=== PATIENT | male | born 1980 | race Caucasian/White ===

== ENCOUNTER 2023-10-10 07:24 | Outpatient (RCR) | payer OTHER, SELFPAY | END 2023-10-19 09:00 | disposition home or self-care (01) | LOC: PT 07:24 | DX: Z98.890 Other specified postprocedural states (principal) | CPT/HCPCS: 97010; 97014; 97140; 97161; 97535 ==

== ENCOUNTER 2023-10-20 10:28 | Outpatient (RCR) | payer OTHER, SELFPAY | END 2024-04-14 15:44 | disposition home or self-care (01) | LOC: PT 10:28 | DX: Z98.890 Other specified postprocedural states (principal) | CPT/HCPCS: 97010; 97014; 97110; 97112; 97140 ==

== ENCOUNTER 2023-10-24 11:40 | Emergency (ER) | payer OTHER, SELFPAY ==
[2023-10-24] VITALS (13 sets, daily range): BP systolic 140–162; BP diastolic 82–97; PULSE 76–91; RESP 13–26; TEMP 37–37.1; O2SAT 97–100; BMI 24.6; BMI 22.3
--- OUTSIDE RECORDS SUMMARY | 2023-10-24 11:59 | XMS_ITS | CCD ---
Author Name Unknown Address [address] [place] [address] Organization [facility] Care Team Providers Care Commission Broker Name Role Phone Yaritza Dowling MD Primary Care Provider SCHILLING, OSMAN Attending Unavailable SCHILLING, OSMAN Referring Unavailable DOWLING, YARITZA Primary Care Unavailable SCHILLING, OSMAN Attending Unavailable SCHILLING, OSMAN Referring Unavailable DOWLING, YARITZA Primary Care Unavailable SCHILLING, OSMAN Attending Unavailable SCHILLING, OSMAN Referring Unavailable DOWLING, YARITZA Primary Care Unavailable SELF, SELF Referring Unavailable SCHILLING, OSMAN Attending Unavailable DOWLING, YARITZA Primary Care Unavailable SCHILLING, OSMAN Referring Unavailable SCHILLING, OSMAN Attending Unavailable DOWLING, YARITZA Primary Care Unavailable DOWLING, YARITZA Primary Care Unavailable SCHILLING, OSMAN Referring Unavailable SCHILLING, OSMAN Attending Unavailable DOWLING, YARITZA Primary Care Unavailable SCHILLING, OSMAN Referring Unavailable SCHILLING, OSMAN Attending Unavailable DOWLING, YARITZA Primary Care Unavailable SCHILLING, OSMAN Attending Unavailable SELF, SELF Referring Unavailable DOWLING, YARITZA Primary Care Unavailable SCHILLING, OSMAN Attending Unavailable SCHILLING, OSMAN Referring Unavailable Yaritza Dowling MD Primary Care Provider [phone] [address] ., DR YARITZA Patel Primary Care Unavailable MISC, DR ALFORD Admitting Unavailable MISC, DR ALFORD Attending Unavailable Yaritza Dowling MD Primary Care Provider [phone] SUSIE, IRINA L Referring Unavailable DOWLING, YARITZA Primary Care Unavailable SUSIE, IRINA L Admitting Unavailable SUSIE, IRINA L Attending Unavailable DOWLING, YARITZA Primary Care Unavailable SUSIE, IRINA L Referring Unavailable DANIEL HICKMAN Attending Unavailable SUSIE, IRINA L Referring Unavailable SUSIE, IRINA L Attending Unavailable DOWLING, YARITZA Primary Care Unavailable SUSIE, IRINA L Referring Unavailable SUSIE, IRINA L Attending Unavailable DOWLING, YARITZA Primary Care Unavailable SUSIE, IRINA L Referring Unavailable SUSIE, IRINA L Attending Unavailable DOWLING, YARITZA Primary Care Unavailable DOWLING, YARITZA Primary Care Unavailable SCHILLING, OSMAN S Referring Unavailable SUSIE, IRINA L Attending Unavailable DOWLING, YARITZA Primary Care Unavailable SUSIE, IRINA L Referring Unavailable IRINA RICHARDS Attending Unavailable YARITZA DOWLING Primary Care Unavailable DANIEL HICKMAN Attending Unavailable SELF, SELF Referring Unavailable YARITZA DOWLING Attending Unavailable Medications Current Medications Medication Drug Class(es) Dates Sig (Normalized) Sig (Original) acetaminophen 325 mg / oxyCODONE hydrochloride 5 mg oral tablet (3 sources) Opioid Agonist Start: 10-17-2023 take 1-2 tablets by mouth every four to six hours as needed for pain oxyCODONE-acetami nophen 5-325 MG per tablet Indications: S/P rotator cuff repair 1-2 tabs PO every 4-6 hrs as needed for pain 60 tablet 0 10/17/2023 Active Start: 10-09-2023 End: 10-14-2023 take 1-2 tablets by mouth every four to six hours as needed for pain oxyCODONE-acetaminophen 5-325 MG per tablet Indications: S/P rotator cuff repair 1-2 tabs PO every 4-6 hrs as needed for pain 60 tablet 0 10/09/2023 10/14/2023 Active Start: 10-09-2023 End: 10-09-2023 take 1-2 tablets by mouth every four hours as needed oxyCODONE-acetaminophen (PERCOCET) 5-325 MG per tablet 1-2 tablet diazePAM 10 mg oral tablet (8 sources) Benzodiazepine Start: 09-20-2022 take 1 tablet by mouth every six hours as needed for anxiety diazepam 10 MG tablet Indications: Claustrophobia Take 1 tablet by mouth every 6 hours as needed for Anxiety for up to 1 day. 1 tablet 0 09/20/2022 Active Multiple Vitamin (multivitamin) tablet (1 source) take 1 tablet by mouth once daily Multiple Vitamin (multivitamin) tablet Take 1 tablet by mouth daily. 0 Active Completed/Discontinued Medications Medication Drug Class(es) Dates Sig (Normalized) Sig (Original) bupivacaine hydrochloride 5 mg/ml injectable solution (14 sources) Amide Local Anesthetic Start: 05-26-2023 End: 05-26-2023 bupivacaine (MARCAINE) 0.5 % injection 2 mL Start: 02-18-2023 End: 02-18-2023 bupivacaine (MARCAINE) 0.5 % injection 2 mL Start: 12-30-2022 End: 12-30-2022 bupivacaine (MARCAINE) 0.5 % injection 2 mL Start: 09-20-2022 End: 09-20-2022 bupivacaine (MARCAINE) 0.5 % injection 1 mL Start: 06-17-2022 End: 06-17-2022 bupivacaine (MARCAINE) 0.5 % injection 1 mL Start: 04-17-2022 End: 04-17-2022 bupivacaine (MARCAINE) 0.5 % injection 1 mL Start: 03-14-2022 End: 03-14-2022 bupivacaine (MARCAINE) 0.5 % injection 1 mL calcium chloride 0.0014 meq/ml / potassium chloride 0.004 meq/ml / sodium chloride 0.103 meq/ml / sodium lactate 0.028 meq/ml injectable solution (1 source) Start: 10-09-2023 End: 10-09-2023 Lactated ringers IV solution ceFAZolin 2000 mg injection (1 source) Cephalosporin Antibacterial Start: 10-09-2023 End: 10-09-2023 ceFAZolin (ANCEF) 2 g in dextrose 100 mL premix IVPB 1 ml dexamethasone phosphate 4 mg/ml injection (6 sources) Corticosteroid Start: 09-20-2022 End: 09-20-2022 dexAMETHasone (DECADRON) injection 4 mg Start: 06-17-2022 End: 06-17-2022 dexAMETHasone (DECADRON) inj ection 4 mg Start: 03-14-2022 End: 03-14-2022 dexAMETHasone (DECADRON) inj ection 4 mg Gadobenate (1 source) Start: 10-04-2022 End: 10-04-2022 Gadobenate dimeglumine (MULTIHANCE) 15 mL Iohexol (OMNIPAQUE) 300 MG/ML vial 50 mL (1 source) Start: 10-04-2022 End: 10-04-2022 Iohexol (OMNIPAQUE) 300 MG/ML vial 50 mL 10 ml lidocaine hydrochloride 10 mg/ml injection (15 sources) Antiarrhythmic, Amide Local Anesthetic Start: 05-26-2023 End: 05-26-2023 Lidocaine (XYLOCAINE) 10 mg/mL injection 4 mL Start: 02-18-2023 End: 02-18-2023 Lidocaine (XYLOCAINE) 10 mg/ mL injection 4 mL Start: 12-30-2022 End: 03-13-2023 Lidocaine (XYLOCAINE) 10 mg/ mL injection 4 mL Start: 10-04-2022 End: 10-04-2022 Lidocaine (XYLOCAINE) 10 mg/ mL injection 100 mg Start: 09-20-2022 End: 09-20-2022 Lidocaine (XYLOCAINE) 10 mg/ mL injection 1 mL Start: 06-17-2022 End: 06-17-2022 lidocaine (XYLOCAINE) 10 mg/ mL injection 1 mL Start: 04-17-2022 End: 04-17-2022 lidocaine (XYLOCAINE) 10 mg/ mL injection 4 mL Start: 03-14-2022 End: 03-14-2022 lidocaine (XYLOCAINE) 10 mg/ mL injection 1 mL 1 ml methylPREDNISolone acetate 40 mg/ml injection (6 sources) Corticosteroid Start: 05-26-2023 End: 05-26-2023 methylPREDNISolone acetate (DEPO-MEDROL) injection 40 mg Start: 02-18-2023 End: 02-18-2023 methylPREDNISolone acetate ( DEPO-MEDROL) injection 40 mg Start: 12-30-2022 End: 12-30-2022 methylPREDNISolone acetate ( DEPO-MEDROL) injection 40 mg 2 ml ondansetron 2 mg/ml injection (1 source) Serotonin-3 Receptor Antagonist Start: 10-09-2023 End: 10-09-2023 take 4 mg intravenously every four hours as needed Ondansetron 4mg/2ml (ZOFRAN) injection 4 mg ROPivacaine (NAROPIN) 0.2% 1,500 mg, On-Q Pump 1 Each (1 source) Start: 10-09-2023 End: 10-09-2023 ROPivacaine (NAROPIN) 0.2% 1,500 mg, On-Q Pump 1 Each 10 ml sodium chloride 9 mg/ml injection (2 sources) Start: 04-17-2022 End: 04-17-2022 sodium chloride (PF) 0.9 % injection 5 mL 1 ml triamcinolone acetonide 40 mg/ml prefilled syringe (6 sources) Corticosteroid Start: 09-20-2022 End: 09-20-2022 triamcinolone (KENALOG-40) injection 2 mL Start: 06-17-2022 End: 06-17-2022 triamcinolone (KENALOG-40) i njection 2 mL Start: 03-14-2022 End: 03-14-2022 triamcinolone (KENALOG-40) i njection 2 mL Problems Active Problems Problem Classification Problem Date Documented Date Episodic/Chronic Anxiety disorders (1 source) Claustrophobia; Translations: [Claustrophobia] Chronic Osteoarthritis (6 sources) Arthritis of left acromioclavicular joint; Translations: [Primary osteoarthritis, left shoulder] Onset: 11-21-2022 Chronic Other connective tissue disease (4 sources) Infraspinatus tendinitis; Translations: [Other shoulder lesions, left shoulder] Episodic Other connective tissue disease (5 sources) Biceps tendinitis; Translations: [Bicipital tendinitis, left shoulder] Episodic Other connective tissue disease (2 sources) Tear of left rotator cuff; Translations: [Unspecified rotator cuff tear or rupture of left shoulder, not specified as traumatic] 07-28-2023 Episodic Residual codes; unclassified (2 sources) Other specified postprocedural states; Translations: [Other specified postprocedural states] Onset: 10-09-2023 Episodic Residual codes; unclassified (1 source) History of operative procedure on shoulder; Translations: [Other specified postprocedural states] 10-23-2023 Episodic Unclassified (2 sources) MRI Results; Translations: [MRI Results] Onset: 03-14-2022 Past or Other Problems Problem Classification Problem Date Documented Da te Episodic/Chronic Other connective tissue disease (2 sources) Other shoulder lesions, left shoulder; Translations: [Other shoulder lesions, left shoulder] Onset: 06-17-2022 Episodic Other connective tissue disease (6 sources) Impingement syndrome of left shoulder region; Translations: [Impingement syndrome of left shoulder] Onset: 11-21-2022 Episodic Other connective tissue disease (1 source) Impingement syndrome of left shoulder; Translations: [Impingement syndrome of left shoulder] Onset: 11-21-2022 Episodic Other connective tissue disease (2 sources) Bicipital tendinitis, left shoulder; Translations: [Bicipital tendinitis, left shoulder] Onset: 11-21-2022 Episodic Sprains and strains (15 sources) Anterior to posterior tear of superior glenoid labrum of left shoulder; Translations: [Superior glenoid labrum lesion of left shoulder, initial encounter] Onset: 10-10-2022 Episodic Results Test Name Value Interpretation Reference Range Facility Operative Reporton 12-28-202 3 Operative Report [id number] 0TIFF [facility] Operative Reporton 3 Operative Report [id number]#1.0 0TIFF [facility] Consultation Noteon 10-01-20 Consultation Note [id number] 0TIFF [facility] Consultation Noteon 08-12-20 Consultation Note [id number] 0TIFF [facility] Consultation Noteon 05-27-20 Consultation Note [id number] 0CD:127 [facility] LARGE JOINT/BURSA INJECTION AND/OR ASPIRATION: L subacromial bursaon 05-26-2023 ARMAND Conley 05/26/2023 8:21 AM LARGE JOINT/BURSA INJECTION AND/OR ASPIRATION: L subacromial bursa Date/Time: 05/26/2023 8:00 AM Performed by: ARMAND Conley Authorized by: ARMAND Conley Supporting Documentation Indications: pain Procedure Details: Location: shoulder - L subacromial bursa Local Anesthetic: ethyl chloride (cold spray) Needle size: 22 G Approach: posterior Medication Verification: I have personally verified and performed the final check of the medication(s) used in this procedure prior to administration. The following items were included during the verification process for medication(s) administered: drug name, strength, volume, expiration, physical integrity and appearance of the medication(s). Medications administered: 2 mL bupivacaine 0.5 %; 4 mL lidocaine 10 mg/mL; 40 mg methylPREDNISolone acetate 40 MG/ML Patient tolerance: patient tolerated the procedure well with no immediate complications Consent: Consent was obtained prior to the procedure after discussion of the risks, benefits and alternatives, and expected outcomes were discussed with the patient. The possibilities of reaction to medication, bleeding, infection, the need for additional procedures, failure to diagnosis a condition, and creating a complication requiring operation were discussed with the patient. The patient concurred with the proposed plan, giving consent. Preparation: Patient was prepped in the usual sterile fashion. The patient was prepped with alcohol. [facility] Radiology Study observation (narrative) [facility] Consultation Noteon 02-20-20 Consultation Note [id number] 0CD:127 [facility] LARGE JOINT/BURSA INJECTION AND/OR ASPIRATION: L subacromial bursaon 02-18-2023 ARMAND Conley 02/18/2023 9:18 AM LARGE JOINT/BURSA INJECTION AND/OR ASPIRATION: L subacromial bursa Date/Time: 02/18/2023 8:40 AM Performed by: ARMAND Conley Authorized by: ARMAND Conley Supporting Documentation Indications: pain Procedure Details: Location: shoulder - L subacromial bursa Local Anesthetic: ethyl chloride (cold spray) Needle size: 22 G Approach: posterior Medication Verification: I have personally verified and performed the final check of the medication(s) used in this procedure prior to administration. The following items were included during the verification process for medication(s) administered: drug name, strength, volume, expiration, physical integrity and appearance of the medication(s). Medications administered: 2 mL bupivacaine 0.5 %; 4 mL lidocaine 10 mg/mL; 40 mg methylPREDNISolone acetate 40 MG/ML Patient tolerance: patient tolerated the procedure well with no immediate complications Consent: Consent was obtained prior to the procedure after discussion of the risks, benefits and alternatives, and expected outcomes were discussed with the patient. The possibilities of reaction to medication, bleeding, infection, the need for additional procedures, failure to diagnosis a condition, and creating a complication requiring operation were discussed with the patient. The patient concurred with the proposed plan, giving consent. Preparation: Patient was prepped in the usual sterile fashion. The patient was prepped with alcohol. [facility] Radiology Study observation (narrative) [facility] Consultation Noteon 01-02-20 Consultation Note [id number] CD:127 [facility] LARGE JOINT/BURSA INJECTION AND/OR ASPIRATION: L glenohumeralon 01-01-2023 Radiology Study observation (narrative) [facility] LARGE JOINT/BURSA INJECTION AND/OR ASPIRATION: L glenohumeralon 12-30-2022 Mu Little, ATC 01/01/2023 11:09 AM LARGE JOINT/BURSA INJECTION AND/OR ASPIRATION: L glenohumeral Date/Time: 12/30/2022 10:00 AM Supporting Documentation Indications: pain Procedure Details: Location: shoulder - L glenohumeral Local Anesthetic: ethyl chloride (cold spray) and lidocaine 1% Total Local Anesthetic: 3 mLs Needle size: 22 G (22 spinal gauge ) Approach: posterior Medication Verification: I have personally verified and performed the final check of the medication(s) used in this procedure prior to administration. The following items were included during the verification process for medication(s) administered: drug name, strength, volume, expiration, physical integrity and appearance of the medication(s). Medications administered: 2 mL bupivacaine 0.5 %; 4 mL lidocaine 10 mg/mL; 40 mg methylPREDNISolone acetate 40 MG/ML Patient tolerance: patient tolerated the procedure well with no immediate complications Consent: Consent was obtained prior to the procedure after discussion of the risks, benefits and alternatives, and expected outcomes were discussed with the patient. The possibilities of reaction to medication, bleeding, infection, the need for additional procedures, failure to diagnosis a condition, and creating a complication requiring operation were discussed with the patient. The patient concurred with the proposed plan, giving consent. Preparation: Patient was prepped in the usual sterile fashion. The patient was prepped with alcohol. [facility] LARGE JOINT/BURSA INJECTION AND/OR ASPIRATION: L subacromial bursaon 10-08-2022 Radiology Study observation (narrative) [facility] MR Shoulder - left W rogerio Salas 10-07-2022 IMPRESSION: 1. Mild rotator cuff tendinosis without tear. 2. Intact biceps tendon. 3. SLAP tear extending from the biceps anchor posteriorly to the 9:00 position. 4. Tear of the inferior glenohumeral ligament. 5. Normal variant anatomy the anterior superior labrum. 6. Low to intermediate grade glenohumeral chondrosis. 7. Mild AC joint osteoarthritis. RADIOLOGY EXAM: MRI SHOULDER LEFT WITH CONTRAST REASON FOR EXAM: Left shoulder pain. TECHNIQUE: Multiplanar, multisequence imaging of the left shoulder was performed following the uneventful intra-articular administration of contrast. See separate arthrogram report for procedure description. COMPARISON: Prior MRI 02/22/2022. FINDINGS: The acromioclavicular joint is congruent with mild joint space narrowing capsular hypertrophy. No significant narrowing of the supraspinatus outlet. Trace amount of fluid is present in the subacromial subdeltoid bursa. This is not contrast equivalent in signal and could reflect mild bursitis. Mild thickening and intermediate signal involving the supraspinatus tendon and infraspinatus tendon consistent with tendinosis. No tear. The teres minor tendon is intact. Subscapularis tendon is intact. The extracapsular biceps tendon is within the bicipital groove. Intracapsular biceps tendon is unremarkable. The rotator cuff musculature demonstrates symmetric bulk and signal. The humerus is centered on the glenoid. There is low to intermediate grade chondrosis of the glenohumeral cartilage. Diminutive appearance of the anterior superior labrum with thickening of the middle glenohumeral ligament suggests underlying normal variant anatomy. Contrast equivalent signal extends into the substance of the labrum at the level of the biceps anchor extending posteriorly to the 9:00 position consistent with a SLAP tear. No other detached labral tear identified. No intra-articular body identified. There is also contrast signal extending along the proximal medial margin of the humerus consistent with a tear of the inferior glenohumeral ligament (series 6, image 8). The bone marrow signal is normal. Quadrilateral space is patent. No axillary lymphadenopathy identified. RADIOLOGY Drew Sy M D - 10/07/2022 EXAM: MRI SHOULDER LEFT WITH CONTRAST REASON FOR EXAM: Left shoulder pain. TECHNIQUE: Multiplanar, multisequence imaging of the left shoulder was performed following the uneventful intra-articular administration of contrast. See separate arthrogram report for procedure description. COMPARISON: Prior MRI 02/22/2022. FINDINGS: The acromioclavicular joint is congruent with mild joint space narrowing capsular hypertrophy. No significant narrowing of the supraspinatus outlet. Trace amount of fluid is present in the subacromial subdeltoid bursa. This is not contrast equivalent in signal and could reflect mild bursitis. Mild thickening and intermediate signal involving the supraspinatus tendon and infraspinatus tendon consistent with tendinosis. No tear. The teres minor tendon is intact. Subscapularis tendon is intact. The extracapsular biceps tendon is within the bicipital groove. Intracapsular biceps tendon is unremarkable. The rotator cuff musculature demonstrates symmetric bulk and signal. The humerus is centered on the glenoid. There is low to intermediate grade chondrosis of the glenohumeral cartilage. Diminutive appearance of the anterior superior labrum with thickening of the middle glenohumeral ligament suggests underlying normal variant anatomy. Contrast equivalent signal extends into the substance of the labrum at the level of the biceps anchor extending posteriorly to the 9:00 position consistent with a SLAP tear. No other detached labral tear identified. No intra-articular body identified. There is also contrast signal extending along the proximal medial margin of the humerus consistent with a tear of the inferior glenohumeral ligament (series 6, image 8). The bone marrow signal is normal. Quadrilateral space is patent. No axillary lymphadenopathy identified. IMPRESSION IMPRESSION: 1. Mild rotator cuff tendinosis without tear. 2. Intact biceps tendon. 3. SLAP tear extending from the biceps anchor posteriorly to the 9:00 position. 4. Tear of the inferior glenohumeral ligament. 5. Normal variant anatomy the anterior superior labrum. 6. Low to intermediate grade glenohumeral chondrosis. 7. Mild AC joint osteoarthritis. [facility] MR Shoulder - left W contras t IVOrdered By: Drew Sy on 10-07-2022 [facility] Work Phone: MRI SHOULDER LEFT WITH CONTR Corey 10-07-2022 MRI SHOULDER LEFT WITH CONTRAST EXAM: MRI SHOULDER LEFT WITH CONTRAST REASON FOR EXAM: Left shoulder pain. TECHNIQUE: Multiplanar, multisequence imaging of the left shoulder was performed following the uneventful intra-articular administration of contrast. See separate arthrogram report for procedure description. COMPARISON: Prior MRI 02/22/2022. FINDINGS: The acromioclavicular joint is congruent with mild joint space narrowing capsular hypertrophy. No significant narrowing of the supraspinatus outlet. Trace amount of fluid is present in the subacromial subdeltoid bursa. This is not contrast equivalent in signal and could reflect mild bursitis. Mild thickening and intermediate signal involving the supraspinatus tendon and infraspinatus tendon consistent with tendinosis. No tear. The teres minor tendon is intact. Subscapularis tendon is intact. The extracapsular biceps tendon is within the bicipital groove. Intracapsular biceps tendon is unremarkable. The rotator cuff musculature demonstrates symmetric bulk and signal. The humerus is centered on the glenoid. There is low to intermediate grade chondrosis of the glenohumeral cartilage. Diminutive appearance of the anterior superior labrum with thickening of the middle glenohumeral ligament suggests underlying normal variant anatomy. Contrast equivalent signal extends into the substance of the labrum at the level of the biceps anchor extending posteriorly to the 9:00 position consistent with a SLAP tear. No other detached labral tear identified. No intra-articular body identified. There is also contrast signal extending along the proximal medial margin of the humerus consistent with a tear of the inferior glenohumeral ligament (series 6, image 8). The bone marrow signal is normal. Quadrilateral space is patent. No axillary lymphadenopathy identified. IMPRESSION: 1. Mild rotator cuff tendinosis without tear. 2. Intact biceps tendon. 3. SLAP tear extending from the biceps anchor posteriorly to the 9:00 position. 4. Tear of the inferior glenohumeral ligament. 5. Normal variant anatomy the anterior superior labrum. 6. Low to intermediate grade glenohumeral chondrosis. 7. Mild AC joint osteoarthritis. Normal [facility] MR Shoulder - left W bhargavas simon Salas 10-04-2022 Radiology Study observation (narrative) [facility] RF Shoulder - left Arthrogra [facility] 10-04-2022 IMPRESSION: Uncomplicated intraarticular right shoulder arthrogram injection of 14 mL dilute gadolinium-based solution. RADIOLOGY FLUOROSCOPIC-GUIDED RIGHT SHOULDER ARTHROGRAM INJECTION EXAM DATE AND TIME: 10/04/2022, 9:44 AM EST INDICATION: 42 year old Male with right shoulder pain. Concern for SLAP tear OPERATORS: Radha Mcduffie DO INFORMED CONSENT: Informed consent was obtained with the patient acknowledging and understanding potential risks including but not limited to pain, infection, bleeding, and damage to surrounding structures. The patient agreed to proceed. PROCEDURE AND FINDINGS: Prior to the start of the procedure, a time-out was performed.. The patient was positioned in the supine position on the fluoroscopic table with the right arm in external rotation. The anterior aspect of the shoulder was prepped and draped in usual sterile fashion. Under fluoroscopic guidance following local anesthesia with 1% lidocaine, a 20-gauge spinal needle was directed into the shoulder joint via a rotator interval approach. Intraarticular location of the needle tip was confirmed under fluoroscopy via injection of approximately 2 mL Omnipaque 300 contrast. Subsequently, a total of 14 mL dilute gadolinium-based solution (1:200) containing 0.1 mL of MultiHance and 20 mL of sterile saline was administered into the shoulder joint. The needle was removed and hemostasis achieved. A sterile dressing was applied. There were no immediate complications. RADIOLOGY Radha Mcdufife MD - 10/04/2022 FLUOROSCOPIC-GUIDED RIGHT SHOULDER ARTHROGRAM INJECTION EXAM DATE AND TIME: 10/04/2022, 9:44 AM EST INDICATION: 42 year old Male with right shoulder pain. Concern for SLAP tear OPERATORS: Radha Mcduffie DO INFORMED CONSENT: Informed consent was obtained with the patient acknowledging and understanding potential risks including but not limited to pain, infection, bleeding, and damage to surrounding structures. The patient agreed to proceed. PROCEDURE AND FINDINGS: Prior to the start of the procedure, a time-out was performed.. The patient was positioned in the supine position on the fluoroscopic table with the right arm in external rotation. The anterior aspect of the shoulder was prepped and draped in usual sterile fashion. Under fluoroscopic guidance following local anesthesia with 1% lidocaine, a 20-gauge spinal needle was directed into the shoulder joint via a rotator interval approach. Intraarticular location of the needle tip was confirmed under fluoroscopy via injection of approximately 2 mL Omnipaque 300 contrast. Subsequently, a total of 14 mL dilute gadolinium-based solution (1:200) containing 0.1 mL of MultiHance and 20 mL of sterile saline was administered into the shoulder joint. The needle was removed and hemostasis achieved. A sterile dressing was applied. There were no immediate complications. IMPRESSION IMPRESSION: Uncomplicated intraarticular right shoulder arthrogram injection of 14 mL dilute gadolinium-based solution. [employer] Radiology Study observation (narrative) [employer] [facility] RF Shoulder - left Arthrogra mOrdered By: Radha Mcduffie on 10-04-2022 [facility] Work Phone: XR FLUORO ARTHROGRAM CAREY Epps 10-04-2022 XR FLUORO ARTHROGRAM SHOULDER LEFT FLUOROSCOPIC-GUIDED RIGHT SHOULDER ARTHROGRAM INJECTION EXAM DATE AND TIME: 10/04/2022, 9:44 AM EST INDICATION: 42 year old Male with right shoulder pain. Concern for SLAP tear OPERATORS: Radha Mcduffie DO INFORMED CONSENT: Informed consent was obtained with the patient acknowledging and understanding potential risks including but not limited to pain, infection, bleeding, and damage to surrounding structures. The patient agreed to proceed. PROCEDURE AND FINDINGS: Prior to the start of the procedure, a time-out was performed.. The patient was positioned in the supine position on the fluoroscopic table with the right arm in external rotation. The anterior aspect of the shoulder was prepped and draped in usual sterile fashion. Under fluoroscopic guidance following local anesthesia with 1% lidocaine, a 20-gauge spinal needle was directed into the shoulder joint via a rotator interval approach. Intraarticular location of the needle tip was confirmed under fluoroscopy via injection of approximately 2 mL Omnipaque 300 contrast. Subsequently, a total of 14 mL dilute gadolinium-based solution (1:200) containing 0.1 mL of MultiHance and 20 mL of sterile saline was administered into the shoulder joint. The needle was removed and hemostasis achieved. A sterile dressing was applied. There were no immediate complications. IMPRESSION: Uncomplicated intraarticular right shoulder arthrogram injection of 14 mL dilute gadolinium-based solution. Normal [facility] LARGE JOINT/BURSA INJECTION AND/OR ASPIRATION: L subacromial bursaon 09-20-2022 Osman Schilling MD 10/08/2022 11:16 AM LARGE JOINT/BURSA INJECTION AND/OR ASPIRATION: L subacromial bursa Date/Time: 09/20/2022 7:10 AM Supporting Documentation Indications: pain Procedure Details: Location: shoulder - L subacromial bursa Needle size: 22 G Approach: posterior Medication Verification: I have personally verified and performed the final check of the medication(s) used in this procedure prior to administration. The following items were included during the verification process for medication(s) administered: drug name, strength, volume, expiration, physical integrity and appearance of the medication(s). Medications administered: 2 mL triamcinolone 40 MG/ML; 1 mL lidocaine 10 mg/mL; 1 mL bupivacaine 0.5 %; 4 mg dexAMETHasone 4 MG/ML Patient tolerance: patient tolerated the procedure well with no immediate complications Pre-Procedure Details The attending physician was present for the entire procedure. Consent: Consent was obtained prior to the procedure after discussion of the risks, benefits and alternatives, and expected outcomes were discussed with the patient. The possibilities of reaction to medication, bleeding, infection, the need for additional procedures, failure to diagnosis a condition, and creating a complication requiring operation were discussed with the patient. The patient concurred with the proposed plan, giving consent. Preparation: Patient was prepped in the usual sterile fashion. The patient was prepped with alcohol. [facility] LARGE JOINT/BURSA INJECTION AND/OR ASPIRATION: L subacromial bursaon 06-17-2022 Jose Maher, JEANNETTE 06/17/2022 11:36 AM LARGE JOINT/BURSA INJECTION AND/OR ASPIRATION: L subacromial bursa Date/Time: 06/17/2022 8:30 AM Procedure Details: Location: shoulder - L subacromial bursa Medication Verification: I have personally verified and performed the final check of the medication(s) used in this procedure prior to administration. The following items were included during the verification process for medication(s) administered: drug name, strength, volume, expiration, physical integrity and appearance of the medication(s). Medications administered: 1 mL bupivacaine 0.5 %; 1 mL lidocaine 10 mg/mL; 4 mg dexAMETHasone 4 MG/ML; 2 mL triamcinolone 40 MG/ML Patient tolerance: patient tolerated the procedure well with no immediate complications Pre-Procedure Details The attending physician was present for the entire procedure. Consent: Consent was obtained prior to the procedure after discussion of the risks, benefits and alternatives, and expected outcomes were discussed with the patient. The possibilities of reaction to medication, bleeding, infection, the need for additional procedures, failure to diagnosis a condition, and creating a complication requiring operation were discussed with the patient. The patient concurred with the proposed plan, giving consent. Preparation: Patient was prepped in the usual sterile fashion. The patient was prepped with alcohol. [facility] Radiology Study observation (narrative) [facility] UPPER EXTREMITY INJECTION: l eft infraspinatus tendon insertionon 04-17-2022 Jose Maher, ATC 04/17/2022 1:43 PM UPPER EXTREMITY INJECTION: left infraspinatus tendon insertion Date/Time: 04/17/2022 9:30 AM Procedure Details: Procedure: tendon origin / insertion injection Location: shoulder - left infraspinatus tendon insertion Local Anesthetic: bupivacaine 0.5% and lidocaine 1% Guidance: ultrasound Ultrasound probe size: 12 mHz linear Images were saved electronically. Medications administered: 1 mL bupivacaine 0.5 %; 4 mL lidocaine 10 mg/mL; 5 mL sodium chloride (PF) 0.9 % Biological Treatment: platelet-rich plasma injectionPRP Harvested: 9.5 mL Medication Verification: I have personally verified and performed the final check of the medication(s) used in this procedure prior to administration. The following items were included during the verification process for medication(s) administered: drug name, strength, volume, expiration, physical integrity and appearance of the medication(s). Patient tolerance: patient tolerated the procedure well with no immediate complications Consent: Consent was obtained prior to the procedure after discussion of the risks, benefits and alternatives, and expected outcomes were discussed with the patient. The possibilities of reaction to medication, bleeding, infection, the need for additional procedures, failure to diagnosis a condition, and creating a complication requiring operation were discussed with the patient. The patient concurred with the proposed plan, giving consent. Preparation: Patient was prepped in the usual sterile fashion. The patient was prepped with Chloraprep. [facility] Radiology Study observation (narrative) [facility] US Unspecified body regionon 04-17-2022 Image Storage This order is to facilitate the storage of the image. [facility] LARGE JOINT/BURSA INJECTION AND/OR ASPIRATION: L subacromial bursaon 04-09-2022 Radiology Study observation (narrative) [facility] LARGE JOINT/BURSA INJECTION AND/OR ASPIRATION: L subacromial bursaon 03-14-2022 Osman Schilling MD 04/09/2022 8:53 AM LARGE JOINT/BURSA INJECTION AND/OR ASPIRATION: L subacromial bursa Date/Time: 03/14/2022 10:00 AM Procedure Details: Location: shoulder - L subacromial bursa Medication Verification: I have personally verified and performed the final check of the medication(s) used in this procedure prior to administration. The following items were included during the verification process for medication(s) administered: drug name, strength, volume, expiration, physical integrity and appearance of the medication(s). Medications administered: 1 mL bupivacaine 0.5 %; 1 mL lidocaine 10 mg/mL; 4 mg dexAMETHasone 4 MG/ML; 2 mL triamcinolone 40 MG/ML Patient tolerance: patient tolerated the procedure well with no immediate complications Consent: Consent was obtained prior to the procedure after discussion of the risks, benefits and alternatives, and expected outcomes were discussed with the patient. The possibilities of reaction to medication, bleeding, infection, the need for additional procedures, failure to diagnosis a condition, and creating a complication requiring operation were discussed with the patient. The patient concurred with the proposed plan, giving consent. Preparation: Patient was prepped in the usual sterile fashion. The patient was prepped with alcohol. [facility] MR Shoulder - left EDIS schmitz 02-22-2022 Impression: 1. No evidence of rotator cuff tear. Moderate tendinosis of the infraspinatus with bursal sided fraying. Mild subacromial subdeltoid bursitis. 2. Suspect superior labral tear. This can be further assessed with MRI arthrogram as felt clinically indicated. RADIOLOGY Exam: MRI SHOULDER LEFT WITHOUT CONTRAST Indication: Overhead injury September 2020. Worsening pain. Technique: Multiplanar multisequence MRI of the left shoulder was obtained without intravenous contrast. Comparison: Left shoulder radiograph February 11, 2022 Findings: Bone: There is no evidence of acute fracture, osteonecrosis, or suspicious marrow lesion. No acute Hill-Sachs or Bankart lesion. Cystic changes of the superior humeral head are noted. AC joint: Mild acromioclavicular joint degenerative changes. A curved acromial undersurface is seen. The coracoclavicular and coracoacromial ligaments are intact. Bursa: Mild subacromial subdeltoid bursitis. Rotator cuff: The teres minor is intact. There is moderate insertional tendinosis of the infraspinatus with mild bursal sided fraying. The supraspinatus is intact. The subscapularis is intact. No evidence of muscle atrophy or acute muscle denervation. Biceps tendon: The long head of the biceps tendon is maintained in anatomic location without tear. There is no biceps tenosynovitis. Labrum: Suspect superior labral tear, image 13 series 5 and image 9 series 9. Joint: No high-grade chondral lesions of the glenohumeral joint. There is no glenohumeral joint effusion or synovitis. The supraclavicular, spinoglenoid, and quadrilateral space have preserved fat planes. RADIOLOGY To, Zack Perry MD - 02/22/2022 Exam: MRI SHOULDER LEFT WITHOUT CONTRAST Indication: Overhead injury September 2020. Worsening pain. Technique: Multiplanar multisequence MRI of the left shoulder was obtained without intravenous contrast. Comparison: Left shoulder radiograph February 11, 2022 Findings: Bone: There is no evidence of acute fracture, osteonecrosis, or suspicious marrow lesion. No acute Hill-Sachs or Bankart lesion. Cystic changes of the superior humeral head are noted. AC joint: Mild acromioclavicular joint degenerative changes. A curved acromial undersurface is seen. The coracoclavicular and coracoacromial ligaments are intact. Bursa: Mild subacromial subdeltoid bursitis. Rotator cuff: The teres minor is intact. There is moderate insertional tendinosis of the infraspinatus with mild bursal sided fraying. The supraspinatus is intact. The subscapularis is intact. No evidence of muscle atrophy or acute muscle denervation. Biceps tendon: The long head of the biceps tendon is maintained in anatomic location without tear. There is no biceps tenosynovitis. Labrum: Suspect superior labral tear, image 13 series 5 and image 9 series 9. Joint: No high-grade chondral lesions of the glenohumeral joint. There is no glenohumeral joint effusion or synovitis. The supraclavicular, spinoglenoid, and quadrilateral space have preserved fat planes. IMPRESSION Impression: 1. No evidence of rotator cuff tear. Moderate tendinosis of the infraspinatus with bursal sided fraying. Mild subacromial subdeltoid bursitis. 2. Suspect superior labral tear. This can be further assessed with MRI arthrogram as felt clinically indicated. [facility] Radiology Study observation (narrative) [facility] MR Shoulder - left WO contra stOrdered By: Zack Velásquez on 02-22-2022 [employer] Work Phone: XR Shoulder - left 2 [employer] 02-11-2022 Body surface area Derived from formula 1.99 m2 [employer] Xrays of the left shoulder demonstrating no acute abnormalities. Mild AC joint OA noted. [employer] X-rays, 3 views of t he left shoulder were ordered and interpreted in the presence of the patient by me today. These demonstrate normal mineralization, normal alignment. AHI and CC intervals were within normal limits. There is no evidence of acute osseous abnormality or fracture. The glenohumeral joint demonstrates no evidence of osteoarthrosis. The acromioclavicular joint demonstrates mild evidence of osteoarthrosis. [employer] Radiology Study [facility]narrative[facility] [employer] [facility] Vital Signs Date Time Vital Sign Value Performing Clinician Karen santiago 10-23-2023 11:18-0500 Body height 180.3 cm Daniel Hickman APRNBright[employer] Work Phone: [employer] 10-23-2023 11:18-0500 Body mass index (BMI) [Ratio] 22.32 kg/m2 Daniel Hickman [employer] Work Phone: [employer] 10-23-2023 11:18-0500 Body weight 72.58 kg Daniel Hickman [employer] Work Phone: [employer] 10-09-2023 14:50-0500 Diastolic blood pressure 72 mm[Hg] Irina Richards MD Work Phone: [employer] 10-09-2023 14:50-0500 Heart rate 79 /min Irina Richards MD Work Phone: [employer] 10-09-2023 14:50-0500 Respiratory rate 14 /min Irina Richards MD Work Phone: [employer] 10-09-2023 14:50-0500 SaO2% (BldA) [Mass fraction] 99 % Irina Richards MD Work Phone: [employer] 10-09-2023 14:50-0500 Systolic blood pressure 125 mm[Hg] Irina Richards MD Work Phone: [facility] 10-09-2023 13:50-0500 Body temperature 97.11 [degF] Irina Richards MD Work Phone: [facility] 10-09-2023 08:22-0500 Body height 180.3 cm Irina Richards MD Work Phone: [facility] 09-30-2023 11:08-0500 Body height 182.9 cm Irina Richards MD Work Phone: [facility] 09-30-2023 11:08-0500 Body mass index (BMI) [Ratio] 21.97 kg/m2 Irina Richards MD Work Phone: [facility] 09-30-2023 11:08-0500 Body temperature 98.29 [degF] Irina Richards MD Work Phone: [facility] 09-30-2023 11:08-0500 Body weight 73.48 kg Irina Richards MD Work Phone: [facility] 07-28-2023 08:17-0400 Body height 182.9 cm Irina Richards MD Work Phone: [facility] 07-28-2023 08:17-0400 Body mass index (BMI) [Ratio] 21.97 kg/m2 Irina Richards MD Work Phone: [facility] 07-28-2023 08:17-0400 Body temperature 98.01 [degF] Irina Richards MD Work Phone: [facility] 07-28-2023 08:17-0400 Body weight 73.48 kg Irina Richards MD Work Phone: [facility] 05-26-2023 08:04-0400 Body height 182.9 cm Daniel Hickman APRN-[employer]PER[employer] Work Phone: [facility] 05-26-2023 08:04-0400 Body mass index (BMI) [Ratio] 21.97 kg/m2 Daniel Hickman APRN-[employer] Work Phone: [facility] 05-26-2023 08:04-0400 Body temperature 97.81 [degF] Daniel Hickman APRN-[employer]PER[employer] Work Phone: [facility] 05-26-2023 08:04-0400 Body weight 73.48 kg Daniel Hickman APRN-[employer]PER[employer] Work Phone: [facility] 02-18-2023 08:24-0400 Body height 182.9 cm Daniel Hickman CREW PERSON-[employer] Work Phone: [facility] 02-18-2023 08:24-0400 Body mass index (BMI) [Ratio] 21.97 kg/m2 Daniel Hickman [employer] Work Phone: [facility] 02-18-2023 08:24-0400 Body temperature 97.7 [degF] Daniel Hickman APRN-[employer]PER[employer] Work Phone: [facility] 02-18-2023 08:24-0400 Body weight 73.48 kg Daniel Hickman APRN-[employer]PER[employer] Work Phone: [facility] 12-30-2022 09:42-0400 Body height 182.9 cm Irina Richards MD Work Phone: [facility] 12-30-2022 09:42-0400 Body mass index (BMI) [Ratio] 21.97 kg/m2 Irina Richards MD Work Phone: [facility] 12-30-2022 09:42-0400 Body temperature 98.6 [degF] Irina Richards MD Work Phone: [facility] 12-30-2022 09:42-0400 Body weight 73.48 kg Irina Richards MD Work Phone: [facility] 11-22-2022 08:15-0500 Body height 182.9 cm Irina Richards MD Work Phone: [facility] 11-22-2022 08:15-0500 Body mass index (BMI) [Ratio] 21.97 kg/m2 Irina Richards MD Work Phone: [facility] 11-22-2022 08:15-0500 Body temperature 98.1 [degF] Irina Richards MD Work Phone: [facility] 11-22-2022 08:15-0500 Body weight 73.48 kg Irina Richards MD Work Phone: [facility] 09-20-2022 07:23-0500 Body height 182.9 cm Osman Schilling MD Work Phone: [facility] 09-20-2022 07:23-0500 Body mass index (BMI) [Ratio] 23.05 kg/m2 Osman Schilling MD Work Phone: [facility] 09-20-2022 07:23-0500 Body weight 77.1 kg Osman Schilling MD Work Phone: [facility] 06-17-2022 08:55-0400 Body height 182.9 cm Osman Schilling MD Work Phone: [facility] 06-17-2022 08:55-0400 Body mass index (BMI) [Ratio] 23.06 kg/m2 Osman Schilling MD Work Phone: [facility] 06-17-2022 08:55-0400 Body weight 77.11 kg Osman Schilling MD Work Phone: [facility] 04-17-2022 09:05-0400 Body height 182.9 cm Osman Schilling MD Work Phone: [facility] 04-17-2022 09:05-0400 Body mass index (BMI) [Ratio] 23.06 kg/m2 Osman Schilling MD Work Phone: [facility] 04-17-2022 09:05-0400 Body weight 77.11 kg Osman Schilling MD Work Phone: [facility] 03-14-2022 09:50-0400 Body height 182.9 cm Osman Schilling MD Work Phone: [facility] 03-14-2022 09:50-0400 Body mass index (BMI) [Ratio] 23.16 kg/m2 Osman Schilling MD Work Phone: [facility] 03-14-2022 09:50-0400 Body weight 77.47 kg Osman Schilling MD Work Phone: [facility] Encounters Encounter Date Encounter Type Care Provider Facility Start: 10-23-2023 End: 10-23-2023 Postop follow up visit related to original px Daniel Hickman [employer] Work Phone: [facility] Comment on above: S/P rotator cuff rep air (Primary Dx); Status post labral repair of shoulder Start: 10-09-2023 End: 10-09-2023 ambulatory IRINA RICHARDS [facility] Start: 10-09-2023 End: 10-09-2023 Subsequent hospital visit by physician Irina Richards MD Work Phone: [facility] Comment on above: Tear of left rotator cuff, unspecified tear extent, unspecified whether traumatic Start: 10-03-2023 ambulatory IRINA Silva [facility] Start: 10-03-2023 Encounter for other preprocedural examination IRINAJEANCARLOS RICHARDS [facility] Start: 09-30-2023 ambulatory IRINA Silva [facility] Start: 09-30-2023 End: 09-30-2023 Office outpatient visit 40 minutes Irina Richards MD Work Phone: [facility] Comment on above: Tear of left rotator cuff, unspecified tear extent, unspecified whether traumatic (Primary Dx); Superior labrum txecfvns-jm-ldsaxjhag (SLAP) tear of left shoulder; Impingement syndrome of left shoulder; Biceps tendonitis on left; Arthritis of left acromioclavicular joint Start: 07-28-2023 ambulatory IRINA Silva [facility] Start: 07-28-2023 End: 07-28-2023 Office outpatient visit 15 minutes Irina Richards MD Work Phone: [facility] Comment on above: Tear of left rotator cuff, unspecified tear extent, unspecified whether traumatic (Primary Dx); Superior labrum lyvvrypz-al-fpcnsqhfm (SLAP) tear of left shoulder; Impingement syndrome of left shoulder; Biceps tendonitis on left; Arthritis of left acromioclavicular joint Start: 05-26-2023 ambulatory [facility] Start: 05-26-2023 End: 05-26-2023 Office outpatient visit 25 minutes Daniel Hickman [employer] Work Phone: [facility] Comment on above: Impingement syndrome of left shoulder (Primary Dx); Superior labrum xfwwitut-ww-vetsjsgvy (SLAP) tear of left shoulder; Biceps tendonitis on left; Arthritis of left acromioclavicular joint Start: 02-18-2023 ambulatory [facility] Start: 02-18-2023 End: 02-18-2023 Office outpatient visit 25 minutes Daniel Hickman [employer] Work Phone: [facility] Comment on above: Impingement syndrome of left shoulder (Primary Dx) Start: 01-01-2023 ambulatory YARITZA DOWLING Facility:[facility] Start: 12-30-2022 ambulatory [facility] Start: 12-30-2022 End: 12-30-2022 Office outpatient visit 25 minutes Irina Richards MD Work Phone: [facility] Comment on above: Superior labrum ante mvsm-nj-vhuywhzhy (SLAP) tear of left shoulder (Primary Dx); Biceps tendonitis on left Start: 11-21-2022 End: 11-22-2022 Office outpatient new 30 minutes Irina Richards MD Work Phone: [facility] Comment on above: Superior labrum ante duxs-am-xkisibtgs (SLAP) tear of left shoulder (Primary Dx); Impingement syndrome of left shoulder; Biceps tendonitis on left; Arthritis of left acromioclavicular joint Start: 11-21-2022 ambulatory YARITZA DOWLING [facility] Start: 11-15-2022 End: 11-16-[address] YARITZA DOWLING . Facility: Start: 10-10-2022 ambulatory [facility] Start: 10-04-2022 ambulatory [facility] Start: 10-04-2022 End: 10-04-2022 Subsequent hospital visit by physician Osman Schilling MD Work Phone: [facility] Comment on above: Arrived Start: 09-20-2022 ambulatory [facility] Start: 09-20-2022 End: 09-20-2022 Office outpatient visit 15 minutes Osman Schilling MD Work Phone: [facility] Comment on above: Superior labrum ante ipqz-iu-pepxlisgh (SLAP) tear of left shoulder (Primary Dx); Infraspinatus tendonitis, left; Claustrophobia Start: 06-17-2022 [facility] Start: 06-17-2022 End: 06-17-2022 Office outpatient visit 15 minutes Osman Schilling MD Work Phone: [facility] Comment on above: Infraspinatus tendon itis, left (Primary Dx) Start: [facility] Administration Start: 04-17-2022 End: 04-17-2022 Subsequent hospital visit by physician Osman Schilling MD Work Phone: [facility] Procedure Images Comment on above: Arrived Start: 04-17-2022 End: 04-17-2022 Patient encounter procedure Osman Schilling MD Work Phone: [facility] Orthopedics & Sports Medicine Comment on above: Infraspinatus tendon itis, left (Primary Dx) Start: 03-14-2022 [facility] Start: 03-14-2022 End: 03-14-2022 Office outpatient visit 25 minutes Osman Schilling MD Work Phone: [facility] Orthopedics & Sports Medicine Comment on above: Infraspinatus tendon itis, left (Primary Dx) Start: 02-22-2022 End: 02-22-2022 Subsequent hospital visit by physician Osman Schilling MD Work Phone: [facility] MRI Comment on above: Arrived Start: 02-11-2022 ambulatory YARITZA SHWETA [facility] Start: 02-11-2022 End: 02-11-2022 Subsequent hospital visit by physician Osman Schilling MD Work Phone: [facility] Diagnostic Radiology [facility] Comment on above: Arrived Procedures Date Procedure Procedure Detail Performing Clinician Start: 05-26-2023 Arthrocentesis aspir&/inj major jt/bursa w/o us Daniel Hickman CREW PERSON-SUPERVISOR [employer] Work Phone: Start: 02-18-2023 Arthrocentesis aspir&/inj major jt/bursa w/o us Daniel Hickman CREW PERSON-SUPERVIS[employer] Work Phone: Start: 12-30-2022 Arthrocentesis aspir&/inj major jt/bursa w/o us Irina Richards MD Work Phone: Start: 10-04-2022 Mri any jt upper extremity w/contrast matrl Osman Schilling MD Work Phone: Start: 10-04-2022 Radex shoulder arthrography rs&i Osman Schilling MD Work Phone: Start: 09-20-2022 Arthrocentesis aspir&/inj major jt/bursa w/o us Jose Maher ATC Start: 06-17-2022 Arthrocentesis aspir&/inj major jt/bursa w/o us Jose Maher ATC Start: 04-17-2022 US Unspecified body region Osman Schilling MD Work Phone: Start: 04-17-2022 Njx pltlt plasma w/img harvest/preparation Jose Maher ATC Start: 03-14-2022 Arthrocentesis aspir&/inj major jt/bursa w/o us Jose Maher ATC Start: 02-22-2022 Mri any jt upper extremity w/o contrast matrl Osman Schilling MD Work Phone: Start: 02-11-2022 Radex shoulder complete minimum 2 views Osman Schilling MD Work Phone: History of repair of musculotendinous cuff of shoulder S/P rotator cuff repair Irina Richards MD Work Phone: History of repair of musculotendinous cuff of shoulder S/P rotator cuff repair Daniel Hickman CREW PERSON-SUPERVISOR [employer] Work Phone: Plan of Treatment Date Care Activity Detail Author Start: 11-27-2028 Tetanus vaccination TETANUS [facility] Start: 11-24-2023 End: 11-24-2023 Patient encounter procedure 11/24/2023 1:40 PM EST Office Visit [facility] Orthopedics [address] [place] [address] Daniel Hickman, CREW PERSON-SUPERVISOR [employer] [address] [place] [address] [facility] Start: 10-27-2023 End: 10-27-2023 Patient encounter procedure 10/27/2023 11:00 AM EST Office Visit [facility] [address] [place] [address], [place] [address] Daniel Hickman, CREW PERSON-SUPERVISOR [employer] [address] [place] [address] [facility] Start: 10-09-2023 End: 10-09-2023 Admission to same day surgery center 10/09/2023 10:30 AM EST - 10/09/2023 12:00 PM EST Surgery [facility] Peri [address] [place] [address] Irina Richards MD [address] [place] [address] ARTHROSCOPY SHOULDER W/ ROTATOR CUFF REPAIR [facility] Comment on above: ARTHROSCOPY SHOULDER W/ ROTATOR CUFF REPAIR Start: 10-09-2023 End: 10-09-2023 Arthroscopy shoulder biceps tenodesis [facility] Start: 10-09-2023 End: 10-09-2023 Arthroscopy shoulder distal claviculectomy [facility] Start: 10-09-2023 End: 10-09-2023 Arthroscopy shoulder rotator cuff repair [facility] Start: 10-09-2023 End: 10-09-2023 Arthroscopy shoulder w/coracoacrm ligmnt release [facility] Start: 10-09-2023 Subsequent hospital visit by physician 10/09/2023 10:30 AM EST Hospital Encounter [facility] Periop [address] [place] [address] Irina Richards MD [address] [place] [address] Tear of left rotator cuff, unspecified tear extent, unspecified whether traumatic [facility] Comment on above: Tear of left rotator cuff, unspecified tear extent, unspecified whether traumatic Start: 10-03-2023 End: 10-03-2023 Admission to establishment 10/03/2023 11:00 AM EST Pre-Operative Nurse Assessment [facility] Pre Admission [address] [place] [address] [facility] Pre Admission Start: 09-25-2023 End: 09-25-2023 Patient encounter procedure 09/25/2023 8:00 AM EST Office Visit [facility] [address] [place] [address] Daniel Hickman, CREW PERSON-SUPERVISOR [employer] [address] [place] [address] [facility] Start: 07-28-2023 End: 07-28-2023 Patient encounter procedure 07/28/2023 8:00 AM EDT Office Visit [facility] [address] [place] [address] Irina Richards MD [address] [place] [address] [facility] Orth[facility] Start: 06-20-2023 COVID-19 VACCINE ( season) COVID-19 VACCINE ( season) [facility] Start: 06-20-2023 COVID-19 VACCINE ( season) COVID-19 VACCINE ( season) [facility] Start: 06-20-2023 Influenza vaccination INFLUENZA VACC INE (#1) [facility] Start: 05-26-2023 End: 05-26-2023 Patient encounter procedure 05/26/2023 Office Visit Orthopaedics Daniel Hickman, CREW PERSON-SUPERVISOR [employer] [address] [place] [address] [facility] Start: 03-31-2023 End: 03-31-2023 Patient encounter procedure 03/31/2023 Office Visit Orthopaedics Irina Richards MD [address] [place] [address] [facility] Start: 12-30-2022 End: 12-30-2022 Patient encounter procedure 12/30/2022 Office Visit Orthopaedics Irina Richards MD [address] [place] [address], [place] [address] [facility] Start: 10-10-2022 End: 10-10-2022 Patient encounter procedure 10/10/2022 Office Visit Orthopaedics Osman Schilling MD [address] [place] [address] [place] [address] [facility] Start: 06-20-2022 Influenza vaccination INFLUENZA VACC INE (#1) [facility] Start: 06-17-2022 End: 06-17-2022 Patient encounter procedure 06/17/2022 Office Visit Orthopaedics Osman Schilling MD [address] [place] [address] [place] [address] [facility] Start: 04-17-2022 End: 04-17-2022 Patient encounter procedure 04/17/2022 Office Visit Orthopaedics Osman Schilling MD [address] [place] [address] [place] [address] [facility] Start: 2020 Fasting lipid profile LIPID SCREENIN G [facility] Start: 2020 Lipid panel LIPID SCREENING [facility] Start: 1999 Third diphtheria, tetanus and acellular pertussis (DTaP) vaccination TDAP (ADULT) [facility] Start: 1998 Tetanus vaccination TETANUS [facility] Start: 1995 HIV screening HIV SCREENING DISCUSSION [facility] Start: 1985 COVID-19 VACCINE (#1) COVID-19 VACCI NE (#1) [facility] Start: 1985 COVID-19 VACCINE (1) COVID-19 VACCIN E (1) [facility] Start: 1980 COVID-19 VACCINE (#1) COVID-19 VACCI NE (#1) [facility] Start: 1980 Hepatitis C antibody , confirmatory test HEPATITIS C VIRUS SCREENING [facility] Start: 1980 Hepatitis C screening HEPATITI S C VIRUS SCREENING [facility] MR Shoulder - left W contrast IV MRI SHOULDER LEFT WITH CONTRAST Imaging Routine Superior labrum ilrygukj-pb-qdrkuolqh (SLAP) tear of left shoulder 10/04/2022 10:47 AM EST [facility] Therapeutic px 1/> a reas each 15 min exercises SD THERAPEUTIC EXERCISES, EA 15 MIN SD Charge Routine Infraspinatus tendonitis, left Ordered: 03/14/2022 [facility] Comment on above: Ordered: 03/14/2022 Immunizations Immunization Date Immunization Notes Care Provider Tracy arroyo 07-12-2022 influenza virus vaccine, unspecified formulation Daniel Hickman CREW PERSON-SUPERVISOR [employer] Work Phone: [facility] 07-25-2021 influenza virus vaccine, unspecified formulation Osman Schilling MD Work Phone: [facility] Payers Date Payer Category Payer Unknown PRE PAID ELECTIV E SELF PAY PRE PAID ELECTIVE SELF PAY [id number] 2022-Present [id number] 2021 Private Health Insurance [employer]ECKA MANN [id number] 2021-Present [address] [place] [address] [id number] 1980 Unknown [id number] 2.16.840.1.592500.3.579. 2.983 1980 Unknown [id number] 2.16.840.1.591210.3.579. 2.983 1980 Unknown [id number] 2.16.840.1.751689.3.579. 2.983 1980 Unknown [id number] 2.16.840.1.331892.3.579. 2.983 1980 Unknown [id number] 2.16.840.1.199183.3.579. 2.983 1980 Unknown [id number] 2.16.840.1.161824.3.579. 2.983 1980 Unknown [id number] 2.16.840.1.817426.3.579. 2.983 1980 Unknown [id number] 2.16.840.1.840998.3.579. 2.983 1980 Unknown [id number] 2.16.840.1.340160.3.579. 2.593 1980 Unknown [id number] 2.16.840.1.900357.3.579. 2.983 1980 Unknown [id number] 2.16.840.1.841325.3.579. 2.983 1980 Unknown [id number] 2.16.840.1.396572.3.579. 2.983 1980 Unknown [id number] 2.16.840.1.616969.3.579. 2.983 1980 Unknown [id number] 2.16.840.1.709595.3.579. 2.983 1980 Unknown [id number] 2.16.840.1.788554.3.579. 2.983 1980 Unknown [id number] 2.16.840.1.464402.3.579. 2.983 1980 Unknown [id number] 2.16.840.1.574741.3.579. 2.983 1980 Unknown [id number] 2.16.840.1.237792.3.579. 2.727 1959 Private Health Insurance [id number] Self-pay Social History Date Type Detail Facility Start: 02-11-2022 Tobacco smoking stat [facility] Never smoked tobacco [facility] Start: 02-11-2022 Tobacco use and exposure Smokeless tobacco non-user [facility] Start: 02-11-2022 End: 10-23-2023 Alcohol intake Current drinker of alcohol (finding) [facility] Start: 02-11-2022 End: 10-23-2023 Alcohol intake [facility] Start: 1980 Sex Assigned At Not on file A [facility] Start: 10-10-2022 Alcohol Comment occasionally [facility] Start: 05-26-2023 End: 10-23-2023 Tobacco use panel [facility] Medical Equipment Procedure Code Equipment Code Equipment Origin al Text Equipment Identifier Dates Speedbridge Kit W/Preloaded Fibertape - [id number] Start: 10-09-2023 Clinical Notes 03-14-2022 to 10-23-2023 Daniel Hickman APRN-SUPERVISOR [employer] - 10/23/2023 11:30 AM ESTMasav June RN - 10/09/2023 2:54 PM Shailesh June RN - 10/09/2023 2:47 PM ESTKelli June RN - 10/09/2023 2:47 PM ESTDischarge Instructions Note Date & Type Note Facility 10-23-2023 History of Presen t illness Narrative Orthopedics and Sports Medicine Chief Complaint Patient presents with Post Op Visit 2wk S/p left shoulder arthroscopy, RCR, labral repair, bicep tenodesis. Patient states he's doing well, in PT 2-3x/week. HPI: He presents 2 weeks s/p left shoulder arthroscopy, RCR, labral repair, bicep tenodesis. He states the shoulder is doing well. Currently in therapy which is going well. He has remained in the sling. Vitals: 10/23/23 1118 Weight: 72.6 kg (160 lb) Height: 1.803 m (5' 11 ) Physical Exam: Involved upper extremity: Incisions healing well. No erythema. No drainage. Sutures removed. Steri Strips placed. PROM: FF: 80 Er: 5 Distally neurovascularly intact with 2+ radial pulses and full sensation in R/U/M axillary nerve distribution. Assessment: ICD-10-CM 1. S/P rotator cuff repair Z98.890 2. Status post labral repair of shoulder Z98.890 Plan: At this time, He is getting along well and the pain is decreasing day by day. We went over the procedure with the patient and all questions were answered. He is currently in physical therapy. Remain in sling until next follow up unless showering or in PT. He is to follow up in 4 weeks. He is to call the office if He has any questions or concerns. Voice recognition software was used for this note. I have edited this note but errors may occur documented in this encounter [facility] 10-09-2023 Nurse Note Pt discharged to car in stable condition. Pt has personal belongings and discharge instructions. Care released to family at this time. Pt ambulated to bathroom with standby assist. Pt voided. Pt ambulated back to room. Pt and family member provided with verbal and written discharge instructions. Pt and family verbalize understanding and deny having questions. No further education needed. Patient transferred to [facility] via cart in stable condition. Report given to LETI Silva. Cart left in locked and lowest position with side rails up x2. Snack and call light given to patient. Monitors and alarms on and attached to patient. Patient taken to PACU via cart with this RN and [employer]. Report given to LETI August. Pt remains in stable condition post supraclavicular nerve block. Pt denies numbness around lips, ringing in ears, and metallic taste in mouth. Pt answers questions appropriately. Supraclavicular nerve block completed by Dr. Loredo. Pt denies numbness around lips, ringing in ears, and metallic taste in mouth. Pt answers questions appropriately. Pt remains in stable condition. Pre and post block patient monitor strips on chart. Ultrasound record on chart. All sharps accounted for by [employer]. Supraclavicular nerve block started at this time by Dr. Loredo Pt is lying on back with left shoulder exposed. Pt remains in stable condition. Pt answers questions appropriately. documented in this encounter [facility] 10-09-2023 Nurse Surgical operation note Pt discharged to car in stable condition. Pt has personal belongings and discharge instructions. Care released to family at this time. [facility] 10-09-2023 Nurse Surgical operation note Pt ambulated to bathroom with standby assist. Pt voided. Pt ambulated back to room. [facility] 10-09-2023 Nurse Surgical operation note Pt and family member provided with verbal and written discharge instructions. Pt and family verbalize understanding and deny having questions. No further education needed. [facility] 10-09-2023 Nurse Surgical operation note Patient transferred to [facility] via cart in stable condition. Report given to LETI Silva. Cart left in locked and lowest position with side rails up x2. Snack and call light given to patient. Monitors and alarms on and attached to patient. [facility] 10-09-2023 Nurse Surgical operation note Patient taken to PACU via cart with this RN and [employer]. Report given to LETI August. [facility] 10-09-2023 Hospital Discharg e instructions Kelli June RN - 10/09/2023 1:[address] Richards's discharge instructions in the green folder provided for your detailed postoperative instructions. Patient Instructions for Nerve Block Catheter Local Anesthetic Pain Infusion Pump You are receiving local anesthetic through a small catheter connected to a pain pump. The catheter is located near the nerves that go into your arm, shoulder, or leg. This medication will help relieve your pain. The catheter has been placed by your anesthesia doctor (anesthesiologist) or nurse credit control administrator ([employer]). This discharge instruction sheet was designed to help answer common questions. About This Method of Pain Control The local anesthetic medicine may not take away all your pain. You may need some of the pain pills prescribed by your doctor while you have the catheter in place. Communication is essential to making this therapy work. While you have your catheter in place, you will be contacted by a member of our staff to make sure you continue to do well after you leave the hospital. Usually about 10-15 hours after surgery, the intense numbness that you felt with the initial nerve block will wear off and you may experience some pain. If this occurs, take your pain medicines as prescribed. After the intense numbness wears off and depending on where the catheter is placed, your fingers or toes may feel fat, numb, or like pins and needles. The catheter is usually kept in place for 2-4 days. On occasion, the catheter may fall out or be pulled out by accident. If this occurs, the catheter cannot be reinserted. Your pain pills will provide some degree of relief. If pain worsens or is unrelieved with pain pills, check to make sure the clamp on the tubing is unclamped. To remove the catheter, you will first remove the dressings and tape. Next, you will gently pull out the catheter. Discard both the catheter and the pump. If the catheter does not come out easily, call the hospital number provided and you will be instructed how to proceed. Specific Instructions You should not drive while you are receiving this medication. You must have someone with you for the first 24 hours after the pump was started. This is the time you will need the most help getting around. Do not get the catheter or pump wet. Sponge baths generally work best. FLUID MAY LEAK AROUND THE CATHETER. This is normal and doesn t mean it isn t working. You may place a dressing at the catheter site, on top of the clear sterile dressing. The fluid may be clear or pink in color. If your catheter is going to the nerves of your leg, you must use a walker or crutches to get around while you are receiving this medication because you will NOT be able to support your weight without one of these devices. REMEMBER: Depending on where the catheter is placed, your arm or leg may not have full feeling and will need protection from injury. Special Precautions It is unlikely that you will receive too much medicine from the pump. However, if you were to get too much medication it might cause ringing in your ears, blurred vision, mouth or tongue numbness, or a metallic taste. You might feel nervous or confused. If you experience any of these symptoms, clamp the tubing and call the number provided below. As a patient you may be concerned about receiving too much local anesthetic medication; however, the pump has been preset specifically for you by the anesthesia doctor. Important Phone Numbers If you have questions or concerns call the 24 Hour Product Support Hotline at . If you still have concerns call the hospital where your procedure was done and ask for the House Charge Nurse/PCC ([facility] [phone] .) Ask them to call the anesthesiologist or [employer] staff internist office based only. Your call will be returned. Anesthesia Precautions & Expectations: After anesthesia, rest for [address], drink alcoholic beverages or make any important decisions during this time. General anesthesia may cause a sore throat, jaw discomfort or muscle aches. These symptoms can last for one or two days. documented in this encounter [facility] 10-09-2023 Surgery Postoperative evaluation and management note Lazaro Casanova ([id number]) PRE OPERATIVE DIAGNOSIS Tear of left rotator cuff, unspecified tear extent, unspecified whether traumatic [M75.102] Superior labrum eiucnoto-ux-pvaetyoze (SLAP) tear of left shoulder [S43.432A] Impingement syndrome of left shoulder [M75.42] Biceps tendonitis, left [M75.22] Arthritis of left acromioclavicular joint [M19.012] POST OPERATIVE DIAGNOSIS Post-Op Diagnosis Codes: * Tear of left rotator cuff, unspecified tear extent, unspecified whether traumatic [M75.102] * Superior labrum jeqqtgpp-kn-wmttjyaey (SLAP) tear of left shoulder [S43.432A] * Impingement syndrome of left shoulder [M75.42] * Biceps tendonitis, left [M75.22] * Arthritis of left acromioclavicular joint [M19.012] PROCEDURE PERFORMED Left shoulder arthroscopy, RCR, labral repair, bicep tenodesis, AC resection, SAD, and extensive debridement PRIMARY CLOSURE Yes INTRAOPERATIVE FINDINGS No significant abnormalities SURGEON Surgeon(s) and Role: * Irina Richards MD - Primary ANESTHESIOLOGIST Anesthesiologist: Ilir Loredo DO SURGICAL STAFF Technician Assistant: Mague Begum RN; Gina Bañuelos RN Nurse Practitioner: ARMAND Conley Scrub Person: Malachi Gilbert Web Development Consultant: Mu Little ATC COMPLICATIONS None ESTIMATED BLOOD LOSS Minimal SPECIMENS No specimen sent * No specimens in log * ARMAND Conley October 09, 2023 1:14 PM [facility] 10-09-2023 Miscellaneous Notes Formattin g of this note might be different from the original. Lazaro Casanova ([id number]) PRE OPERATIVE DIAGNOSIS Tear of left rotator cuff, unspecified tear extent, unspecified whether traumatic [M75.102] Superior labrum suehhgxb-sp-hgsrdixhp (SLAP) tear of left shoulder [S43.432A] Impingement syndrome of left shoulder [M75.42] Biceps tendonitis, left [M75.22] Arthritis of left acromioclavicular joint [M19.012] POST OPERATIVE DIAGNOSIS Post-Op Diagnosis Codes: * Tear of left rotator cuff, unspecified tear extent, unspecified whether traumatic [M75.102] * Superior labrum dowjgbhc-ue-rgdhxfwce (SLAP) tear of left shoulder [S43.432A] * Impingement syndrome of left shoulder [M75.42] * Biceps tendonitis, left [M75.22] * Arthritis of left acromioclavicular joint [M19.012] PROCEDURE PERFORMED Left shoulder arthroscopy, RCR, labral repair, bicep tenodesis, AC resection, SAD, and extensive debridement PRIMARY CLOSURE Yes INTRAOPERATIVE FINDINGS No significant abnormalities SURGEON Surgeon(s) and Role: * Irina Richards MD - Primary ANESTHESIOLOGIST Anesthesiologist: Ilir Loredo DO SURGICAL STAFF Technician Assistant: Mague Begum RN; Gina Bañuelos RN Nurse Practitioner: ARMAND Conley Scrub Person: Malachi Gilbert Web Development Consultant: Mu Little ATC COMPLICATIONS None ESTIMATED BLOOD LOSS Minimal SPECIMENS No specimen sent * No specimens in log * ARMAND Conley October 09, 2023 1:14 PM Time In: 924 Time Out: 954 Subjective: Pt presents today for pre-operative education for a left shoulder scope to be performed by Dr. Richards on 10/09/23. Pt lives alone in a 2 story home with 0 JAMILA. Pt is independent at baseline for mobility. Pt is right handed. Pre-Surgical Questionnaire: Is your rotator cuff tear caused from an injury? yes If yes, explain when and describe the injury. Indoor November 2020 Is your rotator cuff tear insidious (gradually occurred over time)? How long have you had shoulder pain? Since 11/2020 Have you completed therapy for shoulder pain? yes If yes, how many weeks? 1 Have you received injections for shoulder pain? yes If yes, how many? 8 Do you have a prior history of shoulder surgery? no If yes, on which shoulder, and what type of surgery was performed? Do you use tobacco? no If yes, please answer the following questions: How long have you used tobacco products? What type do you use? (Cigarettes, cigars, chewing tobacco, vape, etc) How much / how often? Do you have any of the following: Diabetes no High Cholesterol no Osteoporosis no SPADI score: not completed Surgical shoulder AROM (standing) Flexion: 120 Abduction: 90 Internal Rotation: to T8 External Rotation: 60 Surgical shoulder PROM (semi-reclined) Flexion: 130 Abduction: 95 Internal Rotation: at 90 degrees abduction 70 External Rotation: at 90 degrees abduction 30 Adhesive Capsulitis Present? no Drop Arm Test (positive or negative): negative Patient Education: Pt educated on surgical procedures to be performed, and on post-op precautions. Pt educated on how to properly don sling on and off following precautions, and how to dress UE. Pt educated on pain and edema control via icing and positioning. Pt was given a written HEP and each exercise was explained and demonstrated. Pt instructed to practice exercises pre-operatively. Pt educated on starting OP therapy following surgery. Pt plans to go to OP therapy at [facility]. Pt educated on safety with mobility post-op. Pt with no further questions at this time, and reports understanding of all information presented. Goals for pre-operative OT visit: 1. Pt will report understanding of all post-op precautions. 2. Pt will demonstrate understanding of how to perform self-care following post-op precautions. 3. Pt will demonstrate understanding of post-op HEP. All goals met at this time. documented in this encounter [facility] 10-09-2023 Nurse Surgical operation note Pt remains in stable condition post supraclavicular nerve block. Pt denies numbness around lips, ringing in ears, and metallic taste in mouth. Pt answers questions appropriately. [facility] 10-09-2023 Nurse Surgical operation note Supraclavicular nerve block completed by Dr. Loredo. Pt denies numbness around lips, ringing in ears, and metallic taste in mouth. Pt answers questions appropriately. Pt remains in stable condition. Pre and post block patient monitor strips on chart. Ultrasound record on chart. All sharps accounted for by [employer]. [facility] 10-09-2023 Nurse Surgical operation note Supraclavicular nerve block started at this time by Dr. Loredo Pt is lying on back with left shoulder exposed. Pt remains in stable condition. Pt answers questions appropriately. [facility] 10-09-2023 Progress note Formatting of t his note might be different from the original. Time In: 924 Time Out: 954 Subjective: Pt presents today for pre-operative education for a left shoulder scope to be performed by Dr. Richards on 10/09/23. Pt lives alone in a 2 story home with 0 JAMILA. Pt is independent at baseline for mobility. Pt is right handed. Pre-Surgical Questionnaire: Is your rotator cuff tear caused from an injury? yes If yes, explain when and describe the injury. [facility] Is your rotator cuff tear insidious (gradually occurred over time)? How long have you had shoulder pain? Since 11/2020 Have you completed therapy for shoulder pain? yes If yes, how many weeks? 1 Have you received injections for shoulder pain? yes If yes, how many? 8 Do you have a prior history of shoulder surgery? no If yes, on which shoulder, and what type of surgery was performed? Do you use tobacco? no If yes, please answer the following questions: How long have you used tobacco products? What type do you use? (Cigarettes, cigars, chewing tobacco, vape, etc) How much / how often? Do you have any of the following: Diabetes no High Cholesterol no Osteoporosis no SPADI score: not completed Surgical shoulder AROM (standing) Flexion: 120 Abduction: 90 Internal Rotation: to T8 External Rotation: 60 Surgical shoulder PROM (semi-reclined) Flexion: 130 Abduction: 95 Internal Rotation: at 90 degrees abduction 70 External Rotation: at 90 degrees abduction 30 Adhesive Capsulitis Present? no Drop Arm Test (positive or negative): negative Patient Education: Pt educated on surgical procedures to be performed, and on post-op precautions. Pt educated on how to properly don sling on and off following precautions, and how to dress UE. Pt educated on pain and edema control via icing and positioning. Pt was given a written HEP and each exercise was explained and demonstrated. Pt instructed to practice exercises pre-operatively. Pt educated on starting OP therapy following surgery. Pt plans to go to OP therapy at [facility]. Pt educated on safety with mobility post-op. Pt with no further questions at this time, and reports understanding of all information presented. Goals for pre-operative OT visit: 1. Pt will report understanding of all post-op precautions. 2. Pt will demonstrate understanding of how to perform self-care following post-op precautions. 3. Pt will demonstrate understanding of post-op HEP. All goals met at this time. [facility] 09-30-2023 History of Presen t illness Narrative Chief Complaint Patient presents with Shoulder Pain Left shoulder - Patient states that the shoulder pain has been getting pretty severe and would like to proceed with surgical intervention. HPI: Patient presents in follow-up for left shoulder pain. Received a subacromial injection on 05/26/2023 performed by Daniel Hickman CNP. Patient states that his symptoms have become pretty severe and he is ready to proceed with surgery at this time. Patient is unable to complete their activities of daily living due to the severity of pain and loss of range of motion. They are unable to enjoy activities that he once could due to the loss of range of motion and severity of pain. They are here today to discuss surgical options as they are no longer able to function on a daily basis as they once could. To recap previous visit: Patient presents in follow-up for left shoulder pain. Received a subacromial injection on 05/26/2023. Patient states that the injection only helped with his pain for approximately 6 weeks. Patient would like to discuss further options. Patient states that he has had ongoing pain as well as instability in the shoulder. He states he is unable to sleep well at night due to the severity of pain. Patient is unable to complete their activities of daily living due to the severity of pain and loss of range of motion. They are unable to enjoy activities that he once could due to the loss of range of motion and severity of pain. They are here today to discuss surgical options as they are no longer able to function on a daily basis as they once could. No Known Allergies History reviewed. No pertinent family history. Social History Socioeconomic History Marital status: Single Tobacco Use Smoking status: Never Smokeless tobacco: Never Substance and Sexual Activity Alcohol use: Yes Alcohol/week: 1.0 standard drink of alcohol Types: 1 Standard drinks or equivalent per week Comment: occasionally Drug use: Not Currently No past medical history on file. Past Surgical History: Procedure Laterality Date TONSILLECTOMY Bilateral 1992 Vitals: 09/30/23 1108 Temp: 98.3 degrees F (36.8 degrees C) TempSrc: Temporal Weight: 73.5 kg (162 lb) Height: 1.829 m (6') Physical Exam: Exam Findings Details Constitutional * Level of distress - no acute distress. Nourishment - well nourished. Overall appearance - age appropriate. Head/Face Normal Facial features - Normal. Skull - Normal. Nasopharynx Comments Noraml cephalic, atraumatic Respiratory Normal Auscultation - Normal. Cough - Absent. Effort - Normal. Cardiovascular Normal Heart rate - Regular rate. Rhythm - Regular. Heart sounds - Normal S1, Normal S2. Extra sounds - None. Murmurs - None. Abdomen Normal Inspection - Normal. No abdominal tenderness. Abdomen * Auscultation - normal bowel sounds. Anterior palpation - no guarding. Skin * Inspection - General inspection: no rashes. Detailed inspection - Visual lesions: none. Rash - Description: none. Back/Spine Normal Lateral - No Kyphosis. Flexion - Normal. Extension - Normal. Back/Spine Comments negative kidney percussion Neurological Normal Level of consciousness - Normal. Orientation - Normal. Memory - Normal. Balance & gait - Normal. Hand dominance - Right-handed. Psychiatric Normal Orientation - Oriented to time, place, person & situation. left Shoulder Exam Inspection: No swelling. No atrophy. No deformity. ROM: FF 170/180, Abd: 170/180, IR L4, ER 80/80. No scapular dyskinesia. Labral Click present Strength: Supraspinatus 5-/5 with pain, ER 5/5, Internal Rotation 5/5 Impingement signs: Hawkin's test:Positive, Neer's Sign:Positive Apprehension: Negative Leflore's test: Exquisitely Positive Biceps tenderness: Positive Speed's test: Positive,Yergason's test:Not Tested/Assessed AC tenderness: Positive Crossbody Adduction: Positive Distally neurovascular intact with 2+ radial pulses and full sensation in R/U/M/axillary nerve distribution. Assessment: ICD-10-CM 1. Tear of left rotator cuff, unspecified tear extent, unspecified whether traumatic M75.102 2. Superior labrum zpiiskzn-yx-aqetwilss (SLAP) tear of left shoulder S43.432A 3. Impingement syndrome of left shoulder M75.42 4. Biceps tendonitis on left M75.22 5. Arthritis of left acromioclavicular joint M19.012 Plan: At this time, we have again reviewed the past medical notes pertaining to his chief complaint today, as well as his MRI which shows mild tendinosis without evidence of a full thickness rotator cuff tear, biceps tendinitis, a labral tear from the biceps anchor posteriorly to the 9 o'clock position, AC joint arthritis, signs of shoulder impingement, as well as low to intermediate grade glenohumeral arthritis. He shows signs of this on exam as well. We have discussed options today with the patient from conservative to surgical. As his symptoms have continued to worsen we are offering surgery. We are offering him a left shoulder arthroscopy, possible rotator cuff repair, possible SLAP repair, biceps tenodesis, acromioclavicular joint resection, subacromial decompression, and other interventions as needed. He is elected to proceed with this at this time. He is scheduled for this in the near future. As he is an overall healthy individual we will clear him for surgery today. He will follow up in office within 30 days of surgery if needed. Call the office with any questions or concerns in the meantime. Consent: Both Surgical and Non-surgical methods of treatment were discussed with the patient and they have elected to proceed with surgery. The risks and benefits were thoroughly explained including but not limited to: infection, bleeding, neurovascular damage, blood clots which may lead to pulmonary embolism, the need for further surgery stroke, and . It was also explained that the goal of surgery is to correct structural abnormalities that may be resulting in their pain but may not get rid of all the pain they are experiencing. At this time, the patients quality of life has decreased with the pain they are experiencing and they cannot perform daily functions. The patient voiced full understanding and wishes to proceed with surgery. They will be scheduled in the near future. Left shoulder arthroscopy, possible rotator cuff repair, possible SLAP repair, biceps tenodesis, acromioclavicular joint resection, subacromial decompression, and other interventions as needed Review February 22 and October 04 MRI day of surgery Chief Complaint Patient presents with Shoulder Pain Left shoulder - Patient states that the shoulder pain has been getting pretty severe and would like to proceed with surgical intervention. HPI: Patient presents in follow-up for left shoulder pain. Received a subacromial injection on 05/26/2023 performed by Daniel Hickman CNP. Patient states that his symptoms have become pretty severe and he is ready to proceed with surgery at this time. Patient is unable to complete their activities of daily living due to the severity of pain and loss of range of motion. They are unable to enjoy activities that he once could due to the loss of range of motion and severity of pain. They are here today to discuss surgical options as they are no longer able to function on a daily basis as they once could. To recap previous visit: Patient presents in follow-up for left shoulder pain. Received a subacromial injection on 05/26/2023. Patient states that the injection only helped with his pain for approximately 6 weeks. Patient would like to discuss further options. Patient states that he has had ongoing pain as well as instability in the shoulder. He states he is unable to sleep well at night due to the severity of pain. Patient is unable to complete their activities of daily living due to the severity of pain and loss of range of motion. They are unable to enjoy activities that he once could due to the loss of range of motion and severity of pain. They are here today to discuss surgical options as they are no longer able to function on a daily basis as they once could. No Known Allergies History reviewed. No pertinent family history. Social History Socioeconomic History Marital status: Single Tobacco Use Smoking status: Never Smokeless tobacco: Never Substance and Sexual Activity Alcohol use: Yes Alcohol/week: 1.0 standard drink of alcohol Types: 1 Standard drinks or equivalent per week Comment: occasionally Drug use: Not Currently No past medical history on file. Past Surgical History: Procedure Laterality Date TONSILLECTOMY Bilateral 1992 Vitals: 09/30/23 1108 Temp: 98.3 degrees F (36.8 degrees C) TempSrc: Temporal Weight: 73.5 kg (162 lb) Height: 1.829 m (6') Physical Exam: Exam Findings Details Constitutional * Level of distress - no acute distress. Nourishment - well nourished. Overall appearance - age appropriate. Head/Face Normal Facial features - Normal. Skull - Normal. Nasopharynx Comments Noraml cephalic, atraumatic Respiratory Normal Auscultation - Normal. Cough - Absent. Effort - Normal. Cardiovascular Normal Heart rate - Regular rate. Rhythm - Regular. Heart sounds - Normal S1, Normal S2. Extra sounds - None. Murmurs - None. Abdomen Normal Inspection - Normal. No abdominal tenderness. Abdomen * Auscultation - normal bowel sounds. Anterior palpation - no guarding. Skin * Inspection - General inspection: no rashes. Detailed inspection - Visual lesions: none. Rash - Description: none. Back/Spine Normal Lateral - No Kyphosis. Flexion - Normal. Extension - Normal. Back/Spine Comments negative kidney percussion Neurological Normal Level of consciousness - Normal. Orientation - Normal. Memory - Normal. Balance & gait - Normal. Hand dominance - Right-handed. Psychiatric Normal Orientation - Oriented to time, place, person & situation. left Shoulder Exam Inspection: No swelling. No atrophy. No deformity. ROM: FF 170/180, Abd: 170/180, IR L4, ER 80/80. No scapular dyskinesia. Labral Click present Strength: Supraspinatus 5-/5 with pain, ER 5/5, Internal Rotation 5/5 Impingement signs: Hawkin's test:Positive, Neer's Sign:Positive Apprehension: Negative Leflore's test: Exquisitely Positive Biceps tenderness: Positive Speed's test: Positive,Yergason's test:Not Tested/Assessed AC tenderness: Positive Crossbody Adduction: Positive Distally neurovascular intact with 2+ radial pulses and full sensation in R/U/M/axillary nerve distribution. Assessment: ICD-10-CM 1. Tear of left rotator cuff, unspecified tear extent, unspecified whether traumatic M75.102 2. Superior labrum senshyzb-xh-xgsdvjjaa (SLAP) tear of left shoulder S43.432A 3. Impingement syndrome of left shoulder M75.42 4. Biceps tendonitis on left M75.22 5. Arthritis of left acromioclavicular joint M19.012 Plan: At this time, we have again reviewed the past medical notes pertaining to his chief complaint today, as well as his MRI which shows mild tendinosis without evidence of a full thickness rotator cuff tear, biceps tendinitis, a labral tear from the biceps anchor posteriorly to the 9 o'clock position, AC joint arthritis, signs of shoulder impingement, as well as low to intermediate grade glenohumeral arthritis. He shows signs of this on exam as well. We have discussed options today with the patient from conservative to surgical. As his symptoms have continued to worsen we are offering surgery. We are offering him a left shoulder arthroscopy, possible rotator cuff repair, possible SLAP repair, biceps tenodesis, acromioclavicular joint resection, subacromial decompression, and other interventions as needed. He is elected to proceed with this at this time. He is scheduled for this in the near future. As he is an overall healthy individual we will clear him for surgery today. He will follow up in office within 30 days of surgery if needed. Call the office with any questions or concerns in the meantime. Consent: Both Surgical and Non-surgical methods of treatment were discussed with the patient and they have elected to proceed with surgery. The risks and benefits were thoroughly explained including but not limited to: infection, bleeding, neurovascular damage, blood clots which may lead to pulmonary embolism, the need for further surgery stroke, and . It was also explained that the goal of surgery is to correct structural abnormalities that may be resulting in their pain but may not get rid of all the pain they are experiencing. At this time, the patients quality of life has decreased with the pain they are experiencing and they cannot perform daily functions. The patient voiced full understanding and wishes to proceed with surgery. They will be scheduled in the near future. Left shoulder arthroscopy, possible rotator cuff repair, possible SLAP repair, biceps tenodesis, acromioclavicular joint resection, subacromial decompression, and other interventions as needed Review February 22 and October 04 MRI day of surgery YOAV Smith was acting as a scribe today for this note. I have performed all essential components of the history, and physical exam. I have confirmed the diagnosis and developed a plan of care at this visit. I have reviewed the note following the visit and have add edits as appropriate to my evaluation and plan of care. Irina Richards MD documented in this encounter [facility] 07-28-2023 History of Presen t illness Narrative Chief Complaint Patient presents with Shoulder Pain Left shoulder - Received SA injection on 05/26/23. Patient states that the injection only helped with the pain for around 6 weeks. Patient would like to discuss options. HPI: Patient presents in follow-up for left shoulder pain. Received a subacromial injection on 05/26/2023. Patient states that the injection only helped with his pain for approximately 6 weeks. Patient would like to discuss further options. Patient states that he has had ongoing pain as well as instability in the shoulder. He states he is unable to sleep well at night due to the severity of pain. Patient is unable to complete their activities of daily living due to the severity of pain and loss of range of motion. They are unable to enjoy activities that he once could due to the loss of range of motion and severity of pain. They are here today to discuss surgical options as they are no longer able to function on a daily basis as they once could. To recap previous visit: He presents for left shoulder pain follow up. He received a left subacromial injection on 02/18/23. He states the injection provided great relief until approximately 2 weeks ago. His pain has returned and is starting to interfere with daily activities and has been progressively worsening. As his pain has returned, he would like to have a repeat injection today. No Known Allergies History reviewed. No pertinent family history. Social History Socioeconomic History Marital status: Single Tobacco Use Smoking status: Never Smokeless tobacco: Never Substance and Sexual Activity Alcohol use: Yes Alcohol/week: 1.0 standard drink of alcohol Types: 1 Standard drinks or equivalent per week Comment: occasionally Drug use: Not Currently No past medical history on file. Past Surgical History: Procedure Laterality Date TONSILLECTOMY Bilateral 1992 Vitals: 07/28/23 0817 Temp: 98 degrees F (36.7 degrees C) TempSrc: Temporal Weight: 73.5 kg (162 lb) Height: 1.829 m (6') Physical Exam: left Shoulder Exam Inspection: No swelling. No atrophy. No deformity. ROM: FF 170/180, Abd: 170/180, IR L4, ER 80/80. No scapular dyskinesia. Labral Click present Strength: Supraspinatus 5-/5 with pain, ER 5/5, Internal Rotation 5/5 Impingement signs: Hawkin's test:Positive, Neer's Sign:Positive Apprehension: Negative Leflore's test: Exquisitely Positive Biceps tenderness: Positive Speed's test: Positive,Yergason's test:Not Tested/Assessed AC tenderness: Positive Crossbody Adduction: Positive Distally neurovascular intact with 2+ radial pulses and full sensation in R/U/M/axillary nerve distribution. Assessment: ICD-10-CM 1. Tear of left rotator cuff, unspecified tear extent, unspecified whether traumatic M75.102 2. Superior labrum abucbpra-pk-xcygphzyk (SLAP) tear of left shoulder S43.432A 3. Impingement syndrome of left shoulder M75.42 4. Biceps tendonitis on left M75.22 5. Arthritis of left acromioclavicular joint M19.012 Plan: At this time, we have again reviewed the past medical notes pertaining to his chief complaint today, as well as his MRI which shows mild tendinosis without evidence of a full thickness rotator cuff tear, biceps tendinitis, a labral tear from the biceps anchor posteriorly to the 9 o'clock position, AC joint arthritis, signs of shoulder impingement, as well as low to intermediate grade glenohumeral arthritis. He shows signs of this on exam as well. We have discussed options today with the patient from conservative to surgical. At this time he is electing to hold off from surgery and a repeat injection at this time. He will follow up with us in September as scheduled for repeat evaluation of the shoulder. Call with any questions or concerns in the meantime. Left shoulder arthroscopy, possible rotator cuff repair, possible SLAP repair, biceps tenodesis, acromioclavicular joint resection, subacromial decompression, and other interventions as needed Review February 22 and October 04 MRI day of surgery Chief Complaint Patient presents with Shoulder Pain Left shoulder - Received SA injection on 05/26/23. Patient states that the injection only helped with the pain for around 6 weeks. Patient would like to discuss options. HPI: Patient presents in follow-up for left shoulder pain. Received a subacromial injection on 05/26/2023. Patient states that the injection only helped with his pain for approximately 6 weeks. Patient would like to discuss further options. Patient states that he has had ongoing pain as well as instability in the shoulder. He states he is unable to sleep well at night due to the severity of pain. Patient is unable to complete their activities of daily living due to the severity of pain and loss of range of motion. They are unable to enjoy activities that he once could due to the loss of range of motion and severity of pain. They are here today to discuss surgical options as they are no longer able to function on a daily basis as they once could. To recap previous visit: He presents for left shoulder pain follow up. He received a left subacromial injection on 02/18/23. He states the injection provided great relief until approximately 2 weeks ago. His pain has returned and is starting to interfere with daily activities and has been progressively worsening. As his pain has returned, he would like to have a repeat injection today. No Known Allergies History reviewed. No pertinent family history. Social History Socioeconomic History Marital status: Single Tobacco Use Smoking status: Never Smokeless tobacco: Never Substance and Sexual Activity Alcohol use: Yes Alcohol/week: 1.0 standard drink of alcohol Types: 1 Standard drinks or equivalent per week Comment: occasionally Drug use: Not Currently No past medical history on file. Past Surgical History: Procedure Laterality Date TONSILLECTOMY Bilateral 1992 Vitals: 07/28/23 0817 Temp: 98 degrees F (36.7 degrees C) TempSrc: Temporal Weight: 73.5 kg (162 lb) Height: 1.829 m (6') Physical Exam: left Shoulder Exam Inspection: No swelling. No atrophy. No deformity. ROM: FF 170/180, Abd: 170/180, IR L4, ER 80/80. No scapular dyskinesia. Labral Click present Strength: Supraspinatus 5-/5 with pain, ER 5/5, Internal Rotation 5/5 Impingement signs: Hawkin's test:Positive, Neer's Sign:Positive Apprehension: Negative Leflore's test: Exquisitely Positive Biceps tenderness: Positive Speed's test: Positive,Yergason's test:Not Tested/Assessed AC tenderness: Positive Crossbody Adduction: Positive Distally neurovascular intact with 2+ radial pulses and full sensation in R/U/M/axillary nerve distribution. Assessment: ICD-10-CM 1. Tear of left rotator cuff, unspecified tear extent, unspecified whether traumatic M75.102 2. Superior labrum bbkwgbje-cy-yelimwztk (SLAP) tear of left shoulder S43.432A 3. Impingement syndrome of left shoulder M75.42 4. Biceps tendonitis on left M75.22 5. Arthritis of left acromioclavicular joint M19.012 Plan: At this time, we have again reviewed the past medical notes pertaining to his chief complaint today, as well as his MRI which shows mild tendinosis without evidence of a full thickness rotator cuff tear, biceps tendinitis, a labral tear from the biceps anchor posteriorly to the 9 o'clock position, AC joint arthritis, signs of shoulder impingement, as well as low to intermediate grade glenohumeral arthritis. He shows signs of this on exam as well. We have discussed options today with the patient from conservative to surgical. At this time he is electing to hold off from surgery and a repeat injection at this time. He will follow up with us in September as scheduled for repeat evaluation of the shoulder. Call with any questions or concerns in the meantime. Left shoulder arthroscopy, possible rotator cuff repair, possible SLAP repair, biceps tenodesis, acromioclavicular joint resection, subacromial decompression, and other interventions as needed Review February 22 and October 04 MRI day of surgery YOAV Smith was acting as a scribe today for this note. I have performed all essential components of the history, and physical exam. I have confirmed the diagnosis and developed a plan of care at this visit. I have reviewed the note following the visit and have add edits as appropriate to my evaluation and plan of care. Irina Richards MD documented in this encounter [facility] 05-26-2023 History of Presen t illness Narrative Chief Complaint Patient presents with Shoulder Pain Left shoulder - Received left SA injection on 02/18/23. Patient states that the injection helped with the pain until 2 weeks ago when the pain returned. Patient is requesting a repeat injection today. HPI: He presents for left shoulder pain follow up. He received a left subacromial injection on 02/18/23. He states the injection provided great relief until approximately 2 weeks ago. His pain has returned and is starting to interfere with daily activities and has been progressively worsening. As his pain has returned, he would like to have a repeat injection today. To recap previous visit: he presents for left shoulder pain fall. He received a left linear injection on 12/30/22. He states that he didn't get much relief from the injection. Pain is along the lateral aspect of the shoulder. Pain worsens with range of motion at shoulder height or above. Pain interferes with daily activities. He would like to try his previous injection that he received from Dr. Schilling in the past. Vitals: 05/26/23 0804 Temp: 97.8 degrees F (36.6 degrees C) TempSrc: Temporal Weight: 73.5 kg (162 lb) Height: 1.829 m (6') Physical Exam: left Shoulder Exam Inspection: No swelling. No atrophy. No deformity. ROM: FF 180/180, Abd: 180/180, IR L4, ER 80/80. No scapular dyskinesia. Labral Click present Strength: Supraspinatus 5-/5, ER 5/5, Internal Rotation 5/5 Impingement signs: Hawkin's test:Positive, Neer's Sign:Positive Apprehension: Negative Leflore's test: Positive Biceps tenderness: Negative Speed's test: Negative,Yergason's test:Not Tested/Assessed AC tenderness: Negative Crossbody Adduction: Negative Distally neurovascular intact with 2+ radial pulses and full sensation in R/U/M/axillary nerve distribution. Assessment: ICD-10-CM 1. Impingement syndrome of left shoulder M75.42 2. Superior labrum ydscukxl-wk-wnossznlo (SLAP) tear of left shoulder S43.432A 3. Biceps tendonitis on left M75.22 4. Arthritis of left acromioclavicular joint M19.012 Plan: At this time, we have reviewed the past medical notes pertaining to his chief complaint today, as well as his MRI which shows mild rotator cuff tendinosis without evidence of a tear, biceps tendinitis, a labral tear from the biceps anchor posteriorly to the 9 o'clock position, AC joint arthritis, signs of shoulder impingement, as well as low to intermediate grade glenohumeral arthritis. He shows signs of this on exam as well. We have discussed options today with the patient from conservative to surgical. He has failed a glenohumeral injection. Wewill proceed with a repeat left subacromial injection today as he previously received good relief. He will follow up with Dr. Richards in 3-4 months for repeat evaluation. Call with any questions or concerns in the meantime. He will follow up in [address] Richrads to further discuss surgical intervention. Associated Order(s): LARGE JOINT/BURSA INJECTION AND/OR ASPIRATION: L subacromial bursa Post-Procedure Diagnose(s): Impingement syndrome of left shoulder LARGE JOINT/BURSA INJECTION AND/OR ASPIRATION: L subacromial bursa Date/Time: 05/26/2023 8:00 AM Performed by: ARMAND Conley Authorized by: ARMAND Conley Supporting Documentation Indications: pain Procedure Details: Location: shoulder - L subacromial bursa Local Anesthetic: ethyl chloride (cold spray) Needle size: 22 G Approach: posterior Medication Verification: I have personally verified and performed the final check of the medication(s) used in this procedure prior to administration. The following items were included during the verification process for medication(s) administered: drug name, strength, volume, expiration, physical integrity and appearance of the medication(s). Medications administered: 2 mL bupivacaine 0.5 %; 4 mL lidocaine 10 mg/mL; 40 mg methylPREDNISolone acetate 40 MG/ML Patient tolerance: patient tolerated the procedure well with no immediate complications Consent: Consent was obtained prior to the procedure after discussion of the risks, benefits and alternatives, and expected outcomes were discussed with the patient. The possibilities of reaction to medication, bleeding, infection, the need for additional procedures, failure to diagnosis a condition, and creating a complication requiring operation were discussed with the patient. The patient concurred with the proposed plan, giving consent. Preparation: Patient was prepped in the usual sterile fashion. The patient was prepped with alcohol. documented in this encounter [facility] 02-18-2023 History of Presen t illness Narrative Chief Complaint Patient presents with Shoulder Pain Left shoulder pain, pt requesting SA injection GH received on 12-30-22. Pt states that he didn't get much if any relief and would like to try previous injection. HPI: he presents for left shoulder pain fall. He received a left linear injection on 12/30/22. He states that he didn't get much relief from the injection. Pain is along the lateral aspect of the shoulder. Pain worsens with range of motion at shoulder height or above. Pain interferes with daily activities. He would like to try his previous injection that he received from Dr. Schilling in the past. To recap previous visit: The patient is a pleasant 42 y.o. year old male with a complaint of left shoulder pain. MRI arthrogram completed on 10/04/2022. Patient states that he is at an indoor skydiving facility and grabbed a net while flipping over and injured the left shoulder. Patient states that he has had pain in the shoulder since that time on and off depending on his level of activity. Received a subacromial injection on 09/20/2022 which she states helps with the shoulder pain for a significant amount of time following. Patient states the pain is felt along the lateral aspect of the arm and is deep within the shoulder. He is here today to discuss options. Vitals: 02/18/23 0824 Temp: 97.7 degrees F (36.5 degrees C) TempSrc: Temporal Weight: 73.5 kg (162 lb) Height: 1.829 m (6') Physical Exam: left Shoulder Exam Inspection: No swelling. No atrophy. No deformity. ROM: FF 180/180, Abd: 180/180, IR L4, ER 80/80. No scapular dyskinesia. Labral Click present Strength: Supraspinatus 5-/5, ER 5/5, Internal Rotation 5/5 Impingement signs: Hawkin's test:Positive, Neer's Sign:Positive Apprehension: Negative Leflore's test: Positive Biceps tenderness: Negative Speed's test: Negative,Yergason's test:Not Tested/Assessed AC tenderness: Negative Crossbody Adduction: Negative Distally neurovascular intact with 2+ radial pulses and full sensation in R/U/M/axillary nerve distribution. Assessment: ICD-10-CM 1. Impingement syndrome of left shoulder M75.42 Plan: At this time, we have reviewed the past medical notes pertaining to his chief complaint today, as well as his MRI which shows mild rotator cuff tendinosis without evidence of a tear, biceps tendinitis, a labral tear from the biceps anchor posteriorly to the 9 o'clock position, AC joint arthritis, signs of shoulder impingement, as well as low to intermediate grade glenohumeral arthritis. He shows signs of this on exam as well. We have discussed options today with the patient from conservative to surgical. As he has failed a glenohumeral injection, we will proceed with a left subacromial injection today. He will follow up with Dr. Richards in 3-4 months for repeat evaluation. Call with any questions or concerns in the meantime. Associated Order(s): LARGE JOINT/BURSA INJECTION AND/OR ASPIRATION: L subacromial bursa Post-Procedure Diagnose(s): Impingement syndrome of left shoulder LARGE JOINT/BURSA INJECTION AND/OR ASPIRATION: L subacromial bursa Date/Time: 02/18/2023 8:40 AM Performed by: ARMAND Conley Authorized by: ARMAND Conley Supporting Documentation Indications: pain Procedure Details: Location: shoulder - L subacromial bursa Local Anesthetic: ethyl chloride (cold spray) Needle size: 22 G Approach: posterior Medication Verification: I have personally verified and performed the final check of the medication(s) used in this procedure prior to administration. The following items were included during the verification process for medication(s) administered: drug name, strength, volume, expiration, physical integrity and appearance of the medication(s). Medications administered: 2 mL bupivacaine 0.5 %; 4 mL lidocaine 10 mg/mL; 40 mg methylPREDNISolone acetate 40 MG/ML Patient tolerance: patient tolerated the procedure well with no immediate complications Consent: Consent was obtained prior to the procedure after discussion of the risks, benefits and alternatives, and expected outcomes were discussed with the patient. The possibilities of reaction to medication, bleeding, infection, the need for additional procedures, failure to diagnosis a condition, and creating a complication requiring operation were discussed with the patient. The patient concurred with the proposed plan, giving consent. Preparation: Patient was prepped in the usual sterile fashion. The patient was prepped with alcohol. documented in this encounter [facility] 12-30-2022 History of Presen t illness Narrative Chief Complaint Patient presents with Shoulder Pain Left shoulder pain, SA injection received on 09-20-23 with Mir. Pt states that he is still having similar symptoms and requesting injection today, last visit discussed possible GH. HPI: Patient presents in follow-up for left shoulder pain. Left subacromial injection received on 09/20/[address] Schilling. Patient states that he has been having similar symptoms and is requesting a injection today. We discussed during our last visit proceeding with a possible glenohumeral injection in this left shoulder. To recap previous visit: The patient is a pleasant 42 y.o. year old male with a complaint of left shoulder pain. MRI arthrogram completed on 10/04/2022. Patient states that he is at an indoor skydiving facility and grabbed a net while flipping over and injured the left shoulder. Patient states that he has had pain in the shoulder since that time on and off depending on his level of activity. Received a subacromial injection on 09/20/2022 which she states helps with the shoulder pain for a significant amount of time following. Patient states the pain is felt along the lateral aspect of the arm and is deep within the shoulder. He is here today to discuss options. Vitals: 12/30/22 0942 Temp: 98.6 degrees F (37 degrees C) TempSrc: Temporal Weight: 73.5 kg (162 lb) Height: 1.829 m (6') Physical Exam: left Shoulder Exam Inspection: No swelling. No atrophy. No deformity. ROM: FF 180/180, Abd: 180/180, IR L4, ER 80/80. No scapular dyskinesia. Labral Click present Strength: Supraspinatus 5-/5, ER 5/5, Internal Rotation 5/5 Impingement signs: Hawkin's test:Positive, Neer's Sign:Positive Apprehension: Negative Leflore's test: Positive Biceps tenderness: Negative Speed's test: Negative,Yergason's test:Not Tested/Assessed AC tenderness: Negative Crossbody Adduction: Negative Distally neurovascular intact with 2+ radial pulses and full sensation in R/U/M/axillary nerve distribution. Assessment: ICD-10-CM 1. Superior labrum iptuohve-wf-udgsqaznj (SLAP) tear of left shoulder S43.432A 2. Biceps tendonitis on left M75.22 Plan: At this time, we have reviewed the past medical notes pertaining to his chief complaint today, as well as his MRI which shows mild rotator cuff tendinosis without evidence of a tear, biceps tendinitis, a labral tear from the biceps anchor posteriorly to the 9 o'clock position, AC joint arthritis, signs of shoulder impingement, as well as low to intermediate grade glenohumeral arthritis. He shows signs of this on exam as well. We have discussed options today with the patient from conservative to surgical. Patient states that he is more interested in understanding the potential risks of not proceeding with surgery and would not like to proceed unless completely necessary. We have discussed with the patient that surgical intervention is elective and as he is only having pain following extended weekends of skydiving without shoulder instability that surgery is not recommended at this time. Is in continued conservative treatment including physical therapy exercises for range of motion and strength in this left upper extremity. Today we are offering him a left glenohumeral injection as he is more symptomatic for the labral tear on exam today. He is electing to proceed with this at this time. We have discussed that if he receives little to no relief from this injection then we will see him back for a left SA injection. He is electing to proceed with this at this time. He will follow up with us in 3 months for repeat evaluation of the shoulder. Call with any questions or concerns in the meantime. Associated Order(s): LARGE JOINT/BURSA INJECTION AND/OR ASPIRATION: L glenohumeral Post-Procedure Diagnose(s): Superior labrum jkhvmesu-md-prrelbddb (SLAP) tear of left shoulder LARGE JOINT/BURSA INJECTION AND/OR ASPIRATION: L glenohumeral Date/Time: 12/30/2022 10:00 AM Supporting Documentation Indications: pain Procedure Details: Location: shoulder - L glenohumeral Local Anesthetic: ethyl chloride (cold spray) and lidocaine 1% Total Local Anesthetic: 3 mLs Needle size: 22 G (22 spinal gauge ) Approach: posterior Medication Verification: I have personally verified and performed the final check of the medication(s) used in this procedure prior to administration. The following items were included during the verification process for medication(s) administered: drug name, strength, volume, expiration, physical integrity and appearance of the medication(s). Medications administered: 2 mL bupivacaine 0.5 %; 4 mL lidocaine 10 mg/mL; 40 mg methylPREDNISolone acetate 40 MG/ML Patient tolerance: patient tolerated the procedure well with no immediate complications Consent: Consent was obtained prior to the procedure after discussion of the risks, benefits and alternatives, and expected outcomes were discussed with the patient. The possibilities of reaction to medication, bleeding, infection, the need for additional procedures, failure to diagnosis a condition, and creating a complication requiring operation were discussed with the patient. The patient concurred with the proposed plan, giving consent. Preparation: Patient was prepped in the usual sterile fashion. The patient was prepped with alcohol. Chief Complaint Patient presents with Shoulder Pain Left shoulder pain, SA injection received on 09-20-23 with Mir. Pt states that he is still having similar symptoms and requesting injection today, last visit discussed possible GH. HPI: Patient presents in follow-up for left shoulder pain. Left subacromial injection received on 09/20/[address] Schilling. Patient states that he has been having similar symptoms and is requesting a injection today. We discussed during our last visit proceeding with a possible glenohumeral injection in this left shoulder. To recap previous visit: The patient is a pleasant 42 y.o. year old male with a complaint of left shoulder pain. MRI arthrogram completed on 10/04/2022. Patient states that he is at an indoor skydiving facility and grabbed a net while flipping over and injured the left shoulder. Patient states that he has had pain in the shoulder since that time on and off depending on his level of activity. Received a subacromial injection on 09/20/2022 which she states helps with the shoulder pain for a significant amount of time following. Patient states the pain is felt along the lateral aspect of the arm and is deep within the shoulder. He is here today to discuss options. Vitals: 12/30/22 0942 Temp: 98.6 degrees F (37 degrees C) TempSrc: Temporal Weight: 73.5 kg (162 lb) Height: 1.829 m (6') Physical Exam: left Shoulder Exam Inspection: No swelling. No atrophy. No deformity. ROM: FF 180/180, Abd: 180/180, IR L4, ER 80/80. No scapular dyskinesia. Labral Click present Strength: Supraspinatus 5-/5, ER 5/5, Internal Rotation 5/5 Impingement signs: Hawkin's test:Positive, Neer's Sign:Positive Apprehension: Negative Leflore's test: Positive Biceps tenderness: Negative Speed's test: Negative,Yergason's test:Not Tested/Assessed AC tenderness: Negative Crossbody Adduction: Negative Distally neurovascular intact with 2+ radial pulses and full sensation in R/U/M/axillary nerve distribution. Assessment: ICD-10-CM 1. Superior labrum roiatddy-jl-yimjgvcmn (SLAP) tear of left shoulder S43.432A 2. Biceps tendonitis on left M75.22 Plan: At this time, we have reviewed the past medical notes pertaining to his chief complaint today, as well as his MRI which shows mild rotator cuff tendinosis without evidence of a tear, biceps tendinitis, a labral tear from the biceps anchor posteriorly to the 9 o'clock position, AC joint arthritis, signs of shoulder impingement, as well as low to intermediate grade glenohumeral arthritis. He shows signs of this on exam as well. We have discussed options today with the patient from conservative to surgical. Patient states that he is more interested in understanding the potential risks of not proceeding with surgery and would not like to proceed unless completely necessary. We have discussed with the patient that surgical intervention is elective and as he is only having pain following extended weekends of skydiving without shoulder instability that surgery is not recommended at this time. Is in continued conservative treatment including physical therapy exercises for range of motion and strength in this left upper extremity. Today we are offering him a left glenohumeral injection as he is more symptomatic for the labral tear on exam today. He is electing to proceed with this at this time. We have discussed that if he receives little to no relief from this injection then we will see him back for a left SA injection. He is electing to proceed with this at this time. He will follow up with us in 3 months for repeat evaluation of the shoulder. Call with any questions or concerns in the meantime. LARGE JOINT/BURSA INJECTION AND/OR ASPIRATION: L glenohumeral Date/Time: 12/30/2022 10:00 AM Supporting Documentation Indications: pain Procedure Details: Location: shoulder - L glenohumeral Local Anesthetic: ethyl chloride (cold spray) and lidocaine 1% Total Local Anesthetic: 3 mLs Needle size: 22 G (22 spinal gauge ) Approach: posterior Medication Verification: I have personally verified and performed the final check of the medication(s) used in this procedure prior to administration. The following items were included during the verification process for medication(s) administered: drug name, strength, volume, expiration, physical integrity and appearance of the medication(s). Medications administered: 2 mL bupivacaine 0.5 %; 4 mL lidocaine 10 mg/mL; 40 mg methylPREDNISolone acetate 40 MG/ML Patient tolerance: patient tolerated the procedure well with no immediate complications Consent: Consent was obtained prior to the procedure after discussion of the risks, benefits and alternatives, and expected outcomes were discussed with the patient. The possibilities of reaction to medication, bleeding, infection, the need for additional procedures, failure to diagnosis a condition, and creating a complication requiring operation were discussed with the patient. The patient concurred with the proposed plan, giving consent. Preparation: Patient was prepped in the usual sterile fashion. The patient was prepped with alcohol. YOAV Smith was acting as a scribe today for this note. I have performed all essential components of the history, and physical exam. I have confirmed the diagnosis and developed a plan of care at this visit. I have reviewed the note following the visit and have add edits as appropriate to my evaluation and plan of care. Irina Richards MD documented in this encounter [facility] 11-21-2022 History of Presen t illness Narrative Chief Complaint Patient presents with Shoulder Pain Left shoulder - MRI completed on 10/04/22. Patient states that he was indoor skydiving and grabbed a net causing injury to the shoulder. Patient states that he has had pain since the incident. Received a steroid injecion in Sep which he states helps with the shoulder pain. Pain is felt along the lateral arm and deep in the shoulder. HPI: The patient is a pleasant 42 y.o. year old male with a complaint of left shoulder pain. MRI arthrogram completed on 10/04/2022. Patient states that he is at an indoor skydiving facility and grabbed a net while flipping over and injured the left shoulder. Patient states that he has had pain in the shoulder since that time on and off depending on his level of activity. Received a subacromial injection on 09/20/2022 which she states helps with the shoulder pain for a significant amount of time following. Patient states the pain is felt along the lateral aspect of the arm and is deep within the shoulder. He is here today to discuss options. Vitals: 11/22/22 0815 Temp: 98.1 degrees F (36.7 degrees C) TempSrc: Temporal Weight: 73.5 kg (162 lb) Height: 1.829 m (6') Physical Exam: left Shoulder Exam Inspection: No swelling. No atrophy. No deformity. ROM: FF 180/180, Abd: 180/180, IR L4, ER 80/80. No scapular dyskinesia. Labral Click present Strength: Supraspinatus 5-/5, ER 5/5, Internal Rotation 5/5 Impingement signs: Hawkin's test:Positive, Neer's Sign:Positive Apprehension: Negative Leflore's test: Positive Biceps tenderness: Negative Speed's test: Negative,Yergason's test:Not Tested/Assessed AC tenderness: Negative Crossbody Adduction: Negative Distally neurovascular intact with 2+ radial pulses and full sensation in R/U/M/axillary nerve distribution. Assessment: ICD-10-CM 1. Superior labrum vapmblco-uo-vafkutdrs (SLAP) tear of left shoulder S43.432A 2. Impingement syndrome of left shoulder M75.42 3. Biceps tendonitis on left M75.22 4. Arthritis of left acromioclavicular joint M19.012 Plan: At this time, we have reviewed the past medical notes pertaining to his chief complaint today, as well as his MRI which shows mild rotator cuff tendinosis without evidence of a tear, biceps tendinitis, a labral tear from the biceps anchor posteriorly to the 9 o'clock position, AC joint arthritis, signs of shoulder impingement, as well as low to intermediate grade glenohumeral arthritis. He shows signs of this on exam as well. We have discussed options today with the patient from conservative to surgical. Patient states that he is more interested in understanding the potential risks of not proceeding with surgery and would not like to proceed unless completely necessary. We have discussed with the patient that surgical intervention is elective and as he is only having pain following extended weekends of skydiving without shoulder instability that surgery is not recommended at this time. Is in continued conservative treatment including physical therapy exercises for range of motion and strength in this left upper extremity. 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 We have discussed with the patient that if his symptoms may grossly worsen we could further discuss surgical options. He is understanding of this at this time. He has elected to proceed forward with the plan in place. He will us in late December for repeat evaluation and likely SA/GH injection. Call the office with any questions or concerns in meantime. Chief Complaint Patient presents with Shoulder Pain Left shoulder - MRI completed on 10/04/22. Patient states that he was indoor skydiving and grabbed a net causing injury to the shoulder. Patient states that he has had pain since the incident. Received a steroid injecion in Sep which he states helps with the shoulder pain. Pain is felt along the lateral arm and deep in the shoulder. HPI: The patient is a pleasant 42 y.o. year old male with a complaint of left shoulder pain. MRI arthrogram completed on 10/04/2022. Patient states that he is at an indoor skydiving facility and grabbed a net while flipping over and injured the left shoulder. Patient states that he has had pain in the shoulder since that time on and off depending on his level of activity. Received a subacromial injection on 09/20/2022 which she states helps with the shoulder pain for a significant amount of time following. Patient states the pain is felt along the lateral aspect of the arm and is deep within the shoulder. He is here today to discuss options. Vitals: 11/22/22 0815 Temp: 98.1 degrees F (36.7 degrees C) TempSrc: Temporal Weight: 73.5 kg (162 lb) Height: 1.829 m (6') Physical Exam: left Shoulder Exam Inspection: No swelling. No atrophy. No deformity. ROM: FF 180/180, Abd: 180/180, IR L4, ER 80/80. No scapular dyskinesia. Labral Click present Strength: Supraspinatus 5-/5, ER 5/5, Internal Rotation 5/5 Impingement signs: Hawkin's test:Positive, Neer's Sign:Positive Apprehension: Negative Leflore's test: Positive Biceps tenderness: Negative Speed's test: Negative,Yergason's test:Not Tested/Assessed AC tenderness: Negative Crossbody Adduction: Negative Distally neurovascular intact with 2+ radial pulses and full sensation in R/U/M/axillary nerve distribution. Assessment: ICD-10-CM 1. Superior labrum kpatgvob-gv-mltchmptf (SLAP) tear of left shoulder S43.432A 2. Impingement syndrome of left shoulder M75.42 3. Biceps tendonitis on left M75.22 4. Arthritis of left acromioclavicular joint M19.012 Plan: At this time, we have reviewed the past medical notes pertaining to his chief complaint today, as well as his MRI which shows mild rotator cuff tendinosis without evidence of a tear, biceps tendinitis, a labral tear from the biceps anchor posteriorly to the 9 o'clock position, AC joint arthritis, signs of shoulder impingement, as well as low to intermediate grade glenohumeral arthritis. He shows signs of this on exam as well. We have discussed options today with the patient from conservative to surgical. Patient states that he is more interested in understanding the potential risks of not proceeding with surgery and would not like to proceed unless completely necessary. We have discussed with the patient that surgical intervention is elective and as he is only having pain following extended weekends of skydiving without shoulder instability that surgery is not recommended at this time. Is in continued conservative treatment including physical therapy exercises for range of motion and strength in this left upper extremity. 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 We have discussed with the patient that if his symptoms may grossly worsen we could further discuss surgical options. He is understanding of this at this time. He has elected to proceed forward with the plan in place. He will us in late December for repeat evaluation and likely SA/GH injection. Call the office with any questions or concerns in meantime. Brad Little AT was acting as a scribe today for this note. I have performed all essential components of the history, and physical exam. I have confirmed the diagnosis and developed a plan of care at this visit. I have reviewed the note following the visit and have add edits as appropriate to my evaluation and plan of care. Irina Richards MD documented in this encounter [facility] 09-20-2022 History of Presen t illness Narrative Referred by: Self Chief Complaint Patient presents with Left Shoulder - Pain, Follow-up, Joint Injection HPI 42 year old male comes in today for left shoulder pain and follow up with injection. Patient states his pain is described as sharp and burning and rates it at 2/10 at rest and can be 7/10 with certain active. Patient does use Aleve to help with the pain. Patient would like to get injection today and discuss all what the left shoulder surgery would entail, such as what is the likely [place] this would fix his left shoulder and what is the recovery time. 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 At patient last visit on 06/17/2022 Left shoulder injection, informed to follow up as needed. Patient states his last in injection in the shoulder took away the pain completely for a couple months and he noticed the pain returning a month ago. Location: Left Shoulder Quality: Sharp, burning Duration: October 2021 NSAIDs? Aleve Analgesics? No Other pain modalities? No Physical therapy? HEP Xrays? 02/11/2022 left shoulder MRI? 02/22/2022 left shoulder Patient activity (i.e. Job, sport, etc.): [employer] Treatment performed or prescribed at last visit? 06/17/2022 Left shoulder injection, informed to follow up as needed. Response to treatment since last visit? Patient states his last in injection in the shoulder took away the pain completely for a couple months and he noticed the pain returning a month ago. No current outpatient medications on file. History reviewed. No pertinent family history. Social History Tobacco Use Smoking status: Never Smokeless tobacco: Never Substance Use Topics Alcohol use: Yes Alcohol/week: 1.0 standard drink Types: 1 Standard drinks or equivalent per week Drug use: Not Currently No past surgical history on file. Vitals: 09/20/22 0723 Weight: 77.1 kg (169 lb 15.6 oz) Height: 1.829 m (6') Constitutional No fevers, chills or sweats, unintentional weight gain or weight loss, night pain, or night sweats except as per HPI. Cardiovascular No recent chest pain or palpitations. No claudication. No new or worsening lower extremity edema except as per HPI. Respiratory No new or worsening shortness of breath, dyspnea on exertion, orthopnea or paroxysmal nocturnal dyspnea except as per HPI. Gastrointestinal No recent heartburn or stomach upset, no history of ulcers except as per HPI. Musculoskeletal No joint pain, stiffness, or weakness except as per HPI. Endocrine No polyphagia, polydypsia, or polyuria. Hematologic No known or recent anemia, no excessive bleeding. Rheumatologic No history or currently active autoimmune or rheumatologic disease except as per HPI. Integumentary No new or relevant rashes or lesions except as per HPI. Neurologic No numbness, tingling, or weakness into her distal extremities except as per HPI. Constitutional Normal No acute distress. Well nourished. Well developed. Head/Face Normal Facial features - Normal. Eyebrows - Normal. Skull - Normal. Hair and scalp - Normal. Eyes Normal General - Right: Normal, Left: Normal. Lids/external - Right: Normal, Left: Normal. Conjunctiva - Right: Normal, Left: Normal. Ears Normal Inspection - Right: Normal, Left: Normal. Pinna - Right: Normal, Left: Normal. Nasopharynx Normal External nose - Normal. Nares - Right: Normal. Nasal Mucosa - Normal. Lips/teeth/gums - Normal. Buccal mucosa - Normal. Neck Exam Normal Inspection - Normal. Range of motion - Normal. Neck Exam Comments Supple. Respiratory Normal Inspection - Normal. Cough - Absent. Effort - Normal. Cardiovascular Normal Heart rate - Regular rate. Vascular Normal Pulses - Radial: Normal, Brachial: Normal, Dorsalis pedis: Normal, Posterior tibial: Normal. Capillary refill - Less than 2 seconds. Skin * Rash - Description: none. Extremity Normal No Edema. No Calf tenderness. Diabetic Foot Screen Normal Pulses - Dorsalis pedis: Normal, Posterior tibial: Normal. Neurological Normal Level of consciousness - Normal. Orientation - Normal. Memory - Normal. Psychiatric Normal No agitation. Appropriate mood and affect. Appropriate affect. Normal insight. Normal judgment. Associated Order(s): LARGE JOINT/BURSA INJECTION AND/OR ASPIRATION: L subacromial bursa Left shoulder Inspection: No erythema, ecchymosis, swelling or deformity. No open wounds. Palpation: Tender to the greater tuberosity and posterior joint line. ROM: Full AROM with forward flexion, lateral arc, internal and external rotation Laxity: No increased laxity as compared to the contralateral side with sulcus, anterior apprehension sign, or crank test. Strength: Full strength with supraspinatus, infraspinatus, subscapularis. Special Maneuvers: Positive Hawkin s, Neer, Edwards s, Speed s. Negative AC compression test. Positive SLAP test. MRI left shoulder reviewed from 02/22/22 Notes reviewed from 06/17/22 History obtained from patient. ASSESSMENT and PLAN: 1. Superior labrum hjwkieyf-pt-yxtebxalo (SLAP) tear of left shoulder - MRI ARTHROGRAM SHOULDER LEFT 2. Infraspinatus tendonitis, left I am concerned that Lazaro may have a SLAP lesion. RTC seems to be doing better but he is still having lingering shoulder pain. His recent MRI indicates evidence of possible SLAP tear. I feel an MRI with arthrogram is indicated for further treatment. I would like him to return after the MRI for a review. He may call with any questions or concerns. 3. Claustrophobia - diazepam 10 MG tablet; Take 1 tablet by mouth every 6 hours as needed for Anxiety for up to 1 day. Dispense: 1 tablet; Refill: 0 Referrals: MRI left shoulder with arthrogram Medications prescribed today: none Follow up plan: after MRI Severity of problem(s): mild Risk of morbidity or complication from the condition and/or additional testing or treatment: low LARGE JOINT/BURSA INJECTION AND/OR ASPIRATION: L subacromial bursa Date/Time: 09/20/2022 7:10 AM Supporting Documentation Indications: pain Procedure Details: Location: shoulder - L subacromial bursa Needle size: 22 G Approach: posterior Medication Verification: I have personally verified and performed the final check of the medication(s) used in this procedure prior to administration. The following items were included during the verification process for medication(s) administered: drug name, strength, volume, expiration, physical integrity and appearance of the medication(s). Medications administered: 2 mL triamcinolone 40 MG/ML; 1 mL lidocaine 10 mg/mL; 1 mL bupivacaine 0.5 %; 4 mg dexAMETHasone 4 MG/ML Patient tolerance: patient tolerated the procedure well with no immediate complications Pre-Procedure Details The attending physician was present for the entire procedure. Consent: Consent was obtained prior to the procedure after discussion of the risks, benefits and alternatives, and expected outcomes were discussed with the patient. The possibilities of reaction to medication, bleeding, infection, the need for additional procedures, failure to diagnosis a condition, and creating a complication requiring operation were discussed with the patient. The patient concurred with the proposed plan, giving consent. Preparation: Patient was prepped in the usual sterile fashion. The patient was prepped with alcohol. Medical Decision Making At today's visit I reviewed the history, physical examination, and previous pertinent imaging. We weighed the options of whether or not to proceed with an injection today based off of these findings and discussed alternatives. After this discussion, I felt that the injection was indicated and we elected to proceed. This evaluation and management service was a separate and identifiable service apart from the injection. Patient counseled on expected outcome and continued treatment and healing process. Patient tolerated the procedure well and was discharged in good condition with post-procedure instructions and anticipatory guidance regarding possible adverse reactions after the procedure including but not limited to infection, injection site flare reaction, allergic reaction. If corticosteroids were used then specifically the patient may develop hyperglycemia, facial flushing, heart palpitations amongst many other side effects associated with corticosteroids. Referred by: Self Chief Complaint Patient presents with Left Shoulder - Pain, Follow-up, Joint Injection HPI 42 year old male comes in today for left shoulder pain and follow up with injection. Patient states his pain is described as sharp and burning and rates it at 2/10 at rest and can be 7/10 with certain active. Patient does use Aleve to help with the pain. Patient would like to get injection today and discuss all what the left shoulder surgery would entail, such as what is the likely [place] this would fix his left shoulder and what is the recovery time. 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 At patient last visit on 06/17/2022 Left shoulder injection, informed to follow up as needed. Patient states his last in injection in the shoulder took away the pain completely for a couple months and he noticed the pain returning a month ago. Location: Left Shoulder Quality: Sharp, burning Duration: October 2021 NSAIDs? Aleve Analgesics? No Other pain modalities? No Physical therapy? HEP Xrays? 02/11/2022 left shoulder MRI? 02/22/2022 left shoulder Patient activity (i.e. Job, sport, etc.): [employer] Treatment performed or prescribed at last visit? 06/17/2022 Left shoulder injection, informed to follow up as needed. Response to treatment since last visit? Patient states his last in injection in the shoulder took away the pain completely for a couple months and he noticed the pain returning a month ago. No current outpatient medications on file. History reviewed. No pertinent family history. Social History Tobacco Use Smoking status: Never Smokeless tobacco: Never Substance Use Topics Alcohol use: Yes Alcohol/week: 1.0 standard drink Types: 1 Standard drinks or equivalent per week Drug use: Not Currently No past surgical history on file. Vitals: 09/20/22 0723 Weight: 77.1 kg (169 lb 15.6 oz) Height: 1.829 m (6') Constitutional No fevers, chills or sweats, unintentional weight gain or weight loss, night pain, or night sweats except as per HPI. Cardiovascular No recent chest pain or palpitations. No claudication. No new or worsening lower extremity edema except as per HPI. Respiratory No new or worsening shortness of breath, dyspnea on exertion, orthopnea or paroxysmal nocturnal dyspnea except as per HPI. Gastrointestinal No recent heartburn or stomach upset, no history of ulcers except as per HPI. Musculoskeletal No joint pain, stiffness, or weakness except as per HPI. Endocrine No polyphagia, polydypsia, or polyuria. Hematologic No known or recent anemia, no excessive bleeding. Rheumatologic No history or currently active autoimmune or rheumatologic disease except as per HPI. Integumentary No new or relevant rashes or lesions except as per HPI. Neurologic No numbness, tingling, or weakness into her distal extremities except as per HPI. Constitutional Normal No acute distress. Well nourished. Well developed. Head/Face Normal Facial features - Normal. Eyebrows - Normal. Skull - Normal. Hair and scalp - Normal. Eyes Normal General - Right: Normal, Left: Normal. Lids/external - Right: Normal, Left: Normal. Conjunctiva - Right: Normal, Left: Normal. Ears Normal Inspection - Right: Normal, Left: Normal. Pinna - Right: Normal, Left: Normal. Nasopharynx Normal External nose - Normal. Nares - Right: Normal. Nasal Mucosa - Normal. Lips/teeth/gums - Normal. Buccal mucosa - Normal. Neck Exam Normal Inspection - Normal. Range of motion - Normal. Neck Exam Comments Supple. Respiratory Normal Inspection - Normal. Cough - Absent. Effort - Normal. Cardiovascular Normal Heart rate - Regular rate. Vascular Normal Pulses - Radial: Normal, Brachial: Normal, Dorsalis pedis: Normal, Posterior tibial: Normal. Capillary refill - Less than 2 seconds. Skin * Rash - Description: none. Extremity Normal No Edema. No Calf tenderness. Diabetic Foot Screen Normal Pulses - Dorsalis pedis: Normal, Posterior tibial: Normal. Neurological Normal Level of consciousness - Normal. Orientation - Normal. Memory - Normal. Psychiatric Normal No agitation. Appropriate mood and affect. Appropriate affect. Normal insight. Normal judgment. Left shoulder Inspection: No erythema, ecchymosis, swelling or deformity. No open wounds. Palpation: Tender to the greater tuberosity and posterior joint line. ROM: Full AROM with forward flexion, lateral arc, internal and external rotation Laxity: No increased laxity as compared to the contralateral side with sulcus, anterior apprehension sign, or crank test. Strength: Full strength with supraspinatus, infraspinatus, subscapularis. Special Maneuvers: Positive Hawkin s, Neer, Edwards s, Speed s. Negative AC compression test. Positive SLAP test. MRI left shoulder reviewed from 02/22/22 Notes reviewed from 06/17/22 History obtained from patient. ASSESSMENT and PLAN: 1. Superior labrum cbnzgdsh-xc-rxlmcqjmh (SLAP) tear of left shoulder - MRI ARTHROGRAM SHOULDER LEFT 2. Infraspinatus tendonitis, left I am concerned that Lazaro may have a SLAP lesion. RTC seems to be doing better but he is still having lingering shoulder pain. His recent MRI indicates evidence of possible SLAP tear. I feel an MRI with arthrogram is indicated for further treatment. I would like him to return after the MRI for a review. He may call with any questions or concerns. 3. Claustrophobia - diazepam 10 MG tablet; Take 1 tablet by mouth every 6 hours as needed for Anxiety for up to 1 day. Dispense: 1 tablet; Refill: 0 Referrals: MRI left shoulder with arthrogram Medications prescribed today: none Follow up plan: after MRI Severity of problem(s): mild Risk of morbidity or complication from the condition and/or additional testing or treatment: low LARGE JOINT/BURSA INJECTION AND/OR ASPIRATION: L subacromial bursa Date/Time: 09/20/2022 7:10 AM Supporting Documentation Indications: pain Procedure Details: Location: shoulder - L subacromial bursa Needle size: 22 G Approach: posterior Medication Verification: I have personally verified and performed the final check of the medication(s) used in this procedure prior to administration. The following items were included during the verification process for medication(s) administered: drug name, strength, volume, expiration, physical integrity and appearance of the medication(s). Medications administered: 2 mL triamcinolone 40 MG/ML; 1 mL lidocaine 10 mg/mL; 1 mL bupivacaine 0.5 %; 4 mg dexAMETHasone 4 MG/ML Patient tolerance: patient tolerated the procedure well with no immediate complications Pre-Procedure Details The attending physician was present for the entire procedure. Consent: Consent was obtained prior to the procedure after discussion of the risks, benefits and alternatives, and expected outcomes were discussed with the patient. The possibilities of reaction to medication, bleeding, infection, the need for additional procedures, failure to diagnosis a condition, and creating a complication requiring operation were discussed with the patient. The patient concurred with the proposed plan, giving consent. Preparation: Patient was prepped in the usual sterile fashion. The patient was prepped with alcohol. Medical Decision Making At today's visit I reviewed the history, physical examination, and previous pertinent imaging. We weighed the options of whether or not to proceed with an injection today based off of these findings and discussed alternatives. After this discussion, I felt that the injection was indicated and we elected to proceed. This evaluation and management service was a separate and identifiable service apart from the injection. Patient counseled on expected outcome and continued treatment and healing process. Patient tolerated the procedure well and was discharged in good condition with post-procedure instructions and anticipatory guidance regarding possible adverse reactions after the procedure including but not limited to infection, injection site flare reaction, allergic reaction. If corticosteroids were used then specifically the patient may develop hyperglycemia, facial flushing, heart palpitations amongst many other side effects associated with corticosteroids. I have reviewed, edited and added to the above note and agree with those findings. Additions if any: Osmna Schilling MD, [facility] [employer] - [facility] documented in this encounter [facility] 06-17-2022 History of Presen t illness Narrative Referred by: 41 year old male referred by himself Chief Complaint Patient presents with Left Shoulder - Follow-up Patient is here for follow up of his PRP of his left shoulder. He states that his shoulder is still hurting with certain movements. He does not have any pain while at rest. His pain level has decreased since the PRP, but he does still have pain. Location: L shoulder Quality: pain with lifting, ache-intense Duration: since October 2021 NSAIDs? aleve Analgesics? no Other pain modalities? no Physical therapy? HEP Xrays? 02/11/22- left shoulder MRI? 02/22/22- left shoulder Patient activity (i.e. Job, sport, etc.): Treatment performed or prescribed at last visit? PRP left shoulder Response to treatment since last visit? Better, but not great No current outpatient medications on file. No family history on file. Social History Tobacco Use Smoking status: Never Smoker Smokeless tobacco: Never Used Substance Use Topics Alcohol use: Yes Alcohol/week: 1.0 standard drink Types: 1 Standard drinks or equivalent per week Drug use: Not Currently No past surgical history on file. Vitals: 06/17/22 0855 Weight: 77.1 kg (170 lb) Height: 1.829 m (6') Constitutional No fevers, chills or sweats, unintentional weight gain or weight loss, night pain, or night sweats except as per HPI. Cardiovascular No recent chest pain or palpitations. No claudication. No new or worsening lower extremity edema except as per HPI. Respiratory No new or worsening shortness of breath, dyspnea on exertion, orthopnea or paroxysmal nocturnal dyspnea except as per HPI. Gastrointestinal No recent heartburn or stomach upset, no history of ulcers except as per HPI. Musculoskeletal No joint pain, stiffness, or weakness except as per HPI. Endocrine No polyphagia, polydypsia, or polyuria. Hematologic No known or recent anemia, no excessive bleeding. Rheumatologic No history or currently active autoimmune or rheumatologic disease except as per HPI. Integumentary No new or relevant rashes or lesions except as per HPI. Neurologic No numbness, tingling, or weakness into her distal extremities except as per HPI. Constitutional Normal No acute distress. Well nourished. Well developed. Head/Face Normal Facial features - Normal. Eyebrows - Normal. Skull - Normal. Hair and scalp - Normal. Eyes Normal General - Right: Normal, Left: Normal. Lids/external - Right: Normal, Left: Normal. Conjunctiva - Right: Normal, Left: Normal. Ears Normal Inspection - Right: Normal, Left: Normal. Pinna - Right: Normal, Left: Normal. Nasopharynx Normal External nose - Normal. Nares - Right: Normal. Nasal Mucosa - Normal. Lips/teeth/gums - Normal. Buccal mucosa - Normal. Neck Exam Normal Inspection - Normal. Range of motion - Normal. Neck Exam Comments Supple. Respiratory Normal Inspection - Normal. Cough - Absent. Effort - Normal. Cardiovascular Normal Heart rate - Regular rate. Vascular Normal Pulses - Radial: Normal, Brachial: Normal, Dorsalis pedis: Normal, Posterior tibial: Normal. Capillary refill - Less than 2 seconds. Skin * Rash - Description: none. Extremity Normal No Edema. No Calf tenderness. Diabetic Foot Screen Normal Pulses - Dorsalis pedis: Normal, Posterior tibial: Normal. Neurological Normal Level of consciousness - Normal. Orientation - Normal. Memory - Normal. Psychiatric Normal No agitation. Appropriate mood and affect. Appropriate affect. Normal insight. Normal judgment. Associated Order(s): LARGE JOINT/BURSA INJECTION AND/OR ASPIRATION: L subacromial bursa Post-Procedure Diagnose(s): Infraspinatus tendonitis, left Interval exam: Left shoulder Inspection: No erythema, ecchymosis, swelling or deformity. No open wounds. Tender to infraspinatus. NVID XR left shoulder reviewed from 02/11/22 Notes reviewed from 04/17/22 History obtained from patient. ASSESSMENT and PLAN: 1. Infraspinatus tendonitis, left Overall Lazaro is doing a lot better. He is having a little discomfort in his left shoulder so we elected to proceed with injection again today to the left sub acromial bursa with corticosteroid. We reviewed options once again including surgery, but we are not ready to proceed surgically. We will see him back as needed. He was given anticipatory guidance and reminded the importance of his HEP. Referrals: none Medications prescribed today: none Follow up plan: PRN Severity of problem(s): mild Risk of morbidity or complication from the condition and/or additional testing or treatment: low LARGE JOINT/BURSA INJECTION AND/OR ASPIRATION: L subacromial bursa Date/Time: 06/17/2022 8:30 AM Procedure Details: Location: shoulder - L subacromial bursa Medication Verification: I have personally verified and performed the final check of the medication(s) used in this procedure prior to administration. The following items were included during the verification process for medication(s) administered: drug name, strength, volume, expiration, physical integrity and appearance of the medication(s). Medications administered: 1 mL bupivacaine 0.5 %; 1 mL lidocaine 10 mg/mL; 4 mg dexAMETHasone 4 MG/ML; 2 mL triamcinolone 40 MG/ML Patient tolerance: patient tolerated the procedure well with no immediate complications Pre-Procedure Details The attending physician was present for the entire procedure. Consent: Consent was obtained prior to the procedure after discussion of the risks, benefits and alternatives, and expected outcomes were discussed with the patient. The possibilities of reaction to medication, bleeding, infection, the need for additional procedures, failure to diagnosis a condition, and creating a complication requiring operation were discussed with the patient. The patient concurred with the proposed plan, giving consent. Preparation: Patient was prepped in the usual sterile fashion. The patient was prepped with alcohol. Medical Decision Making At today's visit I reviewed the history, physical examination, and previous pertinent imaging. We weighed the options of whether or not to proceed with an injection today based off of these findings and discussed alternatives. After this discussion, I felt that the injection was indicated and we elected to proceed. This evaluation and management service was a separate and identifiable service apart from the injection. Patient counseled on expected outcome and continued treatment and healing process. Patient tolerated the procedure well and was discharged in good condition with post-procedure instructions and anticipatory guidance regarding possible adverse reactions after the procedure including but not limited to infection, injection site flare reaction, allergic reaction. If corticosteroids were used then specifically the patient may develop hyperglycemia, facial flushing, heart palpitations amongst many other side effects associated with corticosteroids. Referred by: 41 year old male referred by himself Chief Complaint Patient presents with Left Shoulder - Follow-up Patient is here for follow up of his PRP of his left shoulder. He states that his shoulder is still hurting with certain movements. He does not have any pain while at rest. His pain level has decreased since the PRP, but he does still have pain. Location: L shoulder Quality: pain with lifting, ache-intense Duration: since October 2021 NSAIDs? aleve Analgesics? no Other pain modalities? no Physical therapy? HEP Xrays? 02/11/22- left shoulder MRI? 02/22/22- left shoulder Patient activity (i.e. Job, sport, etc.): Treatment performed or prescribed at last visit? PRP left shoulder Response to treatment since last visit? Better, but not great No current outpatient medications on file. No family history on file. Social History Tobacco Use Smoking status: Never Smoker Smokeless tobacco: Never Used Substance Use Topics Alcohol use: Yes Alcohol/week: 1.0 standard drink Types: 1 Standard drinks or equivalent per week Drug use: Not Currently No past surgical history on file. Vitals: 06/17/22 0855 Weight: 77.1 kg (170 lb) Height: 1.829 m (6') Constitutional No fevers, chills or sweats, unintentional weight gain or weight loss, night pain, or night sweats except as per HPI. Cardiovascular No recent chest pain or palpitations. No claudication. No new or worsening lower extremity edema except as per HPI. Respiratory No new or worsening shortness of breath, dyspnea on exertion, orthopnea or paroxysmal nocturnal dyspnea except as per HPI. Gastrointestinal No recent heartburn or stomach upset, no history of ulcers except as per HPI. Musculoskeletal No joint pain, stiffness, or weakness except as per HPI. Endocrine No polyphagia, polydypsia, or polyuria. Hematologic No known or recent anemia, no excessive bleeding. Rheumatologic No history or currently active autoimmune or rheumatologic disease except as per HPI. Integumentary No new or relevant rashes or lesions except as per HPI. Neurologic No numbness, tingling, or weakness into her distal extremities except as per HPI. Constitutional Normal No acute distress. Well nourished. Well developed. Head/Face Normal Facial features - Normal. Eyebrows - Normal. Skull - Normal. Hair and scalp - Normal. Eyes Normal General - Right: Normal, Left: Normal. Lids/external - Right: Normal, Left: Normal. Conjunctiva - Right: Normal, Left: Normal. Ears Normal Inspection - Right: Normal, Left: Normal. Pinna - Right: Normal, Left: Normal. Nasopharynx Normal External nose - Normal. Nares - Right: Normal. Nasal Mucosa - Normal. Lips/teeth/gums - Normal. Buccal mucosa - Normal. Neck Exam Normal Inspection - Normal. Range of motion - Normal. Neck Exam Comments Supple. Respiratory Normal Inspection - Normal. Cough - Absent. Effort - Normal. Cardiovascular Normal Heart rate - Regular rate. Vascular Normal Pulses - Radial: Normal, Brachial: Normal, Dorsalis pedis: Normal, Posterior tibial: Normal. Capillary refill - Less than 2 seconds. Skin * Rash - Description: none. Extremity Normal No Edema. No Calf tenderness. Diabetic Foot Screen Normal Pulses - Dorsalis pedis: Normal, Posterior tibial: Normal. Neurological Normal Level of consciousness - Normal. Orientation - Normal. Memory - Normal. Psychiatric Normal No agitation. Appropriate mood and affect. Appropriate affect. Normal insight. Normal judgment. Interval exam: Left shoulder Inspection: No erythema, ecchymosis, swelling or deformity. No open wounds. Tender to infraspinatus. NVID XR left shoulder reviewed from 02/11/22 Notes reviewed from 04/17/22 History obtained from patient. ASSESSMENT and PLAN: 1. Infraspinatus tendonitis, left Overall Lazaro is doing a lot better. He is having a little discomfort in his left shoulder so we elected to proceed with injection again today to the left sub acromial bursa with corticosteroid. We reviewed options once again including surgery, but we are not ready to proceed surgically. We will see him back as needed. He was given anticipatory guidance and reminded the importance of his HEP. Referrals: none Medications prescribed today: none Follow up plan: PRN Severity of problem(s): mild Risk of morbidity or complication from the condition and/or additional testing or treatment: low LARGE JOINT/BURSA INJECTION AND/OR ASPIRATION: L subacromial bursa Date/Time: 06/17/2022 8:30 AM Procedure Details: Location: shoulder - L subacromial bursa Medication Verification: I have personally verified and performed the final check of the medication(s) used in this procedure prior to administration. The following items were included during the verification process for medication(s) administered: drug name, strength, volume, expiration, physical integrity and appearance of the medication(s). Medications administered: 1 mL bupivacaine 0.5 %; 1 mL lidocaine 10 mg/mL; 4 mg dexAMETHasone 4 MG/ML; 2 mL triamcinolone 40 MG/ML Patient tolerance: patient tolerated the procedure well with no immediate complications Pre-Procedure Details The attending physician was present for the entire procedure. Consent: Consent was obtained prior to the procedure after discussion of the risks, benefits and alternatives, and expected outcomes were discussed with the patient. The possibilities of reaction to medication, bleeding, infection, the need for additional procedures, failure to diagnosis a condition, and creating a complication requiring operation were discussed with the patient. The patient concurred with the proposed plan, giving consent. Preparation: Patient was prepped in the usual sterile fashion. The patient was prepped with alcohol. Medical Decision Making At today's visit I reviewed the history, physical examination, and previous pertinent imaging. We weighed the options of whether or not to proceed with an injection today based off of these findings and discussed alternatives. After this discussion, I felt that the injection was indicated and we elected to proceed. This evaluation and management service was a separate and identifiable service apart from the injection. Patient counseled on expected outcome and continued treatment and healing process. Patient tolerated the procedure well and was discharged in good condition with post-procedure instructions and anticipatory guidance regarding possible adverse reactions after the procedure including but not limited to infection, injection site flare reaction, allergic reaction. If corticosteroids were used then specifically the patient may develop hyperglycemia, facial flushing, heart palpitations amongst many other side effects associated with corticosteroids. I have reviewed, edited and added to the above note and agree with those findings. Additions if any: Osman Schilling MD, CAM [facility] [employer] - [facility] documented in this encounter [facility] 04-17-2022 History of Presen t illness Narrative Patient is here today for a PRP injection into his left ISP. He states that since his previous visit his pain is low 1-2/10 since the previous injection, but he knows that the shoulder needs to heal properly. Associated Order(s): UPPER EXTREMITY INJECTION: left infraspinatus tendon insertion Post-Procedure Diagnose(s): Infraspinatus tendonitis, left UPPER EXTREMITY INJECTION: left infraspinatus tendon insertion Date/Time: 04/17/2022 9:30 AM Procedure Details: Procedure: tendon origin / insertion injection Location: shoulder - left infraspinatus tendon insertion Local Anesthetic: bupivacaine 0.5% and lidocaine 1% Guidance: ultrasound Ultrasound probe size: 12 mHz linear Images were saved electronically. Medications administered: 1 mL bupivacaine 0.5 %; 4 mL lidocaine 10 mg/mL; 5 mL sodium chloride (PF) 0.9 % Biological Treatment: platelet-rich plasma injectionPRP Harvested: 9.5 mL Medication Verification: I have personally verified and performed the final check of the medication(s) used in this procedure prior to administration. The following items were included during the verification process for medication(s) administered: drug name, strength, volume, expiration, physical integrity and appearance of the medication(s). Patient tolerance: patient tolerated the procedure well with no immediate complications Consent: Consent was obtained prior to the procedure after discussion of the risks, benefits and alternatives, and expected outcomes were discussed with the patient. The possibilities of reaction to medication, bleeding, infection, the need for additional procedures, failure to diagnosis a condition, and creating a complication requiring operation were discussed with the patient. The patient concurred with the proposed plan, giving consent. Preparation: Patient was prepped in the usual sterile fashion. The patient was prepped with Chloraprep. Patient counseled on expected outcome and continued treatment and healing process. Patient tolerated the procedure well and was discharged in good condition with post-procedure instructions and anticipatory guidance regarding possible adverse reactions after the procedure including but not limited to infection, injection site flare reaction, allergic reaction. If corticosteroids were used then specifically the patient may develop hyperglycemia, facial flushing, heart palpitations amongst many other side effects associated with corticosteroids. Patient is here today for a PRP injection into his left ISP. He states that since his previous visit his pain is low 1-2/10 since the previous injection, but he knows that the shoulder needs to heal properly. UPPER EXTREMITY INJECTION: left infraspinatus tendon insertion Date/Time: 04/17/2022 9:30 AM Procedure Details: Procedure: tendon origin / insertion injection Location: shoulder - left infraspinatus tendon insertion Local Anesthetic: bupivacaine 0.5% and lidocaine 1% Guidance: ultrasound Ultrasound probe size: 12 mHz linear Images were saved electronically. Medications administered: 1 mL bupivacaine 0.5 %; 4 mL lidocaine 10 mg/mL; 5 mL sodium chloride (PF) 0.9 % Biological Treatment: platelet-rich plasma injectionPRP Harvested: 9.5 mL Medication Verification: I have personally verified and performed the final check of the medication(s) used in this procedure prior to administration. The following items were included during the verification process for medication(s) administered: drug name, strength, volume, expiration, physical integrity and appearance of the medication(s). Patient tolerance: patient tolerated the procedure well with no immediate complications Consent: Consent was obtained prior to the procedure after discussion of the risks, benefits and alternatives, and expected outcomes were discussed with the patient. The possibilities of reaction to medication, bleeding, infection, the need for additional procedures, failure to diagnosis a condition, and creating a complication requiring operation were discussed with the patient. The patient concurred with the proposed plan, giving consent. Preparation: Patient was prepped in the usual sterile fashion. The patient was prepped with Chloraprep. Patient counseled on expected outcome and continued treatment and healing process. Patient tolerated the procedure well and was discharged in good condition with post-procedure instructions and anticipatory guidance regarding possible adverse reactions after the procedure including but not limited to infection, injection site flare reaction, allergic reaction. If corticosteroids were used then specifically the patient may develop hyperglycemia, facial flushing, heart palpitations amongst many other side effects associated with corticosteroids. I have reviewed, edited and added to the above note and agree with those findings. Additions if any: Osman Schilling [facility], [facility] [employer]er - [facility] documented in this encounter [facility] 03-14-2022 Instructions Jose Maher ATC - 03/14/2022 10:22 AM EDT This injury consists of a chronic injury to the tendon known as tendinosis or tendinopathy. The treatment consists of an attempt to change a chronic, non-healing status of the tendon into a healing status. This typically consists of treatments focused on stretching and strengthening, especially in the eccentric phase, soft tissue mobilization, and stimulation to bring blood/bleeding to the area. Injections were discussed which fall into line with the concepts above. Occasionally surgical intervention is necessary as well. documented in this encounter [facility] 03-14-2022 History of Presen t illness Narrative Referred by: 41 year old male referred by self Chief Complaint Patient presents with Left Shoulder - MRI Results Patient is here for a follow up after MRI on his left shoulder. Patient states he is still having pain in his shoulder and the pain can reach 8/10 at its worst. Location: left shoulder Quality: radiating, ache, dull Duration: since September 2020 NSAIDs? Aleve and advil as needed Analgesics? Not currently Other pain modalities? Not currently Physical therapy? No previous Xrays? 02/11/2022 left shoulder MRI? 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 Referral to MRI Response to treatment since last visit? Got MRI and is still having pain No current outpatient medications on file. History reviewed. No pertinent family history. Social History Tobacco Use Smoking status: Never Smoker Smokeless tobacco: Never Used Substance Use Topics Alcohol use: Yes Alcohol/week: 1.0 standard drink Types: 1 Standard drinks or equivalent per week No past surgical history on file. There were no vitals filed for this visit. Constitutional No fevers, chills or sweats, unintentional weight gain or weight loss, night pain, or night sweats except as per HPI. Cardiovascular No recent chest pain or palpitations. No claudication. No new or worsening lower extremity edema except as per HPI. Respiratory No new or worsening shortness of breath, dyspnea on exertion, orthopnea or paroxysmal nocturnal dyspnea except as per HPI. Gastrointestinal No recent heartburn or stomach upset, no history of ulcers except as per HPI. Musculoskeletal No joint pain, stiffness, or weakness except as per HPI. Endocrine No polyphagia, polydypsia, or polyuria. Hematologic No known or recent anemia, no excessive bleeding. Rheumatologic No history or currently active autoimmune or rheumatologic disease except as per HPI. Integumentary No new or relevant rashes or lesions except as per HPI. Neurologic No numbness, tingling, or weakness into her distal extremities except as per HPI. Constitutional Normal No acute distress. Well nourished. Well developed. Head/Face Normal Facial features - Normal. Eyebrows - Normal. Skull - Normal. Hair and scalp - Normal. Eyes Normal General - Right: Normal, Left: Normal. Lids/external - Right: Normal, Left: Normal. Conjunctiva - Right: Normal, Left: Normal. Ears Normal Inspection - Right: Normal, Left: Normal. Pinna - Right: Normal, Left: Normal. Nasopharynx Normal External nose - Normal. Nares - Right: Normal. Nasal Mucosa - Normal. Lips/teeth/gums - Normal. Buccal mucosa - Normal. Neck Exam Normal Inspection - Normal. Range of motion - Normal. Neck Exam Comments Supple. Respiratory Normal Inspection - Normal. Cough - Absent. Effort - Normal. Cardiovascular Normal Heart rate - Regular rate. Vascular Normal Pulses - Radial: Normal, Brachial: Normal, Dorsalis pedis: Normal, Posterior tibial: Normal. Capillary refill - Less than 2 seconds. Skin * Rash - Description: none. Extremity Normal No Edema. No Calf tenderness. Diabetic Foot Screen Normal Pulses - Dorsalis pedis: Normal, Posterior tibial: Normal. Neurological Normal Level of consciousness - Normal. Orientation - Normal. Memory - Normal. Psychiatric Normal No agitation. Appropriate mood and affect. Appropriate affect. Normal insight. Normal judgment. Associated Order(s): LARGE JOINT/BURSA INJECTION AND/OR ASPIRATION: L subacromial bursa Interval exam: Tender to L shoulder greater tuberosity MRI reviewed from 02/22/22 L shoulder xray reviewed from 02/11/22 Notes reviewed from 02/11/22 History obtained from patient. ASSESSMENT and PLAN: 1. Infraspinatus tendonitis, left Lazaro's MRI demonstrates abnormal architecture at the insertion site of the infraspinatus. This is caused by repetitive stress, and in return creates disrepair amongst the tendon and its insertion. Lazaro and I explored several beneficial options for treatment. My first recommendation is a PRP injection as this is the the most advantageous to the remodeling of the tendon. We discussed recieving a PROTOTYPER injection which will help reduce the inflammation and render pain relief. During this time he should utilize the therapeutic effects of the PROTOTYPER in conjunction with a HEP program to rebuild strength. Another option reccomended is a percutaneous tenotomy which removes damaged tissue and allows the body to remodel the tendon. Today we moved forward with the PROTOTYPER injection to his L SA bursa. He will utilize the HEP program demonstrated then we'll see him back in the office to perform a PRP injection in our next Sports [facility] injection appointment. Referrals: HEP Scap/stab Medications prescribed today: none Follow up plan: Lt Sports infraspinatus USG PRP Severity of problem(s): mild Risk of morbidity from the condition and/or additional testing and treatment: low I spent approximately 35 minutes in seeing the patient, counseling about this problem and discussing the different treatment options available, reviewing the chart, imaging and preparing documentation. We discussed how to increase activity level. We discussed and demonstrated exercises as well. We discussed the concepts of MRI and educated on the significance of MRI findings. I independently interpreted the MRI and compared that with the radiologist s interpretation. I then showed the images and discussed their relevance to the diagnosis. LARGE JOINT/BURSA INJECTION AND/OR ASPIRATION: L subacromial bursa Date/Time: 03/14/2022 10:00 AM Procedure Details: Location: shoulder - L subacromial bursa Medication Verification: I have personally verified and performed the final check of the medication(s) used in this procedure prior to administration. The following items were included during the verification process for medication(s) administered: drug name, strength, volume, expiration, physical integrity and appearance of the medication(s). Medications administered: 1 mL bupivacaine 0.5 %; 1 mL lidocaine 10 mg/mL; 4 mg dexAMETHasone 4 MG/ML; 2 mL triamcinolone 40 MG/ML Patient tolerance: patient tolerated the procedure well with no immediate complications Consent: Consent was obtained prior to the procedure after discussion of the risks, benefits and alternatives, and expected outcomes were discussed with the patient. The possibilities of reaction to medication, bleeding, infection, the need for additional procedures, failure to diagnosis a condition, and creating a complication requiring operation were discussed with the patient. The patient concurred with the proposed plan, giving consent. Preparation: Patient was prepped in the usual sterile fashion. The patient was prepped with alcohol. Medical Decision Making At today's visit I reviewed the history, physical examination, and previous pertinent imaging. We weighed the options of whether or not to proceed with an injection today based off of these findings and discussed alternatives. After this discussion, I felt that the injection was indicated and we elected to proceed. This evaluation and management service was a separate and identifiable service apart from the injection. Patient counseled on expected outcome and continued treatment and healing process. Patient tolerated the procedure well and was discharged in good condition with post-procedure instructions and anticipatory guidance regarding possible adverse reactions after the procedure including but not limited to infection, injection site flare reaction, allergic reaction. If corticosteroids were used then specifically the patient may develop hyperglycemia, facial flushing, heart palpitations amongst many other side effects associated with corticosteroids. This injury consists of a chronic injury to the tendon known as tendinosis or tendinopathy. The treatment consists of an attempt to change a chronic, non-healing status of the tendon into a healing status. This typically consists of treatments focused on stretching and strengthening, especially in the eccentric phase, soft tissue mobilization, and stimulation to bring blood/bleeding to the area. Injections were discussed which fall into line with the concepts above. Occasionally surgical intervention is necessary as well. PRP is a treatment where your own blood is used to concentrate growth factors and then inject them into an injured area. This treatment is currently considered experimental and not covered by insurance. The cost is $500 per injection. We discussed the benefits of platelet rich plasma (PRP), current evidence for use and typical applications. We discussed the lack of insurance coverage for this treatment and the 100% patient responsibility for the cost which is a single charge of $500. The patient voiced understanding and agreed they would like to proceed. Blood draw: 180cc Arthrex setting: tendon Referred by: 41 year old male referred by self Chief Complaint Patient presents with Left Shoulder - MRI Results Patient is here for a follow up after MRI on his left shoulder. Patient states he is still having pain in his shoulder and the pain can reach 8/10 at its worst. Location: left shoulder Quality: radiating, ache, dull Duration: since September 2020 NSAIDs? Aleve and advil as needed Analgesics? Not currently Other pain modalities? Not currently Physical therapy? No previous Xrays? 02/11/2022 left shoulder MRI? 02/22/2022 left shoulder Patient activity (i.e. Job, sport, etc.): [employer], [employer], also works at [employer] Treatment performed or prescribed at last visit? Referral to MRI Response to treatment since last visit? Got MRI and is still having pain No current outpatient medications on file. History reviewed. No pertinent family history. Social History Tobacco Use Smoking status: Never Smoker Smokeless tobacco: Never Used Substance Use Topics Alcohol use: Yes Alcohol/week: 1.0 standard drink Types: 1 Standard drinks or equivalent per week No past surgical history on file. There were no vitals filed for this visit. Constitutional No fevers, chills or sweats, unintentional weight gain or weight loss, night pain, or night sweats except as per HPI. Cardiovascular No recent chest pain or palpitations. No claudication. No new or worsening lower extremity edema except as per HPI. Respiratory No new or worsening shortness of breath, dyspnea on exertion, orthopnea or paroxysmal nocturnal dyspnea except as per HPI. Gastrointestinal No recent heartburn or stomach upset, no history of ulcers except as per HPI. Musculoskeletal No joint pain, stiffness, or weakness except as per HPI. Endocrine No polyphagia, polydypsia, or polyuria. Hematologic No known or recent anemia, no excessive bleeding. Rheumatologic No history or currently active autoimmune or rheumatologic disease except as per HPI. Integumentary No new or relevant rashes or lesions except as per HPI. Neurologic No numbness, tingling, or weakness into her distal extremities except as per HPI. Constitutional Normal No acute distress. Well nourished. Well developed. Head/Face Normal Facial features - Normal. Eyebrows - Normal. Skull - Normal. Hair and scalp - Normal. Eyes Normal General - Right: Normal, Left: Normal. Lids/external - Right: Normal, Left: Normal. Conjunctiva - Right: Normal, Left: Normal. Ears Normal Inspection - Right: Normal, Left: Normal. Pinna - Right: Normal, Left: Normal. Nasopharynx Normal External nose - Normal. Nares - Right: Normal. Nasal Mucosa - Normal. Lips/teeth/gums - Normal. Buccal mucosa - Normal. Neck Exam Normal Inspection - Normal. Range of motion - Normal. Neck Exam Comments Supple. Respiratory Normal Inspection - Normal. Cough - Absent. Effort - Normal. Cardiovascular Normal Heart rate - Regular rate. Vascular Normal Pulses - Radial: Normal, Brachial: Normal, Dorsalis pedis: Normal, Posterior tibial: Normal. Capillary refill - Less than 2 seconds. Skin * Rash - Description: none. Extremity Normal No Edema. No Calf tenderness. Diabetic Foot Screen Normal Pulses - Dorsalis pedis: Normal, Posterior tibial: Normal. Neurological Normal Level of consciousness - Normal. Orientation - Normal. Memory - Normal. Psychiatric Normal No agitation. Appropriate mood and affect. Appropriate affect. Normal insight. Normal judgment. Interval exam: Tender to L shoulder greater tuberosity MRI reviewed from 02/22/22 L shoulder xray reviewed from 02/11/22 Notes reviewed from 02/11/22 History obtained from patient. ASSESSMENT and PLAN: 1. Infraspinatus tendonitis, left Lazaro's MRI demonstrates abnormal architecture at the insertion site of the infraspinatus. This is caused by repetitive stress, and in return creates disrepair amongst the tendon and its insertion. Lazaro and I explored several beneficial options for treatment. My first recommendation is a PRP injection as this is the the most advantageous to the remodeling of the tendon. We discussed recieving a PROTOTYPER injection which will help reduce the inflammation and render pain relief. During this time he should utilize the therapeutic effects of the PROTOTYPER in conjunction with a HEP program to rebuild strength. Another option reccomended is a percutaneous tenotomy which removes damaged tissue and allows the body to remodel the tendon. Today we moved forward with the PROTOTYPER injection to his L SA bursa. He will utilize the HEP program demonstrated then we'll see him back in the office to perform a PRP injection in our next Sports USG injection appointment. Referrals: HEP Scap/stab Medications prescribed today: none Follow up plan: Lt Sports infraspinatus USG PRP Severity of problem(s): mild Risk of morbidity from the condition and/or additional testing and treatment: low I spent approximately 35 minutes in seeing the patient, counseling about this problem and discussing the different treatment options available, reviewing the chart, imaging and preparing documentation. We discussed how to increase activity level. We discussed and demonstrated exercises as well. We discussed the concepts of MRI and educated on the significance of MRI findings. I independently interpreted the MRI and compared that with the radiologist s interpretation. I then showed the images and discussed their relevance to the diagnosis. LARGE JOINT/BURSA INJECTION AND/OR ASPIRATION: L subacromial bursa Date/Time: 03/14/2022 10:00 AM Procedure Details: Location: shoulder - L subacromial bursa Medication Verification: I have personally verified and performed the final check of the medication(s) used in this procedure prior to administration. The following items were included during the verification process for medication(s) administered: drug name, strength, volume, expiration, physical integrity and appearance of the medication(s). Medications administered: 1 mL bupivacaine 0.5 %; 1 mL lidocaine 10 mg/mL; 4 mg dexAMETHasone 4 MG/ML; 2 mL triamcinolone 40 MG/ML Patient tolerance: patient tolerated the procedure well with no immediate complications Consent: Consent was obtained prior to the procedure after discussion of the risks, benefits and alternatives, and expected outcomes were discussed with the patient. The possibilities of reaction to medication, bleeding, infection, the need for additional procedures, failure to diagnosis a condition, and creating a complication requiring operation were discussed with the patient. The patient concurred with the proposed plan, giving consent. Preparation: Patient was prepped in the usual sterile fashion. The patient was prepped with alcohol. Medical Decision Making At today's visit I reviewed the history, physical examination, and previous pertinent imaging. We weighed the options of whether or not to proceed with an injection today based off of these findings and discussed alternatives. After this discussion, I felt that the injection was indicated and we elected to proceed. This evaluation and management service was a separate and identifiable service apart from the injection. Patient counseled on expected outcome and continued treatment and healing process. Patient tolerated the procedure well and was discharged in good condition with post-procedure instructions and anticipatory guidance regarding possible adverse reactions after the procedure including but not limited to infection, injection site flare reaction, allergic reaction. If corticosteroids were used then specifically the patient may develop hyperglycemia, facial flushing, heart palpitations amongst many other side effects associated with corticosteroids. This injury consists of a chronic injury to the tendon known as tendinosis or tendinopathy. The treatment consists of an attempt to change a chronic, non-healing status of the tendon into a healing status. This typically consists of treatments focused on stretching and strengthening, especially in the eccentric phase, soft tissue mobilization, and stimulation to bring blood/bleeding to the area. Injections were discussed which fall into line with the concepts above. Occasionally surgical intervention is necessary as well. PRP is a treatment where your own blood is used to concentrate growth factors and then inject them into an injured area. This treatment is currently considered experimental and not covered by insurance. The cost is $500 per injection. We discussed the benefits of platelet rich plasma (PRP), current evidence for use and typical applications. We discussed the lack of insurance coverage for this treatment and the 100% patient responsibility for the cost which is a single charge of $500. The patient voiced understanding and agreed they would like to proceed. Blood draw: 180cc Arthrex setting: tendon - leukocyte rich I have reviewed, edited and added to the above note and agree with those findings. Additions if any: Osman Schilling MD, CAQSM [facility] [employer]er - [facility] documented in this encounter [facility] Evaluation note Diagnosis Infraspinatus tendonitis, left- Primary [facility] Diagnosis Infraspinatus tendonitis, left- Primary [facility] Diagnosis Infraspinatus tendonitis, left- Primary [facility] Diagnosis Superior labrum joeupxpz-rd-wxvtlwffn (SLAP) tear of left shoulder [facility] Diagnosis Superior labrum rqatfvhe-xb-rlasektgp (SLAP) tear of left shoulder- Primary Infraspinatus tendonitis, left Claustrophobia Other isolated or specific phobias Superior labrum wtjpcfhz-ir-xznmeulwm (SLAP) tear of left shoulder documented [facility] this encounter [facility]* Diagnosis Superior labrum fwaigahf-bk-shvacteca (SLAP) tear of left shoulder- Primary Impingement syndrome of left shoulder Other affections of shoulder region, not elsewhere classified Biceps tendonitis on left Bicipital tenosynovitis Arthritis of left acromioclavicular joint documented in this encounter [facility]* Diagnosis Superior labrum lodjrmxv-yj-rrxpwtzip (SLAP) tear of left shoulder- Primary Biceps tendonitis on left Bicipital tenosynovitis documented in this encounter [facility]* Diagnosis Impingement syndrome of left shoulder- Primary Other affections of shoulder region, not elsewhere classified documented in this encounter [facility] note* Diagnosis Impingement syndrome of left shoulder- Primary Other affections of shoulder region, not elsewhere classified Superior labrum lbikevvd-bh-kazadxqew (SLAP) tear of left shoulder Biceps tendonitis on left Bicipital tenosynovitis Arthritis of left acromioclavicular joint documented in this encounter [facility]* Diagnosis Tear of left rotator cuff, unspecified tear extent, unspecified whether traumatic- Primary Superior labrum wbsugtvx-ix-hrztjakux (SLAP) tear of left shoulder Impingement syndrome of left shoulder Other affections of shoulder region, not elsewhere classified Biceps tendonitis on left Bicipital tenosynovitis Arthritis of left acromioclavicular joint documented in this encounter [facility] note* Diagnosis Tear of left rotator cuff, unspecified tear extent, unspecified whether traumatic- Primary Superior labrum qzwevugv-ra-kdqujvwzj (SLAP) tear of left shoulder Impingement syndrome of left shoulder Other affections of shoulder region, not elsewhere classified Biceps tendonitis on left Bicipital tenosynovitis Arthritis of left acromioclavicular joint Tear of left rotator cuff, unspecified tear extent, unspecified whether traumatic Superior labrum yaeqdeva-el-kboofcjxn (SLAP) tear of left shoulder Impingement syndrome of left shoulder Other affections of shoulder region, not elsewhere classified Biceps tendonitis, left Arthritis of left acromioclavicular joint [facility] Diagnosis S/P rotator cuff repair- Primary Other postprocedural status [facility] Diagnosis S/P rotator cuff repair- Primary Other postprocedural status Status post labral repair of shoulder documented in this encounter [facility] Reason for Referral Specialty Diagnoses / Procedures Referred By Contac t Referred To Contact Diagnoses Infraspinatus tendonitis, left Procedures [facility]TH[facility] Osman Schilling MD [address] [place] [address] [place] [address] Referral ID Status Reason Start Date Expiration Date V isits Requested Visits Authorized [id number] New Request 04/17/2022 2023 1 1 Specialty Diagnoses / Procedures Referred By Contac t Referred To Contact Diagnoses Superior labrum wmdxobzf-hb-hefxnwwvo (SLAP) tear of left shoulder Procedures MRI SHOULDER LEFT WITH CONTRAST SD MRI, JOINT UPPER EXTREM W/CONTRAST Osman Schilling MD [address] [place] [address] [place] [address] Referral ID Status Reason Start Date Expiration Date Visits Re quested Visits Authorized [id number] Closed 09/20/2022 10/15/2023 1 1 Specialty Diagnoses / Procedures Referred By Contac t Referred To Contact Diagnoses Superior labrum eirzwesk-pb-ewhcrkkix (SLAP) tear of left shoulder Procedures XR FLUORO ARTHROGRAM SHOULDER LEFT Osman Schilling MD [address] [place] [address] [place] [address] Referral ID Status Reason Start Date Expiration Date Visits Re quested Visits Authorized [id number] Closed 09/20/2022 10/15/2023 1 1 Specialty Diagnoses / Procedures Referred By Contac t Referred To Contact Physical Therapy Diagnoses S/P rotator cuff repair Daniel Hickman, CREW PERSON-SUPER[employer] [address] [place] [address] Referral ID Status Reason Start Date Expiration Date V isits Requested Visits Authorized [id number] New Request 10/09/2023 11/02/2024 1 1 Scheduling Instructions . Summary Purpose Family History No Family History Records FoundNo Family History Records FoundNo Family History Records FoundNo Family History Records Found Advance Directives No Advanced Directives Records FoundNo Advanced Directives Records FoundNo Advanced Directives Records FoundNo Advanced Directives Records Found Additional Source Comments Care Teams (unrecognized sec tion and content) Commission Broker Relationship Specialty Start Date End Date Yaritza Dowling MD [address], [place] [id number] PCP - General Family Medicine 02/11/22 Commission Broker Relationship Specialty Start Date End Date Yaritza Dowling MD [address] [place] [address] PCP - General Family Medicine 02/11/22 Commission Broker Relationship Specialty Start Date End Date Yaritza Dowling MD [address], [place] [id number] PCP - General Family Medicine 02/11/22 Commission Broker Relationship Specialty Start Date End Date Yaritza Dowling MD [address], [place] [address] PCP - General Family Medicine 02/11/22 Commission Broker Relationship Specialty Start Date End Date Yaritza Dowling MD [address], [place] [id number] PCP - General Family Medicine 02/11/22 Commission Broker Relationship Specialty Start Date End Date Yaritza Dowling MD [address], [place] [id number] PCP - General Family Medicine 02/11/22 Commission Broker Relationship Specialty Start Date End Date Yaritza Dowling MD [address], [place] [id number] PCP - General Family Medicine 02/11/22 Commission Broker Relationship Specialty Start Date End Date Yaritza Dowling MD [address], [place] [address] PCP - General Family Medicine 02/11/22 Commission Broker Relationship Specialty Start Date End Date Yaritza Dowling MD [address], [place] [address] PCP - General Family Medicine 02/11/22 Commission Broker Relationship Specialty Start Date End Date Yaritza Dowling MD [address], [place] [id number] PCP - General Family Medicine 02/11/22 Commission Broker Relationship Specialty Start Date End Date Yaritza Dowling MD [address], [place] [id number] PCP - General Family Medicine 02/11/22 Commission Broker Relationship Specialty Start Date End Date Yaritza Dowling MD [address], [place] [address] PCP - General Family Medicine 02/11/22 Commission Broker Relationship Specialty Start Date End Date Yaritza Dowling MD [address], [place] [address] PCP - General Family Medicine 02/11/22 Commission Broker Relationship Specialty Start Date End Date Yaritza Dowling MD [address], [place] [address] PCP - General Family Medicine 02/11/22 Commission Broker Relationship Specialty Start Date End Date Yaritza Dowling MD [address] [facility] [address], [place] [address] PCP - General Family Medicine 02/11/22 Reason for Visit (unrecogniz ed section and content) Specialty Diagnoses / Procedures Referred By Contac t Referred To Contact Magnetic Resonance Imaging Diagnoses Tear of left rotator cuff, unspecified tear extent, unspecified whether traumatic Procedures MRI SHOULDER LEFT WITHOUT CONTRAST SD MRI, JOINT UPPER EXTREM Osman Schilling MD [address] [place] [address] [place] [address] [facility] [address] [place] [phone] Referral ID Status Reason Start Date Expiration Date Visits Re quested Visits Authorized [id number] Closed 02/11/2022 03/08/2023 1 1 Reason Comments MRI Results Reason Comments Follow-up Pain Joint Injection Specialty Diagnoses / Procedures Referred By Contac t Referred To Contact Diagnoses Infraspinatus tendonitis, left Procedures US IMAGING FOR ORTHO Osman Schilling MD [address] [place] [address] Referral ID Status Reason Start Date Expiration Date V isits Requested Visits Authorized [id number] New Request 04/17/2022 2023 1 1 Reason Comments Follow-up Specialty Diagnoses / Procedures Referred By Contac t Referred To Contact Diagnoses Superior labrum fvprktzr-ya-nkdtvyssq (SLAP) tear of left shoulder Procedures XR FLUORO ARTHROGRAM SHOULDER LEFT Osman Schilling MD [address] [place] [id number] Referral ID Status Reason Start Date Expiration Date Visits Re quested Visits Authorized [id number] Closed 09/20/2022 10/15/2023 1 1 Specialty Diagnoses / Procedures Referred By Contac t Referred To Contact Diagnoses Superior labrum cdiyhctr-gi-fvctfsyoo (SLAP) tear of left shoulder Procedures MRI SHOULDER LEFT WITH CONTRAST SD MRI, JOINT UPPER EXTREM W/CONTRAST Osman Schilling MD [address] [facility] [place] [address] Referral ID Status Reason Start Date Expiration Date Visits Re quested Visits Authorized [id number] Closed 09/20/2022 10/15/2023 1 1 Reason Comments Pain Follow-up Joint Injection Reason Comments Shoulder Pain Left shoulder - MRI completed on 10/04/22. Patient states that he was indoor skydiving and grabbed a net causing injury to the shoulder. Patient states that he has had pain since the incident. Received a steroid injecion in Sep which he states helps with the shoulder pain. Pain is felt along the lateral arm and deep in the shoulder. Specialty Diagnoses / Procedures Referred By Betty montes Referred To Contact Orthopaedics Diagnoses Superior labrum pgkihnyn-tc-giiwweapa (SLAP) tear of left shoulder Osman Schilling MD [address] [facility] [place] [address] Irina Richards MD [address] [place], [place] [id number] Referral ID Status Reason Start Date Expiration Date V isits Requested Visits Authorized [id number] New Request 10/10/2022 11/04/2023 1 1 Reason Comments Shoulder Pain Left shoulder pain, SA injection received on 09-20-22 with Mir. Pt states that he is still having similar symptoms and requesting injection today, last visit discussed possible GH. Reason Comments Shoulder Pain Left shoulder pain, pt requesting SA injection GH received on 12-30-22. Pt states that he didn't get much if any relief and would like to try previous injection. Reason Comments Shoulder Pain Left shoulder - Rece ived left SA injection on 02/18/23. Patient states that the injection helped with the pain until 2 weeks ago when the pain returned. Patient is requesting a repeat injection today. Reason Comments Shoulder Pain Left shoulder - Rece ived SA injection on 05/26/23. Patient states that the injection only helped with the pain for around 6 weeks. Patient would like to discuss options. Reason Comments Shoulder Pain Left shoulder - Gail ent states that the shoulder pain has been getting pretty severe and would like to proceed with surgical intervention. Specialty Diagnoses / Procedures Referred By Betty montes Referred To Contact Diagnoses Tear of left rotator cuff, unspecified tear extent, unspecified whether traumatic Superior labrum yyhxfctl-mk-sggxuxwrt (SLAP) tear of left shoulder Impingement syndrome of left shoulder Biceps tendonitis, left Arthritis of left acromioclavicular joint Tear of left rotator cuff, unspecified tear extent, unspecified whether traumatic [M75.102] Superior labrum auvfjoht-tt-slcmarsxt (SLAP) tear of left shoulder [S43.432A] Impingement syndrome of left shoulder [M75.42] Biceps tendonitis, left [M75.22] Arthritis of left acromioclavicular joint [M19.012] Procedures SD SHLDR ARTHROSCOP,SURG,W/ROTAT CUFF REPR SD SHOULDER SCOPE BONE SHAVING SD ARTHROSCOPY SHOULDER SURGICAL BICEPS TENODESIS SD SHLDR ARTHROSCOP,SURG,DIS CLAVICULECTOMY ARTHROSCOPY SHOULDER W/ ROTATOR CUFF REPAIR ARTHROSCOPY SHOULDER W/ SUBACROMIAL DECOMPRESSION/ACROMIOPLASTY ADD-ON PX ARTHROSCOPY SHOULDER W/ BICEPS TENODESIS ARTHROSCOPY SHOULDER W/ DISTAL CLAVICULECTOMY Irina Richards MD [address] [place] [id number] Referral ID Status Reason Start Date Expiration Date Visits Re quested Visits Authorized [id number] 10/01/2023 1 1 Reason Comments Post Op Visit 2wk S/p left shoulde r arthroscopy, RCR, labral repair, bicep tenodesis. Patient states he's doing well, in PT 2-3x/week. (unrecognized sect ion and content) No Status Records FoundNo Status Records FoundNo Status Records FoundNo Status Records Found INFORMATION SOURCE (unrecogn ized section and content) DATE CREATED AUTHOR 10/10/2022 [facility] DATE CREATED AUTHOR AUTHOR'S ORGANIZ ATION 12/21/2022 [facility] DATE CREATED AUTHOR AUTHOR'S ORGANIZ ATION 10/17/2023 [facility] DATE CREATED AUTHOR AUTHOR'S ORGANIZ ATION 10/17/2023 [facility] Continuous Active and Recently Administ ered Medications (unrecognized section and content) Medication Order 10/07/2023 10/08/2023 10/09/2023 Lactated ringers IV solution Intravenous, at 75 mL/hr, CONTINUOUS, Starting on Marianela 10/09/23 at 0830, Until Marianela 10/09/23 at 1701, Pre-op/Pre-Proc 0830 (Canceled Entry - Provider: System Discharge - Comment: Automatically canceled at discontinue of medication order)1450 (Stopped - Provider: Kelli June RN) ROPivacaine (NAROPIN) 0.2% 1,500 mg, On-Q Pump 1 Each Cathleen-neural, CONTINUOUS, Starting on Marianela 10/09/23 at 1345, Until Marianela 10/09/23 at 1701, Recovery to Continue 1333 ($$New Bag$$ - Provider: Mariangel Rosenbaum RN) PRN Medication Order 10/07/2023 10/08/2023 10/09/2023 ceFAZolin (ANCEF) 2 g in dextrose 100 mL premix IVPB 2 g, Intravenous, Administer over 15 Minutes, [employer] SCI[employer]IST TO PROCEDURE, 1 dose, Starting on Marianela 10/09/23 at 0823, Until Marianela 10/09/23 at 1701, Other, Pre-operative antibiotic, Pre-op/Pre-Proc EPINEPHrine PF (ADRENALIN) 1 MG/ML 1 mg in Lactated ringers 10,000 mL irrigation solution (CANCELED) NEEDED, Starting on Marianela 10/09/23 at 1215, Until Marianela 10/09/23 at 1329, Intra-op/Intra-Proc 1215 (Given - Provid er: Irina Richards MD - Comment: used with Arthrex machine) Ondansetron 4mg/2ml (ZOFRAN) injection 4 mg 4 mg, Intravenous, EVERY 4 HOURS NEEDED, Starting on Marianela 10/09/23 at 1332, Until Marianela 10/09/23 at 1701, Nausea / Vomiting, Post-op/Post-Proc 1335 (Given - Provid er: Mariangel Rosenbaum RN) oxyCODONE-acetaminophen (PERCOCET) 5-325 MG per tablet 1-2 tablet 1-2 tablet, Oral, EVERY 4 HOURS NEEDED, Starting on Marianela 10/09/23 at 1332, Until Marianela 10/09/23 at 1701, Moderate Pain, Post-op/Post-Proc No Frequency Medication Order 10/07/2023 10/08/2023 10/09/2023 ROPivacaine (NAROPIN) 0.5% injection 1 dose, Starting on Marianela 10/09/23 at 1017, Until 10/10/23 at 1030, Ilir Loredo: cabinet override 1030 (Canceled Entry - Provider: System Discharge - Comment: Automatically canceled at discontinue of medication order) FOR RECORDS PERTAINING TO PATIENTS WHO ARE OR HAVE BEEN ENROLLED IN A CHEMICAL DEPENDENCY/SUBSTANCEABUSE PROGRAM, SOME INFORMATION MAY BE OMITTED. This clinical summary was aggregated from multiple sources. Caution should be exercised in using it in the provision of clinical care. This summary normalizes information from multiple sources, and as a consequence, information in this document may materially change the coding, format and clinical context of patient data. In addition, data may be omitted in some cases. CLINICAL DECISIONS SHOULD BE BASED ON THE PRIMARY CLINICAL RECORDS. [facility]. provides no warranty or guarantee of the accuracy or completeness of information in this document.
--- NOTE | 2023-10-24 12:03 | ECG_ITS ---
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
--- NOTE | 2023-10-24 12:40 | PC.NURSE ---
Patient reports having episodes of feeling faint off and on for several days. Patient denies feeling of dizziness at this time.
[2023-10-24 13:12] LABS: Basophils Percent Auto 0.6 % (0.2-2.0); Eosinophils Absolute Auto 0.1 10^3/uL (0.0-0.7); Hematocrit 43.9 % (42.0-54.0); Hemoglobin 14.9 g/dL (14.0-18.0); Immature Granulocytes Abs Auto 0.02 10^3/uL (0.00-0.03); Immature Granulocytes Pct Auto 0.3 % (0.0-0.5); Lymphocytes Absolute Auto 1.7 10^3/uL (1.2-3.8); Lymphocytes Percent Auto 23.8 % (20.5-60.0); Mean Corpuscular HGB Conc 33.9 g/dL (29.9-35.2); Mean Corpuscular Hemoglobin 29.7 pg (25.9-34.0); Mean Corpuscular Volume 87.5 fL (80.0-94.0); Monocytes Absolute Auto 0.5 10^3/uL (0.3-0.8); Monocytes Percent Auto 6.5 % (1.7-12.0); Neutrophils Absolute Auto 4.8 10^3/uL (1.4-6.5); Neutrophils Percent Auto 67.8 % (43.0-75.0); Platelet Count 246 10^3/uL (150-450); Red Blood Count 5.02 10^6/uL (4.70-6.10); Red Cell Distribution Width 12.8 % (11.0-15.0); White Blood Count 7.1 10^3/uL (4.0-11.0)
--- NOTE | 2023-10-24 13:20 | CT_ITS ---
[address] [address] Patient Name: SIDDHARTHA OLIVEROS MRN: [id number] date: 1980 Sex: M Assigned Patient Location: ER Current Patient Location: Accession/Order Number: [id number] Exam Date: 10/24/2023 13:58 Report Date: 10/24/2023 14:36 At the request of: CHRIS PADILLA Procedure: CT angio chest EXAMINATION: CT angio chest HISTORY: r/o pe , tachycardia, dizziness COMPARISON: No relevant comparison available. TECHNIQUE: Multi-planar CT images were created with IV contrast. Axial, Coronal, and Sagittal images. Dose reduction techniques were achieved by using automated exposure control and/or adjustment of mA and/or kV according to patient size and/or use of iterative reconstruction technique. FINDINGS: LUNGS: No visible pulmonary disease. PLEURA: No mass, effusion, or pneumothorax. VASCULATURE: Normal postcontrast opacification of the central pulmonary arterial tree with no filling defects VIJAY: No mass or adenopathy. MEDIASTINUM: No mass or adenopathy. CARDIAC: No enlargement, pericardial thickening, or significant calcification. AORTA: No aneurysm or dissection. CHEST WALL: No mass or axillary adenopathy. BONES: No bone lesion or fracture. LIMITED ABDOMEN: No suspicious findings. Limited images of the upper abdomen. OTHER: Negative. CT/CT angio chest IMPRESSION: No central pulmonary embolic disease Electronically authenticated by: MEGHAN COATS Date: 10/24/2023 14:36
[2023-10-24 13:27] LABS: Anion Gap 12.4; BUN Creatinine Ratio 13.7; Calcium 9.2 mg/dL (8.5-10.1); Carbon Dioxide 27.1 mmol/L (21.0-32.0); Chloride 104 mmol/L (98-107); Estimated GFR (African America >60 (>=60); Estimated GFR (Non-African Ame >60 (>=60); Glucose 104 mg/dL (74-106); Potassium 3.5 mmol/L (3.5-5.1); Sodium 140 mmol/L (136-145); Troponin I High Sensitivity <4.0 pg/mL (4.0-76.1)
[2023-10-24] MEDS: 0.9 % SODIUM CHLORIDE 1,000 ML 1000 ML IV (13:38)
[2023-10-24] MEDS: DIAZEPAM 10 MG/2 ML SYRINGE 5 MG IV (13:40)
[2023-10-24 13:42] LABS: Influenza Virus A Antigen Negative; Influenza Virus B Antigen Negative; Internal Control Within Normal Limits; SARS-CoV-2 Ag NEGATIVE (NEGATIVE)
--- NOTE | 2023-10-24 13:43 | ED.SYNCOPE1 ---
Documented by User: Estefanía Padilla 10/24/23 15:24 HPI - Syncope General Chief Complaint: Syncope Stated Complaint: FAST HEART RATE/ DIZZINESS POST OP Time Seen by Provider: 10/24/23 13:10 Source: patient Mode of arrival: walk-in Limitations: no limitations History of Present Illness HPI narrative: 43-year-old male presents her with a chief complaint of dizzy lightheadedness. He states he feels like he was going to pass out. Patient states he does have a history of anxiety. Patient has a left arm sling on states he had rotator cuff surgery to weeks ago. He states he became lightheaded and the doctor's office and had vasovagal syncopal event whenever moving his dressings at the doctor's office last week. Patient states over last couple days he's had lightheaded and dizziness today he was driving and felt like he was going to pass out. Patient denies any shortness of breath or chest pain. Left upper extremity Steri-Strips are in place show no signs of infection. Patient's alert and oriented. Patient also admits having history of anxiety and feels that the cyst may be anxiety attacks he is having Causing his symptoms. Related Data Allergies Allergy/AdvReac Type Severity Reaction Status Date / Time No Known Drug Allergies Allergy Verified 10/24/23 12:03 Review of Systems ROS Narrative ROS:All Systems are negative except as noted/marked. PFSH PFSH Social History Smoking status: Never smoker Exam Narrative Exam Narrative: Nurses note and vital signs reviewed and patient is not hypoxic. General: The patient appears well and in no apparent distress. Patient is resting comfortably on cart. Skin: Warm, dry, no pallor noted. There is no rash noted. Head: Normocephalic, atraumatic Eye: Normal conjunctiva, no drainage, EOMI. PERRL Ears, Nose, Mouth, and Throat: oral mucosa is moist. Nares patent. Mouth without vesicles. Ear canals patent. Tm's without Erythema Cardiovascular: Regular Rate and Rhythm Respiratory: Patient is in no distress, no accessory muscle use, lungs are clear to auscultation, no wheezing, rales or rhonchi Back: non-tender, no CVA tenderness bilaterally to percussion. Musculoskeletal:left upper extremity in sling status post rotator cuff repair, wound is clean and dry,The patient has no evidence of calf tenderness, no pitting edema, symmetrical pulses noted bilaterally Neurological: A&O x4, normal speech Psychiatric: Cooperative Constitutional Vital Signs, click to edit/add: Last Vital Signs Temp 98.8 F 10/24/23 12:03 Pulse 85 10/24/23 15:00 Resp 18 10/24/23 15:00 BP 147/84 H 10/24/23 14:30 Pulse Ox 100 10/24/23 15:00 O2 Del Method Room Air 10/24/23 12:03 Course Vital Signs Vital signs: Vital Signs Temperature 98.6 F 10/24/23 11:58 Pulse Rate 91 H 10/24/23 11:58 Respiratory Rate 18 10/24/23 11:58 Blood Pressure 147/97 H 10/24/23 11:58 Pulse Oximetry 98 10/24/23 11:58 Oxygen Delivery Method Room Air 10/24/23 11:58 Temperature 98.8 F 10/24/23 12:03 Pulse Rate 85 10/24/23 15:00 Respiratory Rate 18 10/24/23 15:00 Blood Pressure 147/84 H 10/24/23 14:30 Pulse Oximetry 100 10/24/23 15:00 Oxygen Delivery Method Room Air 10/24/23 12:03 MDM - Syncope MDM Narrative Medical decision making narrative: She presented here chief complaint dizziness and recent history of vasovagal syncope. He is two weeks postoperative rotator cuff repair. He's had his sutures removed Steri-Strips are currently in place and the wounds look well on his left upper extremity. Patient presented here today after feeling like he was going to pass out and dizzy while he was driving. Upon arrival here to the emergency room IV was established CBC troponin EKGs were all performed. All lab work due to within normal limits. Patient has have a history of recent surgery CT scan was performed to rule out any very embolism. Skin was read negative by radiology. Patient was given IV fluids here he was given a dose of Valium in order to be scanned. He states he had a high reading a level and needs Valium or other medication prior to being put through the CT scanner. His workup is completely unremarkable here today. I explained to him that although he may not feel stresses but is healing and may be having more anxious or anxiety attacks and he realizes. Patient looks well this time. I do not believe he has any cardiac involvement. Patient looks well at discharge agrees plan of care. Differential Diagnosis Differential diagnosis: Likely vasovagal syncope, pulmonary embolism and dehydration Medical Records Attestation: I reviewed the patient's medical records. Lab Data Attestation: I reviewed the patient's lab results. Labs: Lab Results 10/24/23 10/24/23 Range/Units 12:16 13:15 WBC 7.1 (4.0-11.0) 10^3/uL RBC 5.02 (4.70-6.10) 10^6/uL Hgb 14.9 (14.0-18.0) g/dL Hct 43.9 (42.0-54.0) % MCV 87.5 (80.0-94.0) fL MCH 29.7 (25.9-34.0) pg MCHC 33.9 (29.9-35.2) g/dL RDW 12.8 (11.0-15.0) % Plt Count 246 (150-450) 10^3/uL MPV 10.0 (9.5-13.5) fL Neut % (Auto) 67.8 (43.0-75.0) % Lymph % (Auto) 23.8 (20.5-60.0) % [place] % (Auto) 6.5 (1.7-12.0) % Eos % (Auto) 1.0 (0.9-7.0) % Baso % (Auto) 0.6 (0.2-2.0) % Neut # (Auto) 4.8 (1.4-6.5) 10^3/uL Lymph # (Auto) 1.7 (1.2-3.8) 10^3/uL [place] # (Auto) 0.5 (0.3-0.8) 10^3/uL Eos # (Auto) 0.1 (0.0-0.7) 10^3/uL Baso # (Auto) 0.0 (0.0-0.1) 10^3/uL Abs Immat Gran (auto) 0.02 (0.00-0.03) 10^3/uL Imm/Tot Granulo (auto) 0.3 (0.0-0.5) % Sodium 140 (136-145) mmol/L Potassium 3.5 (3.5-5.1) mmol/L Chloride 104 (98-107) mmol/L Carbon Dioxide 27.1 (21.0-32.0) mmol/L Anion Gap 12.4 BUN 14.0 (7.0-18.0) mg/dL Creatinine 1.02 (0.70-1.30) mg/dL Est GFR ( Amer) >60 (>=60) Est GFR (Non-Af Amer) >60 (>=60) BUN/Creatinine Ratio 13.7 Glucose 104 (74-106) mg/dL Calcium 9.2 (8.5-10.1) mg/dL Troponin I High Sens <4.0 L (4.0-76.1) pg/mL SARS-CoV-2 (PCR) Negative (NEGATIVE) Influenza Type A Ag Negative Influenza Type B Ag Negative Imaging Data CT scan - chest: Radiologist's impression: SIDDHARTHA OLIVEROS MRN: [id number] date: 1980 Sex: M Assigned Patient Location: ER Current Patient Location: ER Accession/Order Number: [id number] Exam Date: 10/24/2023 13:58 Report Date: 10/24/2023 14:36 At the request of: ESTEFANÍA PADILLA Procedure: CT angio chest EXAMINATION: CT angio chest HISTORY: r/o pe , tachycardia, dizziness COMPARISON: No relevant comparison available. TECHNIQUE: Multi-planar CT images were created with IV contrast. Axial, Coronal, and Sagittal images. Dose reduction techniques were achieved by using automated exposure control and/or adjustment of mA and/or kV according to patient size and/or use of iterative reconstruction technique. FINDINGS: LUNGS: No visible pulmonary disease. PLEURA: No mass, effusion, or pneumothorax. VASCULATURE: Normal postcontrast opacification of the central pulmonary arterial tree with no filling defects VIJAY: No mass or adenopathy. MEDIASTINUM: No mass or adenopathy. CARDIAC: No enlargement, pericardial thickening, or significant calcification. AORTA: No aneurysm or dissection. CHEST WALL: No mass or axillary adenopathy. BONES: No bone lesion or fracture. LIMITED ABDOMEN: No suspicious findings. Limited images of the upper abdomen. OTHER: Negative. IMPRESSION: No central pulmonary embolic disease Electronically authenticated by: MEGHAN COATS Date: 10/24/2023 14:36 ECG Data Attestation: ?I have reviewed the pertinent ECG results. Interpretation: 1205 EKG shows a normal sinus rhythm with a rate of 85 bpm, [place] interval 152 ms, QRS duration 98 ms, no ST elevation or depression no STEMI Discharge Plan Discharge Chief Complaint: Syncope Clinical Impression: Dizziness, Vasovagal syncope Patient Disposition: Home, Self-Care Time of Disposition Decision: 15:03 Condition: Good Instructions: Near Syncope (ED), Lightheadedness (ED), Panic Attack (ED) Stand Alone Forms: Portal Instructions Referrals: Physician,Non-Staff, MD [Primary Care Provider] - 1 week Discharge Date/Time: 10/24/23 15:30 Documented by User: Naldo Alegre MD 10/24/23 20:46 HPI - Syncope General Chief Complaint: Syncope Stated Complaint: FAST HEART RATE/ DIZZINESS POST OP Time Seen by Provider: 10/24/23 13:10 Related Data Allergies Allergy/AdvReac Type Severity Reaction Status Date / Time No Known Drug Allergies Allergy Verified 10/24/23 12:03 PFSH PFSH Social History Smoking status: Never smoker Exam Constitutional Vital Signs, click to edit/add: Last Vital Signs Temp 98.8 F 10/24/23 12:03 Pulse 85 10/24/23 15:00 Resp 18 10/24/23 15:00 BP 147/84 H 10/24/23 14:30 Pulse Ox 100 10/24/23 15:00 O2 Del Method Room Air 10/24/23 12:03 Course Vital Signs Vital signs: Vital Signs Temperature 98.6 F 10/24/23 11:58 Pulse Rate 91 H 10/24/23 11:58 Respiratory Rate 18 10/24/23 11:58 Blood Pressure 147/97 H 10/24/23 11:58 Pulse Oximetry 98 10/24/23 11:58 Oxygen Delivery Method Room Air 10/24/23 11:58 Temperature 98.8 F 10/24/23 12:03 Pulse Rate 85 10/24/23 15:00 Respiratory Rate 18 10/24/23 15:00 Blood Pressure 147/84 H 10/24/23 14:30 Pulse Oximetry 100 10/24/23 15:00 Oxygen Delivery Method Room Air 10/24/23 12:03 MDM - Syncope MDM Narrative Medical decision making narrative: She presented here chief complaint dizziness and recent history of vasovagal syncope. He is two weeks postoperative rotator cuff repair. He's had his sutures removed Steri-Strips are currently in place and the wounds look well on his left upper extremity. Patient presented here today after feeling like he was going to pass out and dizzy while he was driving. Upon arrival here to the emergency room IV was established CBC troponin EKGs were all performed. All lab work due to within normal limits. Patient has have a history of recent surgery CT scan was performed to rule out any very embolism. Skin was read negative by radiology. Patient was given IV fluids here he was given a dose of Valium in order to be scanned. He states he had a high reading a level and needs Valium or other medication prior to being put through the CT scanner. His workup is completely unremarkable here today. I explained to him that although he may not feel stresses but is healing and may be having more anxious or anxiety attacks and he realizes. Patient looks well this time. I do not believe he has any cardiac involvement. Patient looks well at discharge agrees plan of care. I, Dr Alegre, have reviewed the above progress note and course of action in the ER; agree with the above. I have personally seen and evaluated this patient, gone over history and physical, and discussed disposition and treatment plan with the patient. Lab Data Labs: Lab Results 10/24/23 10/24/23 Range/Units 12:16 13:15 WBC 7.1 (4.0-11.0) 10^3/uL RBC 5.02 (4.70-6.10) 10^6/uL Hgb 14.9 (14.0-18.0) g/dL Hct 43.9 (42.0-54.0) % MCV 87.5 (80.0-94.0) fL MCH 29.7 (25.9-34.0) pg MCHC 33.9 (29.9-35.2) g/dL RDW 12.8 (11.0-15.0) % Plt Count 246 (150-450) 10^3/uL MPV 10.0 (9.5-13.5) fL Neut % (Auto) 67.8 (43.0-75.0) % Lymph % (Auto) 23.8 (20.5-60.0) % [place] % (Auto) 6.5 (1.7-12.0) % Eos % (Auto) 1.0 (0.9-7.0) % Baso % (Auto) 0.6 (0.2-2.0) % Neut # (Auto) 4.8 (1.4-6.5) 10^3/uL Lymph # (Auto) 1.7 (1.2-3.8) 10^3/uL [place] # (Auto) 0.5 (0.3-0.8) 10^3/uL Eos # (Auto) 0.1 (0.0-0.7) 10^3/uL Baso # (Auto) 0.0 (0.0-0.1) 10^3/uL Abs Immat Gran (auto) 0.02 (0.00-0.03) 10^3/uL Imm/Tot Granulo (auto) 0.3 (0.0-0.5) % Sodium 140 (136-145) mmol/L Potassium 3.5 (3.5-5.1) mmol/L Chloride 104 (98-107) mmol/L Carbon Dioxide 27.1 (21.0-32.0) mmol/L Anion Gap 12.4 BUN 14.0 (7.0-18.0) mg/dL Creatinine 1.02 (0.70-1.30) mg/dL Est GFR ( Amer) >60 (>=60) Est GFR (Non-Af Amer) >60 (>=60) BUN/Creatinine Ratio 13.7 Glucose 104 (74-106) mg/dL Calcium 9.2 (8.5-10.1) mg/dL Troponin I High Sens <4.0 L (4.0-76.1) pg/mL SARS-CoV-2 (PCR) Negative (NEGATIVE) Influenza Type A Ag Negative Influenza Type B Ag Negative Discharge Plan Discharge Chief Complaint: Syncope Clinical Impression: Dizziness, Vasovagal syncope Patient Disposition: Home, Self-Care Time of Disposition Decision: 15:03 Condition: Good Instructions: Near Syncope (ED), Lightheadedness (ED), Panic Attack (ED) Stand Alone Forms: Portal Instructions Referrals: Physician,Non-Staff, MD [Primary Care Provider] - 1 week Discharge Date/Time: 10/24/23 15:30
[2023-10-25 16:04] LABS: SARS-CoV-2 NAA NOT DETECTED (NOT DETECTE)
== END 2023-10-24 15:30 | disposition home or self-care (01) ==
PROVIDERS: Physician Assistant; Emergency Provider Emergency Medicine
DX: R55 Syncope and collapse (principal); R42 Dizziness and giddiness; F41.9 Anxiety disorder, unspecified; Z20.822 Contact with and (suspected) exposure to COVID-19
CPT/HCPCS: 36415; 71275; 80048; 84484; 85025; 87635; 87798; 87804; 87811; 93005; 96374; 99285; J3360; Q9967

== ENCOUNTER 2023-11-10 08:41 | Outpatient (OUT) | payer OTHER, SELFPAY ==
--- OUTSIDE RECORDS SUMMARY | 2023-11-10 08:49 | XMS_ITS | CCD ---
Author Name Unknown Address [address] [place] [address] Organization [facility] Care Team Providers Care Paste Up Copy Camera Operator Name Role Phone Nitesh CAREY, Yaritza Primary Care Provider SCHILLING, OSMAN Attending Unavailable [...] OSMAN Attending Unavailable SCHILLING, OSMAN Referring Unavailable Nitesh CAREY, Yaritza Primary Care Provider [phone] NIT[address] ., DR YARITZA Patel Primary Care Unavailable MISC, DR ALFORD Admitting Unavailable MISC, DR ALFORD Attending Unavailable Yaritza Dowling MD Primary Care Provider SUSIE IRINA L Referring Unavailable DOWLING, YARITZA Primary Care Unavailable SUSIE, IRINA L Admitting Unavailable SUSIE, IRINA L Attending Unavailable DOWLING, YARITZA Primary Care Unavailable SUSIE, IRINA L Referring Unavailable DANIEL HICKMAN Attending Unavailable SUSIE, IRINA L Referring Unavailable SUSIE, IRINA L Attending Unavailable DOWLING, YARITZA Primary Care Unavailable SUSIE, IRNIA L Referring Unavailable SUSIE, IRINA L Attending Unavailable DOWLING, YARITZA Primary Care Unavailable SUSIE, IRINA L Referring Unavailable SUSIE, IRINA L Attending Unavailable DOWLING, YARITZA Primary Care Unavailable DOWLING, YARITZA Primary Care Unavailable SCHILLING, OSMAN S Referring Unavailable SUSIE, IRINA L Attending Unavailable DOWLING, YARITZA Primary Care Unavailable IRINA RICHARDS Referring Unavailable IRINA RICHARDS Attending Unavailable YARITZA DOWLING Primary Care Unavailable DANIEL HICKMAN Attending Unavailable SELF, SELF Referring Unavailable YARITZA DOWLING E Attending Unavailable Teresa Lau Unavailable Medications Current Medications Medication Drug Class(es) [...] mL injection 4 mL Start: 12-30-2022 End: 12-30-2022 Lidocaine (XYLOCAINE) 10 mg/ mL injection 4 [...] Problem Date Documented Date Episodic/Chronic Anxiety disorders (3 sources) Claustrophobia; Translations: [Claustrophobia] Chronic Cardiac dysrhythmias (1 source) Palpitations Episodic Osteoarthritis (6 sources) Arthritis of left acromioclavicular [...] shoulder, not specified as traumatic] 07-28-2023 Episodic Other screening for suspected conditions (not mental disorders or infectious disease) (1 source) Abnormal electrocardiogram [ECG] [EKG] Episodic Residual codes; unclassified (2 sources) Other specified postprocedural states; Translations: [Other specified postprocedural states] Onset: 10-09-2023 Episodic Residual codes; unclassified (1 source) History of operative procedure on shoulder; Translations: [Other specified postprocedural states] 10-23-2023 Episodic Spondylosis; intervertebral disc disorders; other back problems (1 source) Backache; Translations: [Back pain] Episodic Syncope (1 source) Syncope and collapse Episodic Unclassified (2 sources) MRI Results; Translations: [...] Test Name Value Interpretation Reference Range Facility Consultation Noteon 10-24-19 Consultation Note [id number] 0TIFF [facility] Operative Reporton 3 Operative Report [id number]#1.0 0TIFF [facility] Operative Reporton 3 Operative Report [id number]#1.0 0TIFF [facility] Consultation Noteon 10-01-20 Consultation Note [id number]#1.0 0TIFF [facility] Consultation Noteon 08-12-20 Consultation Note [id number]#1.0 0TIFF [facility] Consultation Noteon 05-27-20 Consultation Note [id number]#1.0 0CD:127 [facility] LARGE JOINT/BURSA INJECTION AND/OR ASPIRATION: L [...] fashion. The patient was prepped with alcohol. [facility] Radiology Study observation (narrative) [facility] Consultation Noteon 02-20-20 23 Consultation Note [id number]#1.0 0CD:127 Normal [facility] LARGE JOINT/BURSA INJECTION AND/OR ASPIRATION: L [...] fashion. The patient was prepped with alcohol. [facility] Radiology Study observation (narrative) [facility] Consultation Noteon 01-02-20 23 Consultation Note [id number] CD:127 [facility] LARGE JOINT/BURSA INJECTION AND/OR ASPIRATION: L glenohumeralon 01-01-2023 Radiology Study observation (narrative) [facility] LARGE JOINT/BURSA INJECTION AND/OR ASPIRATION: L glenohumeralon 12-30-2022 Mu Little, [facility] 01/01/2023 11:09 AM LARGE JOINT/BURSA INJECTION AND/OR [...] fashion. The patient was prepped with alcohol. [facility] LARGE JOINT/BURSA INJECTION AND/OR ASPIRATION: L subacromial bursaon 10-08-2022 Radiology Study observation (narrative) [facility] MR Shoulder - left Kristian Salas 10-07-2022 IMPRESSION: 1. Mild rotator cuff [...] glenohumeral chondrosis. 7. Mild AC joint osteoarthritis. [facility] MR Shoulder - left W contras t IVOrdered By: Drew Sy on 10-07-2022 [facility] Work Phone: MRI SHOULDER LEFT WITH CONTR [...] chondrosis. 7. Mild AC joint osteoarthritis. Normal [facility] MR Shoulder - left W contras t Maritza 10-04-2022 Radiology Study observation (narrative) [facility] RF Shoulder - left Arthrogra [facility] 10-04-2022 IMPRESSION: Uncomplicated intraarticular right shoulder arthrogram [...] There were no immediate complications. RADIOLOGY Radha Mcduffie MD - 10/04/2022 FLUOROSCOPIC-GUIDED RIGHT SHOULDER ARTHROGRAM [...] injection of 14 mL dilute gadolinium-based solution. [facility] Radiology Study observation (narrative) [facility] RF Shoulder - left Arthrogra mOrdered By: Radha Mcduffie on 10-04-2022 [facility] Work Phone: XR FLUORO ARTHROGRAM SHOULDE R LEFTon 10-04-2022 XR FLUORO ARTHROGRAM SHOULDER LEFT FLUOROSCOPIC-GUIDED [...] of 14 mL dilute gadolinium-based solution. Normal [facility] LARGE JOINT/BURSA INJECTION AND/OR [...] fashion. The patient was prepped with alcohol. [facility] LARGE JOINT/BURSA INJECTION AND/OR ASPIRATION: L subacromial bursaon 06-17-2022 Jose Maher ATC 06/17/2022 11:36 AM LARGE JOINT/BURSA INJECTION AND/OR [...] fashion. The patient was prepped with alcohol. [facility] Radiology Study observation (narrative) [facility] UPPER EXTREMITY INJECTION: l eft infraspinatus tendon insertionon 04-17-2022 Jose Maher, JEANNETTE 04/17/2022 1:43 PM UPPER EXTREMITY INJECTION: left [...] fashion. The patient was prepped with Chloraprep. [facility] Radiology Study observation (narrative) [facility] US Unspecified body regionon 04-17-2022 Image Storage This order is to facilitate the storage of the image. [facility] LARGE JOINT/BURSA INJECTION AND/OR ASPIRATION: L subacromial bursaon 04-09-2022 Radiology Study observation (narrative) [facility] LARGE JOINT/BURSA INJECTION AND/OR ASPIRATION: L [...] fashion. The patient was prepped with alcohol. [facility] MR Shoulder - left EDIS schmitz [...] with MRI arthrogram as felt clinically indicated. [facility] Radiology Study observation (narrative) [facility] MR Shoulder - left WO contra stOrdered By: Zack Velásquez on 02-22-2022 [facility] Work Phone: XR Shoulder - left 2 [facility] 02-11-2022 Body surface area Derived from formula 1.99 m2 [employer] Xrays of the left shoulder demonstrating no acute abnormalities. Mild AC joint OA noted. [facility] X-rays, 3 views of t he left shoulder were ordered and interpreted in the presence of the patient by me today. These demonstrate normal mineralization, normal alignment. AHI and CC intervals were within normal limits. There is no evidence of acute osseous abnormality or fracture. The glenohumeral joint demonstrates no evidence of osteoarthrosis. The acromioclavicular joint demonstrates mild evidence of osteoarthrosis. [facility] Radiology Study observation (narrative) [facility] Vital Signs Date Time Vital Sign Value Performing Clinician Facility 10-28-2023 11:00-0500 Body height 182.88 cm Teresa Lau Other [facility] Other 10-28-2023 11:00-0500 Body mass index (BMI) [Ratio] 22.65 kg/m2 Teresa Lau Other [facility] Other 10-28-2023 11:00-0500 Body weight 75.75 kg Teresa Lau Other [facility] Other 10-28-2023 11:00-0500 Diastolic blood pressure 88 mm[Hg] Teresa Thorntonrbacher Other [facility] Other 10-28-2023 11:00-0500 SaO2% (BldA) [Mass fraction] 100 % Teresa Valdezankush Other [facility] Other 10-28-2023 11:00-0500 Systolic blood pressure 138 mm[Hg] Teresa Valdezankush Other [facility] Other 10-23-2023 11:18-0500 Body height 180.3 cm Daniel Hickman [employer] Work Phone: [facility] 10-23-2023 11:18-0500 Body mass index (BMI) [Ratio] 22.32 kg/m2 Daniel Hickman [employer] Work Phone: [facility] 10-23-2023 11:18-0500 Body weight 72.58 kg Daniel Hickman [employer] Work Phone: [facility] 10-09-2023 14:50-0500 Diastolic blood pressure 72 mm[Hg] Irina Richards MD Work Phone: [facility] 10-09-2023 14:50-0500 Heart rate 79 /min Irina Richards MD Work Phone: [facility] 10-09-2023 14:50-0500 Respiratory rate 14 /min Irina Richards MD Work Phone: [facility] 10-09-2023 14:50-0500 SaO2% (BldA) [Mass fraction] 99 % Irina Richards MD Work Phone: [facility] 10-09-2023 14:50-0500 Systolic blood pressure 125 mm[Hg] Irina Richards MD Work Phone: [facility] 10-09-2023 13:50-0500 Body temperature 97.11 [degF] Irina Richards MD Work Phone: [facility] 10-09-2023 08:22-0500 Body height 180.3 cm Irina Richards MD Work Phone: [facility] 09-30-2023 11:08-0500 Body height 182.9 cm Irina Richards MD Work Phone: [facility] 09-30-2023 11:08-0500 Body mass index (BMI) [Ratio] 21.97 kg/m2 Irina Richards MD Work Phone: [facility] 09-30-2023 11:08-0500 Body temperature 98.29 [degF] Irina Richards MD Work Phone: [facility] 09-30-2023 11:08-0500 Body weight 73.48 kg Irina Richards MD Work Phone: [facility] 07-28-2023 08:17-0400 Body height 182.9 cm Irina Richards MD Work Phone: [facility] 07-28-2023 08:17-0400 Body mass index (BMI) [Ratio] 21.97 kg/m2 Irina Richards MD Work Phone: [facility] 07-28-2023 08:17-0400 Body temperature 98.01 [degF] Irina Richards MD Work Phone: [facility] 07-28-2023 08:17-0400 Body weight 73.48 kg Irina Richards MD Work Phone: [facility] 05-26-2023 08:04-0400 Body height 182.9 cm Daniel ACUNA Work Phone: [facility] 05-26-2023 08:04-0400 Body mass index (BMI) [Ratio] 21.97 kg/m2 Daniel ACUNA Work Phone: [facility] 05-26-2023 08:04-0400 Body temperature 97.81 [degF] Daniel Hickman [employer] Work Phone: [facility] 05-26-2023 08:04-0400 Body weight 73.48 kg Daniel Hickman [employer] Work Phone: [facility] 02-18-2023 08:24-0400 Body height 182.9 cm Daniel Hickman APRN[employer] Work Phone: [facility] 02-18-2023 08:24-0400 Body mass index (BMI) [Ratio] 21.97 kg/m2 Daniel Hickman [employer] Work Phone: [facility] 02-18-2023 08:24-0400 Body temperature 97.7 [degF] Daniel Hickman [employer] Work Phone: [facility] 02-18-2023 08:24-0400 Body weight 73.48 kg Daniel Hickman APRN[employer] Work Phone: [facility] 12-30-2022 09:42-0400 Body height 182.9 cm Irina Richards MD Work Phone: [facility] 12-30-2022 09:42-0400 Body mass index (BMI) [Ratio] 21.97 kg/m2 Irina Richards MD Work Phone: [facility] 12-30-2022 09:42-0400 Body temperature 98.6 [degF] Irina Richards MD Work Phone: [facility] 12-30-2022 09:42-0400 Body weight 73.48 kg Irina Richards MD Work Phone: [facility] 11-22-2022 08:15-0500 Body height 182.9 cm Irina Richards MD Work Phone: [facility] 11-22-2022 08:15-0500 Body mass index (BMI) [Ratio] 21.97 kg/m2 Irina Richards MD Work Phone: [facility] 11-22-2022 08:15-0500 Body temperature 98.1 [degF] Irina Richards MD Work Phone: [facility] 11-22-2022 08:15-0500 Body weight 73.48 kg Irina Richards MD Work Phone: [facility] 09-20-2022 07:23-0500 Body height 182.9 cm Osman Schilling MD Work Phone: [facility] 09-20-2022 07:23-0500 Body mass index (BMI) [Ratio] 23.05 kg/m2 Osman Schilling MD Work Phone: [facility] 09-20-2022 07:23-0500 Body weight 77.1 kg Osman Schilling MD Work Phone: [facility] 06-17-2022 08:55-0400 Body height 182.9 cm Osman Schilling MD Work Phone: [facility] 06-17-2022 08:55-0400 Body mass index (BMI) [Ratio] 23.06 kg/m2 Osman Schilling MD Work Phone: [facility] 06-17-2022 08:55-0400 Body weight 77.11 kg Osman Schilling MD Work Phone: [facility] 04-17-2022 09:05-0400 Body height 182.9 cm Osman Schilling MD Work Phone: [facility] 04-17-2022 09:05-0400 Body mass index (BMI) [Ratio] 23.06 kg/m2 Osman Schilling MD Work Phone: [facility] 04-17-2022 09:05-0400 Body weight 77.11 kg Osman Schilling MD Work Phone: [facility] 03-14-2022 09:50-0400 Body height 182.9 cm Osman Schilling MD Work Phone: [facility] 03-14-2022 09:50-0400 Body mass index (BMI) [Ratio] 23.16 kg/m2 Osman Schilling MD Work Phone: [facility] 03-14-2022 09:50-0400 Body weight 77.47 kg Osman Schilling MD Work Phone: [facility] Encounters Encounter Date Encounter Type Care Provider Facility Start: 10-28-2023 End: 10-28-2023 ambulatory Teresa Lau Other [facility] Other Start: 10-28-2023 Office outpatient ne w 20 minutes Teresa Lau [facility] Start: 10-23-2023 End: 10-23-2023 Postop follow up visit related to original px Daniel Hickman [employer] Work Phone: [facility] Comment on above: S/P rotator cuff rep air (Primary Dx); Status post labral repair of shoulder Start: 10-09-2023 End: 10-09-2023 ambulatory IRINA RICHARDS [facility] Start: 10-09-2023 End: 10-09-2023 Subsequent hospital visit by physician Irina Richards MD Work Phone: [facility] Comment on above: Tear of left rotator cuff, unspecified tear extent, unspecified whether traumatic Start: 10-03-2023 ambulatory IRINA RICHARDS [facility] Start: 10-03-2023 Encounter for other preprocedural examination IRINA RICHARDS [facility] Start: 09-30-2023 [facility] IRINA RICHARDS [facility] Start: 09-30-2023 End: 09-30-2023 Office outpatient visit 40 minutes Irina Richards MD Work Phone: [facility] Comment on above: Tear of left rotator cuff, unspecified tear extent, unspecified whether traumatic (Primary Dx); Superior labrum rxdrkaxe-gk-kpymvqiln (SLAP) tear of left shoulder; Impingement syndrome of left shoulder; Biceps tendonitis on left; Arthritis of left acromioclavicular joint Start: 07-28-2023 [facility] Start: 07-28-2023 End: 07-28-2023 Office outpatient visit 15 minutes Irina Richards MD Work Phone: [facility] Comment on above: Tear of left rotator cuff, unspecified tear extent, unspecified whether traumatic (Primary Dx); Superior labrum iltrtczl-es-tibytgxuk (SLAP) tear of left shoulder; Impingement syndrome of left shoulder; Biceps tendonitis on left; Arthritis of left acromioclavicular joint Start: 05-26-2023 ambulatory [facility] Start: 05-26-2023 End: 05-26-2023 Office outpatient visit 25 minutes Daniel Hickman APRN[employer] Work Phone: [facility] Comment on above: Impingement syndrome of left shoulder (Primary Dx); Superior labrum akfolopk-ny-dfihtcrdx (SLAP) tear of left shoulder; Biceps tendonitis on left; Arthritis of left acromioclavicular joint Start: 02-18-2023 ambulatory [facility] Start: 02-18-2023 End: 02-18-2023 Office outpatient visit 25 minutes Daniel Hickman APRN[employer] Work Phone: [facility] Comment on above: Impingement syndrome of left shoulder (Primary Dx) Start: 01-01-2023 ambulatory YARITZA Patel [facility] Facility:[facility] Start: 12-30-2022 ambulatory [facility] Start: 12-30-2022 End: 12-30-2022 Office outpatient visit 25 minutes Irina Richards MD Work Phone: [facility] Comment on above: Superior labrum ante mxlt-wg-sidfmedre (SLAP) tear of left shoulder (Primary Dx); Biceps tendonitis on left Start: 11-21-2022 End: 11-22-2022 Office outpatient new 30 minutes Irina Richards MD Work Phone: [facility] Comment on above: Superior labrum ante pkih-ro-rpgswrbhc (SLAP) tear of left shoulder (Primary Dx); Impingement syndrome of left shoulder; Biceps tendonitis on left; Arthritis of left acromioclavicular joint Start: 11-21-[address] [facility] Start: 11-15-2022 End: 11-16-[address] YARITZA DOWLING . Facility: Start: 10-10-2022 ambulatory [facility] Start: 10-04-2022 ambulatory [facility] Start: 10-04-2022 End: 10-04-2022 Subsequent hospital visit by physician Osman Schilling MD Work Phone: [facility] Comment on above: Arrived Start: 09-20-2022 ambulatory [facility] Start: 09-20-2022 End: 09-20-2022 Office outpatient visit 15 minutes Osman Schilling MD Work Phone: [facility] Comment on above: Superior labrum ante yoyc-lz-tdenpghha (SLAP) tear of left shoulder (Primary Dx); Infraspinatus tendonitis, left; Claustrophobia Start: 06-17-2022 ambulatory [facility] Start: 06-17-2022 End: 06-17-2022 Office outpatient visit 15 minutes Osman Schilling MD Work Phone: [facility] Comment on above: Infraspinatus tendon itis, left (Primary Dx) Start: 04-17-2022 ambulatory [facility] Start: 04-17-2022 End: 04-17-2022 Subsequent hospital visit by physician Osman Schilling MD Work Phone: [facility] Procedure Images Comment on above: Arrived Start: 04-17-2022 End: 04-17-2022 Patient encounter procedure [facility] Comment on above: Infraspinatus tendon itis, left (Primary Dx) Start: 03-14-2022 [facility] Start: 03-14-2022 End: 03-14-2022 Office outpatient visit 25 minutes Osman Schilling MD Work Phone: [facility] Comment on above: Infraspinatus tendon itis, left (Primary Dx) Start: 02-22-2022 End: 02-22-2022 Subsequent hospital visit by physician Osman Schilling MD Work Phone: [facility] MRI Comment on above: Arrived Start: 02-11-2022 ambulatory YARITZA [facility] Start: 02-11-2022 End: 02-11-2022 Subsequent hospital visit by physician Osman Schilling MD Work Phone: [facility] Diagnostic Radiology [facility] Comment on above: Arrived Procedures Date Procedure Procedure Detail Performing Clinician Start: 05-26-2023 Arthrocentesis aspir&/inj major jt/bursa w/o us Daniel Hickman [employer] Work Phone: Start: 02-18-2023 Arthrocentesis aspir&/inj major jt/bursa w/o us Daniel Hickman [employer] Work Phone: Start: 12-30-2022 Arthrocentesis aspir&/inj major [...] shoulder S/P rotator cuff repair Daniel Hickman [employer] Work Phone: Plan of Treatment Date Care Activity Detail Author Start: 11-27-2028 Tetanus vaccination [facility] Start: 11-24-2023 End: 11-24-2023 Patient encounter procedure 11/24/2023 1:40 PM EST Office Visit [facility] [address] [place] [id number] Daniel Hickman, [employer] [address] [place] [id number] [facility] Start: 10-27-2023 End: 10-27-2023 Patient encounter procedure 10/27/2023 11:00 AM EST Office Visit [facility] [address] [place] [address] Daniel Hickman, [employer] [address] [place] [address] [facility] Start: 10-09-2023 End: 10-09-2023 Admission to same day surgery center 10/09/2023 10:30 AM EST - 10/09/2023 12:[address] [facility] [id number] Irina Richards MD [address] [place] [id number] ARTHROSCOPY SHOULDER W/ ROTATOR CUFF REPAIR [facility] Comment on above: ARTHROSCOPY SHOULDER W/ ROTATOR CUFF REPAIR Start: 10-09-2023 End: 10-09-2023 Arthroscopy shoulder biceps tenodesis [facility] Start: 10-09-2023 End: 10-09-2023 Arthroscopy shoulder distal claviculectomy [facility] Start: 10-09-2023 End: 10-09-2023 Arthroscopy shoulder rotator cuff repair [facility] Start: 10-09-2023 End: 10-09-2023 Arthroscopy shoulder w/coracoacrm ligmnt release [facility] Start: 10-09-2023 Subsequent hospital visit by physician 10/09/2023 10:30 AM EST Hospital Encounter [facility] [address] [place] [address] Irina Richards MD [address] [place] [id number] Tear of left rotator cuff, unspecified tear extent, unspecified whether traumatic [facility] Comment on above: Tear of left rotator cuff, unspecified tear extent, unspecified whether traumatic Start: 10-03-2023 End: 10-03-2023 Admission to establishment 10/03/2023 11:00 AM EST Pre-Operative Nurse Assessment [facility] [address] [place] [address] [facility] Start: 09-25-2023 End: 09-25-2023 Patient encounter procedure 09/25/2023 8:00 AM EST Office Visit [facility] [address] [place] [id number] Daniel Hickman, [employer] [address] [place] [address] [facility] Start: 07-28-2023 End: 07-28-2023 Patient encounter procedure 07/28/2023 8:00 AM EDT Office Visit [address] [address] Irina Richards MD [address] [place] [id number] [facility] Start: 06-20-2023 COVID-19 VACCINE ( season) COVID-19 VACCINE ( season) [facility] Start: 06-20-2023 COVID-19 VACCINE ( season) COVID-19 VACCINE ( season) [facility] Start: 06-20-2023 Influenza vaccination INFLUENZA VACC INE (#1) [facility] Start: 05-26-2023 End: 05-26-2023 Patient encounter procedure 05/26/2023 Office Visit Orthopaedics Daniel Hickman, [employer] [address] [place] [phone] [facility] Start: 03-31-2023 End: 03-31-2023 Patient encounter procedure 03/31/2023 Office Visit Orthopaedics Irina Richards MD [address] [place] [address], [place] [address] [facility] Start: 12-30-2022 End: 12-30-2022 Patient encounter procedure 12/30/2022 Office Visit Orthopaedics Irina Richards MD [address] [place] [address], [place] [address] [facility] Start: 10-10-2022 End: 10-10-2022 Patient encounter procedure 10/10/2022 Office Visit Orthopaedics Osman Schilling MD [address] [place] [address] [place] [address] [facility] Start: 06-20-2022 Influenza vaccination INFLUENZA VACC INE (#1) [facility] Start: 06-17-2022 End: 06-17-2022 Patient encounter procedure 06/17/2022 Office Visit Orthopaedics Osman Schilling MD [address] [place] [address] [place] [address] [facility] Start: 04-17-2022 End: 04-17-2022 Patient encounter procedure 04/17/2022 Office Visit Orthopaedics Osman Schilling MD [address] [place] [address] [place] [address] [facility] Start: 2020 Fasting lipid profile LIPID SCREENIN G [facility] Start: 2020 Lipid panel LIPID SCREENING [facility] Start: 1999 Third diphtheria, tetanus and acellular pertussis (DTaP) vaccination TDAP (ADULT) [facility] Start: 1998 Tetanus vaccination TETANUS [facility] Start: 1995 HIV screening HIV SCREENING DISCUSSION [facility] Start: 1985 COVID-19 VACCINE (#1) COVID-19 VACCI NE (#1) [facility] Start: 1985 COVID-19 VACCINE (1) COVID-19 VACCIN E (1) [facility] Start: 1980 COVID-19 VACCINE (#1) COVID-19 VACCI NE (#1) [facility] Start: 1980 Hepatitis C antibody , confirmatory test HEPATITIS C VIRUS SCREENING [facility] Start: 1980 Hepatitis C screening HEPATITI S C VIRUS SCREENING [facility] MR Shoulder - left W contrast IV MRI SHOULDER LEFT WITH CONTRAST Imaging Routine Superior labrum mwyssdof-xh-rbumbhhsy (SLAP) tear of left shoulder 10/04/2022 10:47 AM EST [facility] Therapeutic px 1/> a reas each 15 min exercises MI THERAPEUTIC EXERCISES, EA 15 MIN MI Charge Routine Infraspinatus tendonitis, left Ordered: 03/14/2022 [facility] Comment on above: Ordered: 03/14/2022 Immunizations Immunization Date Immunization Notes Care Provider Fa cruz 07-12-2022 influenza virus vaccine, unspecified formulation Daniel Hickman APRN-CHIEF ENGINEER PRODUCTION Work Phone: [facility] 07-25-2021 influenza virus vaccine, unspecified formulation Osman Schilling MD Work Phone: [facility] Payers Date Payer Category Payer Unknown PRE PAID ELECTIV E SELF PAY PRE PAID ELECTIVE SELF PAY [id number] 2022-Present [id number] 2021 Private Health Insurance [employer]ECKA MANN [id number] 2021-Present [address] [place] [address] [id number] [id number] 1980 Unknown [id number] 2.16.840.1.593185.3.579. 2.983 1980 Unknown [id number] 2.16.840.1.541525.3.579. 2.983 1980 Unknown [id number] 2.16.840.1.743327.3.579. 2.983 1980 Unknown [id number] 2.16.840.1.803498.3.579. 2.983 1980 Unknown [id number] 2.16.840.1.859999.3.579. 2.983 1980 Unknown [id number] 2.16.840.1.215548.3.579. 2.983 1980 Unknown [id number] 2.16.840.1.991264.3.579. 2.983 1980 Unknown [id number] 2.16.840.1.906802.3.579. 2.983 1980 Unknown [id number] 2.16.840.1.282522.3.579. 2.593 1980 Unknown [id number] 2.16.840.1.432182.3.579. 2.983 1980 Unknown [id number] 2.16.840.1.962068.3.579. 2.983 1980 Unknown [id number] 2.16.840.1.220928.3.579. 2.983 1980 Unknown [id number] 2.16.840.1.563798.3.579. 2.983 1980 Unknown [id number] 2.16.840.1.097833.3.579. 2.983 1980 Unknown [id number] 2.16.840.1.543129.3.579. 2.983 1980 Unknown [id number] 2.16.840.1.530052.3.579. 2.983 1980 Unknown [id number] 2.16.840.1.179576.3.579. 2.983 1980 Unknown [id number] 2.16.840.1.654809.3.579. 2.727 1959 Private Health Insurance [id number] Private Health Insurance [id number] 2.16.840.1.287423.19 Self-pay Social History Date Type Detail Facility Start: 02-11-2022 Tobacco smoking stat [facility] Never smoked tobacco [facility] Start: 02-11-2022 Tobacco use and exposure Smokeless tobacco non-user [facility] Start: 02-11-2022 End: 10-23-2023 Alcohol intake Current drinker of alcohol (finding) [facility] Start: 02-11-2022 End: 10-23-2023 Alcohol intake [facility] Start: 1980 Sex Assigned At Not on file [facility] Start: 10-10-2022 Alcohol Comment occasionally [facility] Start: 05-26-2023 End: 10-23-2023 Tobacco use panel [facility] Medical Equipment Procedure Code Equipment Code Equipment Origin al Text Equipment Identifier Dates Speedbridge Kit W/Preloaded [employer] - [id number] Start: 10-09-2023 Clinical Notes 03-14-2022 to 10-28-2023 Note Date & Type Note Facility 10-28-2023 Evaluation note Encounter Date Diagnosis Assessment Notes Oct, Syncope, unspecified syncope type (ICD-10 - R55) The patient was seen today for ER/Urgent Care follow-up. All available records were reviewed and discussed with the patient. All new medications prescribed were reviewed. Any additional changes are noted above. Discussed symptoms with patient due to abnormal EKG would recommend follow-up with holter monitor and echocardiogram to rule out caridac casue. Will refer to cardiology as needed. Will call with results and further recommendations. Oct, Palpitations (ICD-10 - R00.2) Oct, Abnormal EKG (ICD-10 - R94.31) Oct, Anxiety (ICD-10 - F41.9) Notes that he does have history of anxiety, discussed that would like to rule out cardiac cause prior to ruling that his symptoms above are related to anxiety. pt verbalizes understanding and agrees to plan of care. [employer] [facility] Other 01-04-2024 History of Present illness Narrative* Daniel Hickman, BERNIE-CHIEF ENGINEER PRODUCTION - 10/23/2023 11:30 AM EST Orthopedics and Sports Medicine Chief Complaint Patient [...] but errors may occur documented in this [facility]12-21-2023 Nurse Note* Kelli June RN - 10/09/2023 2:54 PM EST Pt discharged to car in stable condition. Pt has personal belongings and discharge instructions. Care released to family at this time. * Kelli June RN - 10/09/2023 2:47 PM EST Pt ambulated to bathroom with standby assist. Pt voided. Pt ambulated back to room. * Kelli June RN - 10/09/2023 2:47 PM EST Pt and family member provided with verbal and written discharge instructions. Pt and family verbalize understanding and deny having questions. No further education needed. * Mariangel Rosenbaum RN - 10/09/2023 1:49 PM EST [facility] in stable condition. Report given to LETI Silva. Cart left in locked and lowest position with side rails up x2. Snack and call light given to patient. Monitors andalarms on and attached to patient. * Mague Begum RN - 10/09/2023 1:28 PM EST Patient taken to PACU via cart with this RN and CASE PACKER AND SEALER. Report given to LETI August. * Gina Mg RN - 10/09/2023 11:07 AM EST Pt remains in stable condition post supraclavicular nerve block. Pt denies numbness around lips, ringing in ears, and metallic taste in mouth. Pt answers questions appropriately. * Gina Mg RN - 10/09/2023 10:37 AM EST Supraclavicular nerve block completed by Dr. Loredo. Pt denies numbness around lips, ringing in ears,and metallic taste in mouth. Pt answers questions appropriately. Pt remains in stable condition. Pre and post block finishing wire sawyer strips on chart. Ultrasound record on chart. All sharps accounted for by CASE PACKER AND SEALER. * Gina Mg RN - 10/09/2023 10:30 AM EST Supraclavicular nerve block started at this time by Dr. Loredo Pt is lying on back with left shoulderexposed. Pt remains in stable condition. Pt answers questions appropriately. documented in this [facility] [employer] [id number] Nurse Surgical operation note* Kelli June RN - 10/09/2023 2:54 PM EST Pt discharged to car in stable condition. Pt has personal belongings and discharge instructions. Care released to family at this time. [facility] [employer] [id number] Nurse Surgical operation note* Kelli June RN - 10/09/2023 2:47 PM EST Pt ambulated to bathroom with standby assist. Pt voided. Pt ambulated back to room. [facility] [employer] [id number] Nurse Surgical operation note* Kelli June RN - 10/09/2023 2:47 PM EST Pt and family member provided with verbal and written discharge instructions. Pt and family verbalize understanding and deny having questions. No further education needed. [facility]12-21-2023 Nurse Surgical operation note* Mariangel Rosenbaum RN - 10/09/2023 1:49 PM EST [facility] in stable condition. Report given to LETI Silva. Cart left in locked and lowest position with side rails up x2. Snack and call light given to patient. Monitors andalarms on and attached to patient. [facility]12-21-2023 Nurse Surgical operation note* Mague Begum RN - 10/09/2023 1:28 PM EST Patient taken to PACU via cart with this RN and CASE PACKER AND SEALER. Report given to LETI August. [facility]12-21-2023 Hospital Discharge instructions* Discharge Instructions* Kelli June RN - 10/09/2023 1:19 PM [...] by your anesthesia doctor (anesthesiologist) or nurse cutter grinder (CASE PACKER AND SEALER). This discharge instruction sheet was designed to [...] where the catheter is placed, your fingers ortoes may feel fat, numb, or like pins [...] mean it isn t working. You may placea dressing at the catheter site, on top [...] ears, blurred vision, mouth or tongue numbness, ora metallic taste. You might feel nervous or [...] and ask for the House Charge Nurse/PCC ([facility] [phone] .) Ask them to call the anesthesiologist or CASE PACKER AND SEALER air conditioning unit assembler. Your call will be returned. Anesthesia Precautions & Expectations: After anesthesia, rest for [address], drink alcoholic beverages or make any important decisions during this time. General anesthesia may cause a sore throat, jaw discomfort or muscle aches. These symptoms can last for one or two days. [facility] Postoperative evaluation and management note* Brief Op Note - Daniel Hickman APRN-CHIEF ENGINEER PRODUCTION - 10/09/2023 1:14 PM EST Siddhartha Casanova ([id number]) PRE OPERATIVE DIAGNOSIS Tear of left rotator cuff, unspecified tear extent, unspecified whether traumatic [M75.102] Superior labrum bmkbrwjn-ip-ukbvnnkch (SLAP) tear of left shoulder [S43.432A] Impingement syndrome of left shoulder [M75.42] Biceps tendonitis, left [M75.22] Arthritis of left acromioclavicular joint [M19.012] POST OPERATIVE DIAGNOSIS Post-Op Diagnosis Codes: * Tear of left rotator cuff, unspecified tear extent, unspecified whether traumatic [M75.102] * Superior labrum wrsgdlyl-uf-uewuhhybc (SLAP) tear of left shoulder [S43.432A] * [...] ANESTHESIOLOGIST Anesthesiologist: Ilir Loredo DO SURGICAL STAFF Straight Pin Making Machine Operator: Mague Begum RN; Gina Bañuelos RN Nurse Practitioner: ARMAND Conley Scrub Person: Malachi Gilbert Bar Turner: Mu Little ATC COMPLICATIONS None ESTIMATED BLOOD LOSS Minimal SPECIMENS No specimen sent * No specimens in log * ARMAND Conley October 09, 2023 1:14 PM [facility]12-21-2023 Miscellaneous Notes* Brief Op Note - ARMAND Conley - 10/09/2023 1:14 PM EST Siddhartha Jefferson Edilberto ([id number]) PRE OPERATIVE DIAGNOSIS Tear of left rotator cuff, unspecified tear extent, unspecified whether traumatic [M75.102] Superior labrum dmofyfav-aw-bpwsfhskn (SLAP) tear of left shoulder [S43.432A] Impingement syndrome of left shoulder [M75.42] Biceps tendonitis, left [M75.22] Arthritis of left acromioclavicular joint [M19.012] POST OPERATIVE DIAGNOSIS Post-Op Diagnosis Codes: * Tear of left rotator cuff, unspecified tear extent, unspecified whether traumatic [M75.102] * Superior labrum rpdtgzkt-pi-ldqtdizoc (SLAP) tear of left shoulder [S43.432A] * [...] ANESTHESIOLOGIST Anesthesiologist: Ilir Loredo DO SURGICAL STAFF Straight Pin Making Machine Operator: Mague Begum RN; Gina Bañuelos RN Nurse Practitioner: ARMAND Conley Scrub Person: Malachi Gilbert Bar Turner: Mu Little ATC COMPLICATIONS None ESTIMATED BLOOD LOSS Minimal SPECIMENS No specimen sent * No specimens in log * ARMAND Conley October 09, 2023 1:14 PM * Therapy Note - Keena Guo OT - 10/09/2023 9:23 AM EST Time In: 924 Time Out: 954 Subjective: [...] to dress UE. Pt educated on pain andedema control via icing and positioning. Pt was given a written HEP and each exercise was explainedand demonstrated. Pt instructed to practice exercises pre-operatively. Pt educated on starting OP th erapy following surgery. Pt plans to go to OP therapy at [facility]. Pt educated on safety with mobility post-op. Pt with no further questions at this time, and reports understanding of all information presented. Goals for pre-operative OT visit: 1. Pt will report understanding of all post-op precautions. 2. Pt will demonstrate understanding of how to perform self-care following post- op precautions. 3. Pt will demonstrate understanding of post-op HEP. All goals met at this time. documented in this [facility]12-21-2023 Nurse Surgical operation note* Gina Mg RN - 10/09/2023 11:07 AM EST Pt remains in stable condition post supraclavicular nerve block. Pt denies numbness around lips, ringing in ears, and metallic taste in mouth. Pt answers questions appropriately. [facility]12-21-2023 Nurse Surgical operation note* Gina Mg RN - 10/09/2023 10:37 AM EST Supraclavicular nerve block completed by Dr. Loredo. Pt denies numbness around lips, ringing in ears,and metallic taste in mouth. Pt answers questions appropriately. Pt remains in stable condition. Pre and post block finishing wire sawyer strips on chart. Ultrasound record on chart. All sharps accounted for by CASE PACKER AND SEALER. [facility] [employer] [id number] Nurse Surgical operation note* Gina Mg RN - 10/09/2023 10:30 AM EST Supraclavicular nerve block started at this time by Dr. Loredo Pt is lying on back with left shoulderexposed. Pt remains in stable condition. Pt answers questions appropriately. [facility] [employer] [id number] Progress note* Therapy Note - Keena Guo OT - 10/09/2023 9:23 AM EST Time In: 924 Time Out: 954 Subjective: [...] to dress UE. Pt educated on pain andedema control via icing and positioning. Pt was given a written HEP and each exercise was explainedand demonstrated. Pt instructed to practice exercises pre-operatively. Pt educated on starting OP th erapy following surgery. Pt plans to go to OP therapy at [facility]. Pt educated on safety with mobility post-op. Pt with no further questions at this time, and reports understanding of all information presented. Goals for pre-operative OT visit: 1. Pt will report understanding of all post-op precautions. 2. Pt will demonstrate understanding of how to perform self-care following post- op precautions. 3. Pt will demonstrate understanding of post-op HEP. All goals met at this time. [facility]12-12-2023 History of Present illness Narrative* Mu Little, JEANNETTE - 09/30/2023 11:30 AM EST Chief Complaint Patient presents with Shoulder Pain Left shoulder - Patient states that the shoulder pain has been getting pretty severe and would liketo proceed with surgical intervention. HPI: Patient presents [...] surgical options as they are no longer abl e to function on a daily basis as [...] - Regular. Heart sounds - Normal S1, NormalS2. Extra sounds - None. Murmurs - None. Abdomen Normal Inspection - Normal. No abdominal tenderness. Abdomen * Auscultation - normal bowel sounds. Anterior palpation - no guarding. Skin * Inspection - General inspection: no rashes. Detailed inspection - Visual lesions: none. Rash- Description: none. Back/Spine Normal Lateral - No Kyphosis. Flexion - Normal. Extension - Normal. Back/Spine Comments negative kidney percussion Neurological Normal Level of consciousness - Normal. Orientation - Normal. Memory - Normal. Balance& gait - Normal. Hand dominance - Right-handed. Psychiatric Normal Orientation - Oriented to time, place, person & situation. left Shoulder Exam Inspection: No swelling. No atrophy. No deformity. ROM: FF 170/180, Abd: 170/180, IR L4, ER 80/80. No scapular dyskinesia. Labral Click present Strength: Supraspinatus 5-/5 with pain, ER 5/5, Internal Rotation 5/5 Impingement signs: Hawkin's test:Positive, Neer's Sign:Positive Apprehension: Negative Olathe's test: Exquisitely Positive Biceps tenderness: Positive Speed's test: Positive,Yergason's test:Not Tested/Assessed AC tenderness: Positive Crossbody Adduction: Positive Distally neurovascular intact with 2+ radial pulses and full sensation in R/U/M/axillary nerve distribution. Assessment: ICD-10-CM 1. Tear of left rotator cuff, unspecified tear extent, unspecified whether traumatic M75.102 2. Superior labrum vcyuvyse-ia-ejwzumxua (SLAP) tear of left shoulder S43.432A 3. [...] as well as low to intermediate grade glenohumeralarthritis. He shows signs of this on exam as well. We have discussed options today with the patientfrom conservative to surgical. As his symptoms have continued to worsen we are offering surgery. [facility] offering him a left shoulder arthroscopy, possible [...] pain but may not get rid of allthe pain they are experiencing. At this time, [...] and October 04 MRI day of surgery * Irina Richards MD - 09/30/2023 11:30 AM EST Chief Complaint Patient presents with Shoulder Pain Left shoulder - Patient states that the shoulder pain has been getting pretty severe and would liketo proceed with surgical intervention. HPI: Patient presents [...] surgical options as they are no longer abl e to function on a daily basis as [...] - Regular. Heart sounds - Normal S1, NormalS2. Extra sounds - None. Murmurs - None. Abdomen Normal Inspection - Normal. No abdominal tenderness. Abdomen * Auscultation - normal bowel sounds. Anterior palpation - no guarding. Skin * Inspection - General inspection: no rashes. Detailed inspection - Visual lesions: none. Rash- Description: none. Back/Spine Normal Lateral - No Kyphosis. Flexion - Normal. Extension - Normal. Back/Spine Comments negative kidney percussion Neurological Normal Level of consciousness - Normal. Orientation - Normal. Memory - Normal. Balance& gait - Normal. Hand dominance - Right-handed. Psychiatric Normal Orientation - Oriented to time, place, person & situation. left Shoulder Exam Inspection: No swelling. No atrophy. No deformity. ROM: FF 170/180, Abd: 170/180, IR L4, ER 80/80. No scapular dyskinesia. Labral Click present Strength: Supraspinatus 5-/5 with pain, ER 5/5, Internal Rotation 5/5 Impingement signs: Hawkin's test:Positive, Neer's Sign:Positive Apprehension: Negative Olathe's test: Exquisitely Positive Biceps tenderness: Positive Speed's test: Positive,Yergason's test:Not Tested/Assessed AC tenderness: Positive Crossbody Adduction: Positive Distally neurovascular intact with 2+ radial pulses and full sensation in R/U/M/axillary nerve distribution. Assessment: ICD-10-CM 1. Tear of left rotator cuff, unspecified tear extent, unspecified whether traumatic M75.102 2. Superior labrum lkxjispk-vy-tmyjukjrr (SLAP) tear of left shoulder S43.432A 3. [...] as well as low to intermediate grade glenohumeralarthritis. He shows signs of this on exam as well. We have discussed options today with the patientfrom conservative to surgical. As his symptoms have continued to worsen we are offering surgery. [facility] offering him a left shoulder arthroscopy, possible [...] pain but may not get rid of allthe pain they are experiencing. At this time, [...] diagnosis and developed a plan of care atthis visit. I have reviewed the note following the visit and have add edits as appropriate to my evaluation and plan of care. Irina Richards MD documented in this [facility]10-09-2023 History of Present illness Narrative* Mu Little, ATC - 07/28/2023 8:00 AM EDT Chief Complaint Patient presents with Shoulder Pain Left shoulder - Received SA injection on 05/26/23. Patient states that the injection only helped withthe pain for around 6 weeks. Patient would [...] surgical options as they are no longer abl e to function on a daily basis as they once could. To recap previous visit: He presents for left shoulder pain follow up. He received a left subacromial injection on 02/18/23. He states the injection provided great relief until approximately 2 weeks ago. His pain has returned and is starting to interfere with daily activities and has been progressively worsening. As his painhas returned, he would like to have a [...] signs: Hawkin's test:Positive, Neer's Sign:Positive Apprehension: Negative Olathe's test: Exquisitely Positive Biceps tenderness: Positive Speed's test: Positive,Yergason's test:Not Tested/Assessed AC tenderness: Positive Crossbody Adduction: Positive Distally neurovascular intact with 2+ radial pulses and full sensation in R/U/M/axillary nerve distribution. Assessment: ICD-10-CM 1. Tear of left rotator cuff, unspecified tear extent, unspecified whether traumatic M75.102 2. Superior labrum mzuchzyf-xw-ucxikvzkw (SLAP) tear of left shoulder S43.432A 3. [...] as well as low to intermediate grade glenohumeralarthritis. He shows signs of this on exam as well. We have discussed options today with the patientfrom conservative to surgical. At this time he [...] and October 04 MRI day of surgery * Irina Richards MD - 07/28/2023 8:00 AM EDT Chief Complaint Patient presents with Shoulder Pain Left shoulder - Received SA injection on 05/26/23. Patient states that the injection only helped withthe pain for around 6 weeks. Patient would [...] surgical options as they are no longer abl e to function on a daily basis as they once could. To recap previous visit: He presents for left shoulder pain follow up. He received a left subacromial injection on 02/18/23. He states the injection provided great relief until approximately 2 weeks ago. His pain has returned and is starting to interfere with daily activities and has been progressively worsening. As his painhas returned, he would like to have a [...] signs: Hawkin's test:Positive, Neer's Sign:Positive Apprehension: Negative Olathe's test: Exquisitely Positive Biceps tenderness: Positive Speed's test: Positive,Yergason's test:Not Tested/Assessed AC tenderness: Positive Crossbody Adduction: Positive Distally neurovascular intact with 2+ radial pulses and full sensation in R/U/M/axillary nerve distribution. Assessment: ICD-10-CM 1. Tear of left rotator cuff, unspecified tear extent, unspecified whether traumatic M75.102 2. Superior labrum rxlbvzuq-qf-dtscbnqsb (SLAP) tear of left shoulder S43.432A 3. [...] as well as low to intermediate grade glenohumeralarthritis. He shows signs of this on exam as well. We have discussed options today with the patientfrom conservative to surgical. At this time he [...] diagnosis and developed a plan of care atthis visit. I have reviewed the note following the visit and have add edits as appropriate to my evaluation and plan of care. Irina Richards MD [facility] History of Present illness Narrative* Daniel Hickman APRN-CHIEF ENGINEER PRODUCTION - 05/26/2023 8:00 AM EDT Chief Complaint Patient presents with Shoulder Pain Left shoulder - Received left SA injection on 02/18/23. Patient states that the injection helped withthe pain until 2 weeks ago when the [...] and has been progressively worsening. As his painhas returned, he would like to have a repeat injection today. To recap previous visit: he presents for left shoulder pain fall. He received a left linear injection on 12/30/22. He states that he didn't get much relief from the injection. Pain is along the lateral aspect of the shoulder.Pain worsens with range of motion at shoulder [...] signs: Hawkin's test:Positive, Neer's Sign:Positive Apprehension: Negative Olathe's test: Positive Biceps tenderness: Negative Speed's test: Negative,Yergason's test:Not Tested/Assessed AC tenderness: Negative Crossbody Adduction: Negative Distally neurovascular intact with 2+ radial pulses and full sensation in R/U/M/axillary nerve distribution. Assessment: ICD-10-CM 1. Impingement syndrome of left shoulder M75.42 2. Superior labrum qwqmxawc-zg-wzvlhjprn (SLAP) tear of left shoulder S43.432A 3. [...] options today with the patient from conservative tosurgical. He has failed a glenohumeral injection. Wewill proceed with a repeat left subacromial injection today as he previously received good relief. He will follow up with Dr. Richards in 3-4 monthsfor repeat evaluation. Call with any questions or concerns in the meantime. He will follow up in [address] Richards to further discuss surgical intervention. * ARMAND Conley - 05/26/2023 8:00 AM EDTAssociated Order(s): LARGE JOINT/BURSA INJECTION AND/OR ASPIRATION: L [...] was prepped with alcohol. documented in this [facility]05-02-2023 History of Present illness Narrative* ARMAND Conley - 02/18/2023 8:40 AM EDT Chief Complaint Patient presents with Shoulder Pain Left shoulder pain, pt requesting SA injection GH received on 12-30-22. Pt states that he didn't getmuch if any relief and would like to try previous injection. HPI: he presents for left shoulder pain fall. He received a left linear injection on 12/30/22. He states that he didn't get much relief from the injection. Pain is along the lateral aspect of the shoulder.Pain worsens with range of motion at shoulder [...] at an indoor skydiving facility and grabbed nahum while flipping over and injured the left [...] signs: Hawkin's test:Positive, Neer's Sign:Positive Apprehension: Negative Olathe's test: Positive Biceps tenderness: Negative Speed's test: [...] options today with the patient from conservative tosurgical. As he has failed a glenohumeral injection, we will proceed with a left subacromial injection today. He will follow up with Dr. Richards in 3-4 months for repeat evaluation. Call with any questions or concerns in the meantime. * ARMAND Conley - 02/18/2023 8:40 AM EDTAssociated Order(s): LARGE JOINT/BURSA INJECTION AND/OR ASPIRATION: L [...] was prepped with alcohol. documented in this [facility]03-13-2023 History of Present illness Narrative* Mu Little, ATC - 12/30/2022 10:00 AM EDT Chief Complaint Patient presents with Shoulder Pain Left shoulder pain, SA injection received on 09-20-23 with Mir. Pt states that he is still havingsimilar symptoms and requesting injection today, last visit [...] at an indoor skydiving facility and grabbed nahum while flipping over and injured the left [...] signs: Hawkin's test:Positive, Neer's Sign:Positive Apprehension: Negative Olathe's test: Positive Biceps tenderness: Negative Speed's test: Negative,Yergason's test:Not Tested/Assessed AC tenderness: Negative Crossbody Adduction: Negative Distally neurovascular intact with 2+ radial pulses and full sensation in R/U/M/axillary nerve distribution. Assessment: ICD-10-CM 1. Superior labrum clnxiiko-nm-lrykzwjrz (SLAP) tear of left shoulder S43.432A 2. [...] options today with the patient from conservative tosurgical. Patient states that he is more interested [...] offering him a left glenohumeral injection as heis more symptomatic for the labral tear on exam today. He is electing to proceed with this at this time. We have discussed that if he receives little to no relief from this injection then we will seehim back for a left SA injection. He is electing to proceed with this at this time. He will follow up with us in 3 months for repeat evaluation of the shoulder. Call with any questions or concerns inthe meantime. * Mu Little ATC - 12/30/2022 10:00 AM EDTAssociated Order(s): LARGE JOINT/BURSA INJECTION AND/OR ASPIRATION: L glenohumeral Post-Procedure Diagnose(s): Superior labrum aeiiqeji-gg-sjfeqrtcb (SLAP) tear of left shoulder LARGE JOINT/BURSA [...] fashion. The patient was prepped with alcohol. * Irina Richards MD - 12/30/2022 10:00 AM EDT Chief Complaint Patient presents with Shoulder Pain Left shoulder pain, SA injection received on 09-20-23 with Mir. Pt states that he is still havingsimilar symptoms and requesting injection today, last visit [...] at an indoor skydiving facility and grabbed nahum while flipping over and injured the left [...] signs: Hawkin's test:Positive, Neer's Sign:Positive Apprehension: Negative Olathe's test: Positive Biceps tenderness: Negative Speed's test: Negative,Yergason's test:Not Tested/Assessed AC tenderness: Negative Crossbody Adduction: Negative Distally neurovascular intact with 2+ radial pulses and full sensation in R/U/M/axillary nerve distribution. Assessment: ICD-10-CM 1. Superior labrum zsxnphkh-kf-ftabydtxz (SLAP) tear of left shoulder S43.432A 2. [...] options today with the patient from conservative tosurgical. Patient states that he is more interested [...] offering him a left glenohumeral injection as heis more symptomatic for the labral tear on exam today. He is electing to proceed with this at this time. We have discussed that if he receives little to no relief from this injection then we will seehim back for a left SA injection. He is electing to proceed with this at this time. He will follow up with us in 3 months for repeat evaluation of the shoulder. Call with any questions or concerns inthe meantime. LARGE JOINT/BURSA INJECTION AND/OR ASPIRATION: L [...] diagnosis and developed a plan of care atthis visit. I have reviewed the note following the visit and have add edits as appropriate to my evaluation and plan of care. Irina Richards MD documented in this [facility]02-02-2023 History of Present illness Narrative* Mu Little ATC - 11/21/2022 2:00 PM EST Chief Complaint Patient presents with Shoulder Pain [...] at an indoor skydiving facility and grabbed nahum while flipping over and injured the left [...] signs: Hawkin's test:Positive, Neer's Sign:Positive Apprehension: Negative Olathe's test: Positive Biceps tenderness: Negative Speed's test: Negative,Yergason's test:Not Tested/Assessed AC tenderness: Negative Crossbody Adduction: Negative Distally neurovascular intact with 2+ radial pulses and full sensation in R/U/M/axillary nerve distribution. Assessment: ICD-10-CM 1. Superior labrum rbdicmzv-jn-wkutlahix (SLAP) tear of left shoulder S43.432A 2. [...] options today with the patient from conservative tosurgical. Patient states that he is more interested [...] is understanding of this at this time. Tory elected to proceed forward with the plan in place. He will us in late December for repeat evaluation and likely SA/GH injection. Call the office with any questions or concerns in meantime. * Irina Richards MD - 11/21/2022 2:00 PM EST Chief Complaint Patient presents with Shoulder Pain [...] at an indoor skydiving facility and grabbed nahum while flipping over and injured the left [...] signs: Hawkin's test:Positive, Neer's Sign:Positive Apprehension: Negative Olathe's test: Positive Biceps tenderness: Negative Speed's test: Negative,Yergason's test:Not Tested/Assessed AC tenderness: Negative Crossbody Adduction: Negative Distally neurovascular intact with 2+ radial pulses and full sensation in R/U/M/axillary nerve distribution. Assessment: ICD-10-CM 1. Superior labrum leoqjuoq-vp-bbbpysmgq (SLAP) tear of left shoulder S43.432A 2. [...] options today with the patient from conservative tosurgical. Patient states that he is more interested [...] is understanding of this at this time. Robhas elected to proceed forward with the plan [...] diagnosis and developed a plan of care atthis visit. I have reviewed the note following the visit and have add edits as appropriate to my evaluation and plan of care. Irina Richards MD [facility] History of Present illness Narrative* Erich Rivera - 09/20/2022 7:10 AM EST Referred by: Self Chief Complaint Patient presents [...] shoulder Patient activity (i.e. Job, sport, etc.): [employer] Treatment performed or prescribed at last visit? [...] affect. Appropriate affect. Normal insight. Normal judgment. * Jose Maher, [facility] - 09/20/2022 7:10 AM ESTAssociated Order(s): LARGE JOINT/BURSA INJECTION AND/OR ASPIRATION: L [...] patient. ASSESSMENT and PLAN: 1. Superior labrum ixfinbrw-eh-klipofzbi (SLAP) tear of left shoulder - MRI ARTHROGRAM SHOULDER LEFT 2. Infraspinatus tendonitis, left I am concerned that Siddhartha may have a SLAP lesion. RTC seems [...] many other side effects associated with corticosteroids. * Osman Schilling MD - 09/20/2022 7:10 AM EST Referred by: Self Chief Complaint Patient presents [...] shoulder Patient activity (i.e. Job, sport, etc.): [employer] Treatment performed or prescribed at last visit? [...] patient. ASSESSMENT and PLAN: 1. Superior labrum xxphuuap-rn-bysolbmlw (SLAP) tear of left shoulder - MRI ARTHROGRAM SHOULDER LEFT 2. Infraspinatus tendonitis, left I am concerned that Siddhartha may have a SLAP lesion. RTC seems [...] findings. Additions if any: Osman Schilling MD, [facility] Rural Service Engineer - [facility] documented in this [facility]08-29-[facility]22 History of Present illness Narrative* Teresa Will - 06/17/2022 8:30 AM EDT Referred by: 41 year old male referred by himself Chief Complaint Patient presents with Left Shoulder - Follow-up Patient is here for follow up of his PRP of his left shoulder. He states that his shoulder is stillhurting with certain movements. He does not have [...] affect. Appropriate affect. Normal insight. Normal judgment. * Jose Maher ATC - 06/17/2022 8:30 AM EDTAssociated Order(s): LARGE JOINT/BURSA INJECTION AND/OR ASPIRATION: L subacromial bursa Post-Procedure Diagnose(s): Infraspinatus tendonitis, left Interval exam: Left shoulder Inspection: No erythema, ecchymosis, swelling or deformity. No open wounds. Tender to infraspinatus. NVID XR left shoulder reviewed from 02/11/22 Notes reviewed from 04/17/22 History obtained from patient. ASSESSMENT and PLAN: 1. Infraspinatus tendonitis, left Overall Siddhartha is doing a lot better. He is having a little discomfort in his left shoulder so we elected to proceed with injection again today to the left sub acromial bursa with corticosteroid. We reviewed options once again including surgery, but we are not ready to proceed surgically. We will seehim back as needed. He was given anticipatory [...] many other side effects associated with corticosteroids. * Osman Schilling MD - 06/17/2022 8:30 AM EDT Referred by: 41 year old male referred by himself Chief Complaint Patient presents with Left Shoulder - Follow-up Patient is here for follow up of his PRP of his left shoulder. He states that his shoulder is stillhurting with certain movements. He does not have [...] and PLAN: 1. Infraspinatus tendonitis, left Overall Siddhartha is doing a lot better. He is having a little discomfort in his left shoulder so we elected to proceed with injection again today to the left sub acromial bursa with corticosteroid. We reviewed options once again including surgery, but we are not ready to proceed surgically. We will seehim back as needed. He was given anticipatory [...] findings. Additions if any: Osman Schilling MD, [facility] Rural Service Engineer - [facility] documented in this encounterOhio[facility]06-29-2022 History of Present illness Narrative* Teresa Will - 04/17/2022 9:30 AM EDT Patient is here today for a PRP injection into his left ISP. He states that since his previous visit his pain is low 1-2/10 since the previous injection, but he knows that the shoulder needs to heal properly. * Jose Maher ATC - 04/17/2022 9:30 AM EDTAssociated Order(s): UPPER EXTREMITY INJECTION: left infraspinatus tendon [...] many other side effects associated with corticosteroids. * Osman Schilling MD - 04/17/2022 9:30 AM EDT Patient is here today for a PRP [...] findings. Additions if any: Osman Schilling MD, [facility] Rural Service Engineer - [facility] documented in this [facility]05-26-2022 Instructions* Patient Instructions* Jose Maher ATC - 03/14/2022 10:22 AM EDT This injury consists of a chronic injury to the tendon known as tendinosis or tendinopathy. The treatment consists of an attempt to change a chronic, non- healing status of the tendon into a healing status. This typically consists of treatments focused on stretching and strengthening, especially in the eccentric phase, soft tissue mobilization, and stimulation to bring blood/bleeding to the area. Injections were discussed which fall into line with the concepts above. Occasionally surgical intervention is necessary as well. 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 [...] affect. Appropriate affect. Normal insight. Normal judgment. * Jose Maher, ATC - 03/14/2022 10:00 AM EDTAssociated Order(s): LARGE JOINT/BURSA INJECTION AND/OR ASPIRATION: L subacromial bursa Interval exam: Tender to L shoulder greater tuberosity MRI reviewed from 02/22/22 L shoulder xray reviewed from 02/11/22 Notes reviewed from 02/11/22 History obtained from patient. ASSESSMENT and PLAN: 1. Infraspinatus tendonitis, left Siddhartha's MRI demonstrates abnormal architecture at the insertion site of the infraspinatus. This is caused by repetitive stress, and in return creates disrepair amongst the tendon and its insertion. Siddhartha and I explored several beneficial options for treatment. My first recommendation is a PRP injection as this is the the most advantageous to the remodeling of the tendon. We discussed recieving a HORSE WRANGLER injection which will help reduce the inflammation and render pain relief. During this time he should utilize the therapeutic effects of the HORSE WRANGLER in conjunction with a HEP program to rebuild strength.Another option reccomended is a percutaneous tenotomy which removes damaged tissue and allows the body to remodel the tendon. Today we moved forward with the HORSE WRANGLER injection to his L SA bursa. He [...] of an attempt to change a chronic, non- healing status of the tendon into a healing [...] proceed. 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 [...] ASSESSMENT and PLAN: 1. Infraspinatus tendonitis, left Siddhartha's MRI demonstrates abnormal architecture at the insertion site of the infraspinatus. This is caused by repetitive stress, and in return creates disrepair amongst the tendon and its insertion. Siddhartha and I explored several beneficial options for treatment. My first recommendation is a PRP injection as this is the the most advantageous to the remodeling of the tendon. We discussed recieving a HORSE WRANGLER injection which will help reduce the inflammation and render pain relief. During this time he should utilize the therapeutic effects of the HORSE WRANGLER in conjunction with a HEP program to rebuild strength.Another option reccomended is a percutaneous tenotomy which removes damaged tissue and allows the body to remodel the tendon. Today we moved forward with the HORSE WRANGLER injection to his L SA bursa. He [...] of an attempt to change a chronic, non- healing status of the tendon into a healing [...] findings. Additions if any: Osman Schilling MD, [facility] Rural Service Engineer - [facility] documented in this encounterOhio[facility]Eval[facility] [place] [facility]* Diagnosis Infraspinatus tendonitis, left- Primary [facility]* Diagnosis Infraspinatus tendonitis, left- Primary [facility] this [facility]* Diagnosis Infraspinatus tendonitis, left- Primary documented [facility] this [facility]* Diagnosis Superior labrum trdmyvki-dc-krwwxhdru (SLAP) tear of left shoulder documented [facility] this encounter [facility]* Diagnosis Superior labrum fapdiwur-ye-uurmqnvbu (SLAP) tear of left shoulder- Primary Infraspinatus tendonitis, left Claustrophobia Other isolated or specific phobias Superior labrum czxmjpol-es-reigxgndz (SLAP) tear of left shoulder documented [facility] this encounter [facility]* Diagnosis Superior labrum zupopqke-di-nkgmqncmw (SLAP) tear of left shoulder- Primary Impingement syndrome of left shoulder Other affections of shoulder region, not elsewhere classified Biceps tendonitis on left Bicipital tenosynovitis Arthritis of left acromioclavicular joint documented in this encounter [facility]* Diagnosis Superior labrum ulscblnf-gu-svyxtobsx (SLAP) tear of left shoulder- Primary Biceps tendonitis on left Bicipital tenosynovitis documented in this encounter [facility]* Diagnosis Impingement syndrome of left shoulder- Primary Other affections of shoulder region, not elsewhere classified documented [facility] this encounter [facility]* Diagnosis Impingement syndrome of left shoulder- Primary Other affections of shoulder region, not elsewhere classified Superior labrum ufktlzed-hg-tfvwetiey (SLAP) tear of left shoulder Biceps tendonitis on left Bicipital tenosynovitis Arthritis of left acromioclavicular joint documented in this encounter [facility]* Diagnosis Tear of left rotator cuff, unspecified tear extent, unspecified whether traumatic- Primary Superior labrum aicaueqn-sp-zabrddscq (SLAP) tear of left shoulder Impingement syndrome of left shoulder Other affections of shoulder region, not elsewhere classified Biceps tendonitis on left Bicipital tenosynovitis Arthritis of left acromioclavicular joint documented [facility] this encounter [facility]* Diagnosis Tear of left rotator cuff, unspecified tear extent, unspecified whether traumatic- Primary Superior labrum hnvboxnv-ti-hftflcryt (SLAP) tear of left shoulder Impingement syndrome of left shoulder Other affections of shoulder region, not elsewhere classified Biceps tendonitis on left Bicipital tenosynovitis Arthritis of left acromioclavicular joint Tear of left rotator cuff, unspecified tear extent, unspecified whether traumatic Superior labrum nekwyauh-ji-yvjwjhitx (SLAP) tear of left shoulder Impingement syndrome of left shoulder Other affections of shoulder region, not elsewhere classified Biceps tendonitis, left Arthritis of left acromioclavicular joint documented in this encounter [facility]* Diagnosis S/P rotator cuff repair- Primary Other postprocedural status documented [facility] this [facility]* Diagnosis S/P rotator cuff repair- Primary Other postprocedural status Status post labral repair of shoulder documented in this encounter [facility] HospitalHistory general Narrative - Reported* Type Description Date Surgical History tonsillectomy Surgical History PE tubes Surgical History Shoulder surgery [facility] Other Reason for Referral Specialty Diagnoses / Procedures Referred By Betty montes Referred To Contact Diagnoses Infraspinatus tendonitis, left Procedures US IMAGING FOR ORTHO Osman Schilling MD [address] [place] [address] [place] [address] Referral ID Status Reason Start Date Expiration Date V isits Requested Visits Authorized [id number] New Request 04/17/2022 2023 1 1 Specialty Diagnoses / Procedures Referred By Betty montes Referred To Contact Diagnoses Superior labrum vftgtqlj-ks-wczfslwbm (SLAP) tear of left shoulder Procedures MRI SHOULDER LEFT WITH CONTRAST MI MRI, JOINT UPPER EXTREM W/CONTRAST Osman Schilling MD [address] [place] [address] [place] [address] Referral ID Status Reason Start Date Expiration Date Visits Re quested Visits Authorized [id number] Closed 09/20/2022 10/15/2023 1 1 Specialty Diagnoses / Procedures Referred By Contac t Referred To Contact Diagnoses Superior labrum cesbmjct-uj-vshvkvlgs (SLAP) tear of left shoulder Procedures XR FLUORO ARTHROGRAM SHOULDER LEFT Osman Schilling MD [address] [facility] [place] [address] [place] [address] Referral ID Status Reason Start Date Expiration Date Visits Re quested Visits Authorized [id number] Closed 09/20/2022 10/15/2023 1 1 Specialty Diagnoses / Procedures Referred By Contac t Referred To Contact Physical Therapy Diagnoses S/P rotator cuff repair Daniel Hickman, AUT[employer] CLE[employer] [address] [place] [address] Referral ID Status Reason Start Date Expiration Date V isits Requested Visits Authorized [id number] New Request 10/09/2023 11/02/2024 1 1 Scheduling Instructions . Summary Purpose Family History No Family History Records FoundNo Family History Records FoundNo Family History Records FoundNo Family History Records Found Advance Directives No Advanced Directives Records FoundNo Advanced Directives Records FoundNo Advanced Directives Records FoundNo Advanced Directives Records Found Additional Source Comments Care Teams (unrecognized sec tion and content) Paste Up Copy Camera Operator Relationship Specialty Start Date End Date Yaritza Dowling MD [address] [place] [address] PCP - General Family Medicine 02/11/22 Paste Up Copy Camera Operator Relationship Specialty Start Date End Date Yaritza Dowling MD [address] [facility] [place] [address] PCP - General Family Medicine 02/11/22 Paste Up Copy Camera Operator Relationship Specialty Start Date End Date Yaritza Dowling MD [address] [facility] [place] [address] PCP - General Family Medicine 02/11/22 Paste Up Copy Camera Operator Relationship Specialty Start Date End Date Yaritza Dowling MD [address], [place] [id number] PCP - General Family Medicine 02/11/22 Paste Up Copy Camera Operator Relationship Specialty Start Date End Date Yaritza Dowling MD [address], [place] [id number] PCP - General Family Medicine 02/11/22 Paste Up Copy Camera Operator Relationship Specialty Start Date End Date Yaritza Dowling MD [address], [place] [id number] PCP - General Family Medicine 02/11/22 Paste Up Copy Camera Operator Relationship Specialty Start Date End Date Yaritza Dowling MD [address] [place] [address] PCP - General Family Medicine 02/11/22 Paste Up Copy Camera Operator Relationship Specialty Start Date End Date Yaritza Dowling MD [address], [place] [address] PCP - General Family Medicine 02/11/22 Paste Up Copy Camera Operator Relationship Specialty Start Date End Date Yaritza Dowling MD [address], [place] [id number] PCP - General Family Medicine 02/11/22 Paste Up Copy Camera Operator Relationship Specialty Start Date End Date Yaritza Dowling MD [address], [place] [id number] PCP - General Family Medicine 02/11/22 Paste Up Copy Camera Operator Relationship Specialty Start Date End Date Yaritza Dowling MD [address], [place] [id number] PCP - General Family Medicine 02/11/22 Paste Up Copy Camera Operator Relationship Specialty Start Date End Date Yaritza Dowling MD [address], [place] [address] PCP - General Family Medicine 02/11/22 Paste Up Copy Camera Operator Relationship Specialty Start Date End Date Yaritza Dowling MD [address] [address], [place] [address] PCP - General Family Medicine 02/11/22 Paste Up Copy Camera Operator Relationship Specialty Start Date End Date Yaritza Dowling MD [address], [place] [address] PCP - General Family Medicine 02/11/22 Paste Up Copy Camera Operator Relationship Specialty Start Date End Date Yaritza Dowling MD [address], [place] [address] PCP - General Family Medicine 02/11/22 Reason for Visit (unrecogniz ed section and content) ER Follow Up-[facility] Specialty Diagnoses / Procedures Referred By Betty montes Referred To Contact Magnetic Resonance Imaging Diagnoses Tear of left rotator cuff, unspecified tear extent, unspecified whether traumatic Procedures MRI SHOULDER LEFT WITHOUT CONTRAST MI MRI, JOINT UPPER EXTREM Osman Schilling MD [address] [place] [address] [address] [place] [address] [facility] [address] [place] [address] Referral ID Status Reason Start Date Expiration Date Visits Re quested Visits Authorized [id number] Closed 02/11/2022 03/08/2023 1 1 Reason Comments MRI Results Reason Comments Follow-up Pain Joint Injection Specialty Diagnoses / Procedures Referred By Betty t Referred To Contact Diagnoses Infraspinatus tendonitis, left Procedures US IMAGING FOR ORTHO Osman Schilling MD [address] [place] [id number] Referral ID Status Reason Start Date Expiration Date V isits Requested Visits Authorized [id number] New Request 04/17/2022 2023 1 1 Reason Comments Follow-up Specialty Diagnoses / Procedures Referred By Contac t Referred To Contact Diagnoses Superior labrum lbbadmkq-ps-gzwljwwlv (SLAP) tear of left shoulder Procedures XR FLUORO ARTHROGRAM SHOULDER LEFT Osamn Schilling MD [address] [place] [address] Referral ID Status Reason Start Date Expiration Date Visits Re quested Visits Authorized [id number] Closed 09/20/2022 10/15/2023 1 1 Specialty Diagnoses / Procedures Referred By Contac t Referred To Contact Diagnoses Superior labrum mcrltcob-ep-fbchyaors (SLAP) tear of left shoulder Procedures MRI SHOULDER LEFT WITH CONTRAST MI MRI, JOINT UPPER EXTREM W/CONTRAST Osman Schilling MD [address] [place] [id number] Referral ID Status Reason Start Date Expiration Date Visits Re quested Visits Authorized [id number] Closed 09/20/2022 10/15/2023 1 1 Reason Comments [...] shoulder. Specialty Diagnoses / Procedures Referred By Contac t Referred To Contact Orthopaedics Diagnoses Superior labrum bktzjvfu-cf-kzsspandn (SLAP) tear of left shoulder Osman Schilling MD [address] [place] [id number] Irina Richards MD [address] [place] [address] Referral ID Status Reason Start Date Expiration Date V isits Requested Visits Authorized [id number] New Request 10/10/2022 11/04/2023 1 1 Reason [...] Specialty Diagnoses / Procedures Referred By Betty t Referred To Contact Diagnoses Tear of left rotator cuff, unspecified tear extent, unspecified whether traumatic Superior labrum udtecvyo-ce-rfxybqqqf (SLAP) tear of left shoulder Impingement syndrome of left shoulder Biceps tendonitis, left Arthritis of left acromioclavicular joint Tear of left rotator cuff, unspecified tear extent, unspecified whether traumatic [M75.102] Superior labrum lxrnphec-de-dbauicatq (SLAP) tear of left shoulder [S43.432A] Impingement syndrome of left shoulder [M75.42] Biceps tendonitis, left [M75.22] Arthritis of left acromioclavicular joint [M19.012] Procedures MI SHLDR ARTHROSCOP,SURG,W/ROTAT CUFF REPR MI SHOULDER SCOPE BONE SHAVING MI ARTHROSCOPY SHOULDER SURGICAL BICEPS TENODESIS MI SHLDR ARTHROSCOP,SURG,DIS CLAVICULECTOMY ARTHROSCOPY SHOULDER W/ ROTATOR CUFF REPAIR ARTHROSCOPY SHOULDER W/ SUBACROMIAL DECOMPRESSION/ACROMIOPLASTY ADD-ON PX ARTHROSCOPY SHOULDER W/ BICEPS TENODESIS ARTHROSCOPY SHOULDER W/ DISTAL CLAVICULECTOMY Irina Richards MD [address] [place] [id number] Referral ID Status Reason Start Date Expiration Date Visits Re quested Visits Authorized [id number] 10/01/2023 1 1 Reason Comments Post Op [...] spital DATE CREATED AUTHOR AUTHOR'S ORGANIZ ATION 10/25/2023 [facility] Continuous Active and Recently Administ ered [...] 2 g, Intravenous, Administer over 15 Minutes, ANIMAL CARETAKER TO PROCEDURE, 1 dose, Starting on Marianela [...] Starting on Marianela 10/09/23 at 1017, Until Fri10/10/23 at 1030, Ilir Loredo: cabinet override [id number] [...] BE BASED ON THE PRIMARY CLINICAL RECORDS. [employer] provides no warranty or guarantee of the accuracy or completeness of information in this document.
--- NOTE | 2023-11-10 09:59 | CA_ITS ---
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: : 1980 Requested By: Teresa Lau Order Number: [id number] Reading MD: GALEN MENDEZ Interpretive Statements Predominant rhythm is sinus with average rate of 66 bpm Tachycardia - max rate of 118 bpm (sinus tachycardia) - longest episode of 3min 20sec with rates between 110-118 bpm Bradycardia (30% burden) - min rate of 41 bpm, occurring during sleep - longest epsisode of 51min 17sec with rates between 45-52 bpm Ventricular ectopy - 5 PVC Patient triggered events: 2 - associated with palpitations - associated with NSR Impression: Predominant rhythm is sinus with average rate of 66 bpm Fastest rate of 118 bpm (sinus tachycardia) and slowest rate of 41 bpm (occurring during sleep) 5 PVC No atrial fibrillation No pauses or blocks Electronically Signed On 11-21-2023 7:14:17 EST by GALEN MENDEZ
--- NOTE | 2023-11-10 09:59 | CA_ITS ---
Patient Name: SIDDHARTHA OLIVEROS MR#: [id number] : 1980 Exam Date: 11/10/2023 Ordering Doctor: KOURTNEY CROUCH 911 DISPATCHER-C ECHOCARDIOGRAM REPORT PROCEDURE: CA ECHO DOPPLER COMPLETE INDICATIONS: Syncope, palpitations, abnormal ECG COMPARISON: None. DESCRIPTION: COMPLETE ECHOCARDIOGRAM Real-time transthoracic echocardiography with 2D, M-mode, spectral and color flow Doppler performed. QUALITY: Technical quality was good. LEFT VENTRICLE: Normal chamber size. Normal left ventricular wall thickness. LV EF: Global left ventricular systolic function is normal. Visual estimation of left ventricular ejection fraction is 60-65%. No wall motion abnormalities. DIASTOLIC: Normal diastolic function. ATRIAL SEPTUM: Inadequately seen. LEFT ATRIUM: Normal chamber size. RIGHT ATRIUM: Normal chamber size. RIGHT VENTRICLE: Normal chamber size. Normal right ventricular systolic function. TRICUSPID VALVE: Normal mobility and thickness. No stenosis with trivial regurgitation. No evidence of pulmonary hypertension. RVSP 27mmHg MITRAL VALVE: Normal mobility and thickness. No evidence of mitral valve stenosis. There is no mitral annular calcification. Trivial mitral regurgitation. AORTIC VALVE: Probably trileaflet appearance. No visible sclerosis. Normal leaflet mobility. No evidence of aortic valve stenosis. No aortic regurgitation. AORTIC ROOT: Normal diameter and appearance. PULMONIC VALVE: Grossly normal. No stenosis. No regurgitation. PERICARDIUM: No evidence of pericardial effusion. IVC: Collapses with inspirations. CONCLUSION: 1. Global left ventricular systolic function is normal; visually estimated ejection fraction is 60 to 65% 2. Normal right ventricular size and systolic function 3. The left atrium is normal in size 4. No significant valvular abnormalities Adult Echocardiography Procedure Report Left Ventricle LVEDD (3.7 - 5.6 cm): 4.72 cm LVESD (2.2 - 4.0 cm): 3.36 cm LVIVS thickness (0.6 - 1.2 cm): 0.80 cm LVPW thickness (0.5 - 1.0 cm): 0.79 cm e': 0.16 m/s E - e': 4.44 LVOT Max Gradient: 3.80 mm[Hg] LVOT Area (cm2): 0.97 m/s Peak Velocity (LVOT): 0.97 m/s Mean Velocity (LVOT): 0.63 m/s LVOT Diameter 1.98 cm Left Ventricular Ejection Fraction: 71.92 % Left Atrium LA Volume Index (2D A2C): 24.94 ml/m2 Left Atrium Systolic Dimension: 3.13 cm Mitral Valve MV E to A Ratio: 1.41 Mitral Valve A-Wave Peak Velocity: 0.50 m/s Mitral Valve E-Wave Peak Velocity: 0.71 m/s Right Ventricle RV Internal Diastolic Dimension: 3.81 cm Aorta AO Root Diam: 2.64 cm Aortic Valve AoV Area ([place]): 2.12 cm2, 2.12 cm2 AoV Area (VTI): 2.01 cm2, 2.01 cm2 Peak Velocity(Antegrade Flow): 1.40 m/s Peak Gradient(Antegrade Flow): 7.89 mm[Hg] Mean Velocity(Antegrade Flow): 0.98 m/s Mean Gradient(Antegrade Flow): 4.38 mm[Hg] Velocity Time Integral: 31.29 cm Tricuspid Valve Peak Velocity (Regurgitant Flow): 2.15 m/s, 1.85 m/s, 2.43 m/s Pulmonic Valve Peak Velocity: 1.16 m/s Peak Gradient: 6.64 mm[Hg], 4.19 mm[Hg] Right Atrium Right Atrium Systolic Pressure: 49.79 ml, 49.79 ml Dictated by: Froilan Del Angel M.D. on 11/11/2023 at 10:12 Approved by: Froilan Del Angel M.D. on 11/11/2023 at 10:14
== END 2023-11-10 08:42 | disposition home or self-care (01) ==
LOC: CARD 08:41
PROVIDERS: Visit Provider Nurse Practitioner Family
DX: R55 Syncope and collapse (principal); R00.2 Palpitations; R94.31 Abnormal electrocardiogram [ECG] [EKG]
CPT/HCPCS: 93242; 93306